=== PATIENT | male | born 1945 | race African-American/Black ===

== ENCOUNTER 2020-01-22 17:54 | Inpatient (IN) | payer MEDICARE, OTHER ==
--- NOTE | 2020-01-22 21:01 | PDOC.HHP ---
Hospitalist HPI - History of Present Illness chest pain, a-fib History of Present Illness: Mr. Lee is a 75 year-old male with a PMHx of T2DM, HTN, HLD< gout, anxiety, schizophrenia, tobacco abuse who was transferred from [facility] for chest pain r/o and new-onset a-fib. Mr. Lee reports that over the past two weeks he has had chest discomforts which he describes as a pressure at the bottom of his kianna rnum. Also endorses sour-stomach, but denies SOB, palpitations, dizziness. Denies peluritic pain. Pain is intermittent and not associated with food. Denies aggravating/alleviating factors. States he has been to the ER a few times a year for chest pain, but that they never find anything. No cardiac history. Pt reports his ENT doctor told him he was in a-fib once when he listened to his heart, but has never seen a devulcanizer loader or had his PCP work this up. CHADsVASc score of 4 (CHF, HTN, Age, DM). Patient denies any history of uncontrolled HTN, GIB, or any other bleeding disorders. In the ED vital signs 125/87, 106, 20, 99.0, 98% on RA. EKG showed a-fib with ventricular rate of 110. CXR with mild cardiomegaly. BNP elevated to 395, Troponin elevated at 0.040, H/H 13.2/41.5, WBC 7.2. CKMB 2.0. Na 139, K 3.0, BUN/Cr 14/1.47. Patient received 325 mg of ASA and 20 mg furosemide IV. Hospitalist ROS - Review of Systems Constitutional: denies: fever, chills, sweats, weakness, malaise, other Eyes: denies: pain, vision change, conjunctivae inflammation, eyelid inflammation, redness, other ENT: denies: ear pain, ear discharge, nose pain, nose discharge, nose congestion, mouth pain, mouth swelling, throat pain, throat swelling, other Respiratory: denies: cough, dry, shortness of breath, hemoptysis, SOB with excertion, pleuritic pain, sputum, wheezing, other Cardiovascular: reports: chest pain. denies: palpitations, orthopnea, paroxysmal noc. dyspnea, edema, light headedness, other Gastrointestinal: denies: nausea, vomiting, abdominal pain, diarrhea, constipation, melena, hematochezia, other Genitourinary: denies: dysuria, frequency, incontinence, hematuria, retention, other Musculoskeletal: denies: neck pain, shoulder pain, arm pain, back pain, hand pain, leg pain, foot pain, other Skin: denies: rash, lesions, mari, bruising, other Neurological: denies: weakness, numbness, incoordination, change in speech, confusion, seizures, other - Medication Medications: Home medications include: HCTZ 25 mg daily Risperdal 0.5 mg qhs Simethicone 80 mg with meals Atorvastatin 10 mg daily Protonix 40 mg daily Metfromin 500 mg BID ASA 81 mg daily Amlodipine 10 mg daily Naproxen 250 mg daily VItamin D Trazodone 100 mg qhs Fluoxetine 20 mg daily allopurinol 300 mg daily loratadine 10 mg prn hydroxyzine 50 mg prn anxiety ativan 2 mg prn anxiety NKDA Hospitalist History - Past Medical History Other Medical History: Type 2 DM HTN HLD Schizophrenia Gout Tobacco use GERD No history of cardiac disease, although pt states he has had episodes of chest pain in the past which have all been negative. Has been years since had a stress test. - Past Surgical History Other Surgical History: appendectomy - Family History Other Family History: cardiac - Social History Smoking Status: Current every day smoker Tobacco Type: snuff Alcohol: reports: None Drugs: reports: none Living Situation: With Family Activity level: independent ambulation - Exam General Appearance: NAD, awake alert Eye: PERRL, anicteric sclera ENT: normocephalic atraumatic, no oropharyngeal lesions, moist mucosa Neck: supple, symmetric, no JVD, no thyromegaly, no lymphadenopathy, no carotid bruit Heart: no murmur, no gallops, no rubs, normal peripheral pulses, irregular Respiratory: CTAB, no wheezes, no rales, no ronchi, normal chest expansion, no tachypnea, normal percussion Gastrointestinal: soft, non-tender, non-distended, normal bowel sounds, no palpable masses, no hepatomegaly, no splenomegaly, no bruit Extremities: no cyanosis, 2+ LE edema Skin: normal turgor, no lesions, no rashes Neurological: cranial nerve grossly intact, normal sensation to touch, no weakness, no focal deficits, no new deficit Musculoskeletal: normal tone, normal strength, no muscle wasting Psychiatric: normal affect, normal behavior, A&O x 3 Hospitalist Results - Labs Result Diagrams: 01/22/20 22:58 Hospitalist H&P A/P - Problem (1) Chest pain Code(s): R07.9 - CHEST PAIN, UNSPECIFIED Status: Acute (2) Atrial fibrillation Code(s): I48.91 - UNSPECIFIED ATRIAL FIBRILLATION Status: Acute (3) Elevated troponin Code(s): R79.89 - OTHER SPECIFIED ABNORMAL FINDINGS OF BLOOD CHEMISTRY Status: Acute (4) Type 2 diabetes mellitus Status: Acute (5) Hypertension Code(s): I10 - ESSENTIAL (PRIMARY) HYPERTENSION Status: Acute (6) Hyperlipidemia Code(s): E78.5 - HYPERLIPIDEMIA, UNSPECIFIED Status: Acute (7) GERD (gastroesophageal reflux disease) Code(s): K21.9 - GASTRO-ESOPHAGEAL REFLUX DISEASE WITHOUT ESOPHAGITIS Status: Acute (8) Schizophrenia Code(s): F20.9 - SCHIZOPHRENIA, UNSPECIFIED Status: Acute (9) Gout Code(s): M10.9 - GOUT, UNSPECIFIED Status: Acute - Plan Plan: Chest pain: 75M hx of HTN, HLD, T2DM presents with 2 weeks of intermittent chest pain described as a substernal pressure found to be in atrial fibrillation. Initial troponin 0.040. EKG showed a-fib with ventricular rate of 110. Pt HD stable. Received ASA 325 at OSH. Pt denies history of cardiac problems. Last stress test was years ago. PLAN: -Telemetry -Trend troponins -Stress test in am if troponins do not rise -Echocardiogram Atrial fibrillation: New onset a-fib in 75M. CHADsVASc score 4. Pt denies history of GIB, but does take naproxen and ASA regularly. No recent surgeries or bleeding disorders. Patient describes chest discomfort likely 2/2 to his a-fib for the past two weeks, likely out of the 48 hr window. Will initiate anticoagulation with heparin drip and initiate rate control with IV metoprolol. Cardiology input appreciated. PLAN: -Echocardiogram -TSH, Mg, Ca, Phos -Cardiology consult -Metoprolol -AC with heparin drip Elevation in Cr level: BUN/Cr 14/1.47. Unsure of baseline, but Cr in 2014 was 1.1, ? MATT. Pt denies history of CKD, although has not seen PCP in years. May be component of cardiorenal 2/2 CHF, so will hold off on IVF and monitor at this time. PLAN: -Trend renal function -Avoid nephrotoxic medications when possible Congestive Heart Failure: Pt p/w chest discomfort. Found to have mild JVD and 2+ LE edema on exam. BNP elevated to 395. CXR with stable cardiomegaly. Received 20 mg lasix IV at OSH. Lungs clear. 2+ edema. Respiratory status stable. No echo on file. Pt denies history of CHF. PLAN: -Echocardiogram -Cardiology consult -Continue to monitor respiratory and fluid status Hypomagnesemia: Mg low normal of 1.7. Will replete to maintain >2 for cardiac optimization. PLAN: -Magnesium 2 g IV -Monitor and replete as needed Type 2 DM: Hx of T2DM on metformin. Will hold in setting of elevated Cr. PLAN: -ISS mild -CC diet -ACHS glucose checks Schizophrenia: Hx of schizophrenia on risperdal, ativan, fluoxetine, and traxodone. Will continue home medications. Mood stable. Hypertension: On home amlodipine, HCTZ. Will hold to allow for room in BP to rate-control a- fib. Hyperlipidemia: On home atorvastatin. Continue. Will check lipid level in am. GERD: On home protonix, simethicone. Will continue home meds. Gout: Continue home allopurinol. Pt denies any current symptoms. DVT prophylaxis: Heparin drip 2/2 a-fib FULL CODE: MDM Pt's sister Wilver Lee. Case discussed with attending physician, Dr. Conklin.
[2020-01-22 21:55] LABS: Troponin I 0.054 ng/mL (< 0.028)
[2020-01-22] MEDS ORDERED: Heparin 10,000 UNITS/ 10 ML VIAL SLOW IVP SCH (22:30)
[2020-01-22] MEDS ORDERED: Heparin 25,000 units/D5W 500 ML IVPB SCH (22:30)
[2020-01-22] MEDS ORDERED: Metoprolol Tartrate 25 MG TAB PO SCH (23:15)
[2020-01-22] MEDS ORDERED: Magnesium 2 GM/50 ML 2 GM in Premix Bag 1 BAG IVPB SCH (23:15)
[2020-01-22] MEDS ORDERED: Metoprolol Tartrate 5 MG/5 ML VIAL IVP SCH (23:15)
[2020-01-22 23:35] VITALS: BMI 37.0
[2020-01-23 00:28] LABS: Hemoglobin 13.1 g/dL (14.0-18.0); Platelet Count 278 thou/uL (130-400)
[2020-01-23 00:53] LABS: Troponin I 0.049 ng/mL (< 0.028)
[2020-01-23] MEDS ORDERED: Dextrose 5% in Water 1,000 ML IV PRN (02:52)
[2020-01-23] MEDS ORDERED: HumaLOG 300 UNITS/3 ML VIAL SC PRN ×2 (02:52)
[2020-01-23] MEDS ORDERED: Dextrose 50% Abboject 50 ML SYRINGE SLOW IVP PRN (02:52)
[2020-01-23 04:53] LABS: Anion Gap 14 mmol/L (10-20); BUN (Urea Nitrogen) 17 mg/dL (8.4-25.7); Calc. Creatinine Clearance 66 mL/min (70-130); Calcium 8.8 mg/dL (7.8-10.44); Carbon Dioxide 21 mmol/L (23-31); Chloride 107 mmol/L (98-107); Estimated GFR-MDRD 64; Glucose 124 mg/dL (83-110); Magnesium 2.1 mg/dL (1.6-2.6); Potassium 4.3 mmol/L (3.5-5.1); Sodium 138 mmol/L (136-145)
[2020-01-23 04:56] LABS: Eosinophils 4 % (0-10); Hemoglobin 13.4 g/dL (14.0-18.0); Lymphocytes 57 % (21-51); MDiff Complete? YES; Mean Corpuscular Hemoglobin 30.1 pg (27.0-31.0); Mean Corpuscular Volume 88.5 fL (78.0-98.0); Mean Platelet Volume 7.6 fL (7.4-10.4); Monocytes 6 % (0-10); Neutrophil 28 % (42-75); Platelet Count 259 thou/uL (130-400); Reactive Lymphocytes 5 % (0-10); Red Blood Cell (RBC) Count 4.46 mill/uL (4.70-6.10)
[2020-01-23 05:14] LABS: CKMB 1.6 ng/mL (0-6.6)
[2020-01-23] MEDS ORDERED: Metoprolol Tartrate 25 MG TAB PO SCH (09:00)
[2020-01-23] MEDS ORDERED: Regadenoson 0.4 MG/5 ML SYRINGE ONE (11:56)
[2020-01-23 11:59] LABS: SARS-CoV-2 MS2 Positive; SARS-CoV-2 N Gene Negative; SARS-CoV-2 S Gene Negative; SARS-CoV-2 by NAA Not Detected (NotDetected); SARS-CoV-2 orf1ab Negative
--- NOTE | 2020-01-23 14:15 | NM ---
NUCLEAR MEDICINE CARDIAC MYOCARDIAL PERFUSION SPECT EJECTION FRACTION STUDY WALL MOTION CINE: DATE: 01/23/2020 HISTORY: 75-year-old male smoker with dyslipidemia, diabetes mellitus, hypertension, and atrial fibrillation, presents with chest pain TECHNIQUE: Number of days: 1 Rest study: Technetium 99m-sestamibi (Cardiolite) dose:9.7 mCi Pharmacologic stress: Lexiscan dose: 0.4 mg Stress study: Technetium 99m-sestamibi (Cardiolite) dose:27.6 mCi FINDINGS: CARDIAC (MYOCARDIAL PERFUSION) SPECT Fixed myocardial perfusion defect at anteroseptal wall. Apparent fixed defect at posterior inferior w all. No reversible perfusion defect identified.. EJECTION FRACTION STUDY Left ventricular EF = 23 % WALL MOTION CINE Global hypokinesis, especially septum IMPRESSION: 1) Global hypokinesis and very low left ventricular ejection fraction of 23%. 2) infarction/scars. 3) no reversible ischemia identified
[2020-01-23] MEDS ORDERED: Aspirin 81 mg Enteric Coated Tablet PO SCH (15:30)
[2020-01-23] MEDS ORDERED: Communication Order-Pharmacy FS SCH (15:45)
--- NOTE | 2020-01-23 16:50 | PDOC.EVN ---
Event Note - Event Note Event Note: notified at 4:30pm that patient requests to leave AMA. Spoke with patient and informed patient regarding stress test results, their meaning, and his possible risk for sudden . Patient said he would stay. About 5 minutes later, patient decided to leave AMA. Called again and asked patient to stay but patient claimed he had social issues that had to be taken care of. Asked patient to see his primary care physician as soon as possible to resume care.
[2020-01-23 16:59] VITALS: BP 136/88; TEMP 99.1
[2020-01-23] MEDS ORDERED: Carvedilol 6.25 MG TAB PO SCH (17:00)
--- NOTE | 2020-01-23 20:33 | PDOC.HOSPP ---
- Subjective Encounter Date: 01/23/20 Encounter Time: 09:00 Subjective: no overnight events. this morning, feeling well and has no complaints. Chest pain resolved. Requested to leave but explained regarding current condition, risk of treatment and nontreatment. Reiterated and expressed understanding, decisional capacity. - Objective Vital Signs & Weight: Vital Signs (12 hours) Temp Pulse Resp BP Pulse Ox 01/23/20 14:02 99.1 F 85 18 136/88 99 Weight Weight 215 lb 11.2 oz I&O: 01/22/20 01/23/20 01/24/20 06:59 06:59 06:59 Intake Total 535 Output Total 150 Balance 385 Result Diagrams: 01/23/20 04:20 01/23/20 04:20 Additional Labs: Accuchecks 01/23/20 01/23/20 14:05 06:01 POC Glucose 120 H 108 H Hospitalist ROS - Review of Systems Constitutional: denies: chills, sweats Respiratory: denies: cough, shortness of breath, SOB with excertion Cardiovascular: reports: edema. denies: chest pain, palpitations, orthopnea, paroxysmal noc. dyspnea Gastrointestinal: denies: nausea, vomiting, abdominal pain Genitourinary: denies: dysuria, frequency, hematuria - Exam General Appearance: NAD, awake alert Neck: JVD Heart: no murmur, no gallops, irregular Heart - other findings: variable aflut on telemetry Respiratory: CTAB, no wheezes, no rales, no ronchi Gastrointestinal: soft, non-tender, non-distended, normal bowel sounds Extremities - other findings: b/l equal pitting edema to knee level Psychiatric: normal affect, A&O x 3 Psychiatric - other findings: hypomanic Hosp A/P - Plan #chest pain -atypical pain, intermediate pretest probability; -pending stress test, cardiology evaluation #atrial fibrillation per patient, was diagnosed 3 years ago but not anticoagulated currently on heparin based on CHADSVASC, rate well controlled continue current management Full code ELOS 1-2 nights
--- NOTE | 2020-01-23 22:21 | CON ---
DATE OF CONSULTATION: HISTORY: Ashish Lee is a 75-year-old black male, who was transferred from [facility] for evaluation of chest discomfort and atrial fibrillation. Over the last 2 weeks, he did have episodes of chest pressure, some of which would last for 1 or 2 days continuously. He also has had some shortness of breath and palpitations. He was told approximately 2 years ago by his .net architect that he had an abnormal heart rhythm and was probably in atrial fibrillation. He has not had that evaluated though. He has been found to have an abnormal Cardiolite and Cardiology consultation is requested. At the present time, the patient denies any symptoms. PAST MEDICAL HISTORY: Remarkable for hypertension, diabetes, hypercholesterolemia, schizophrenia, gout, and GERD. PAST SURGICAL HISTORY: Appendectomy. MEDICATIONS: 1. Hydrochlorothiazide daily. 2. Risperdal 0.5 at bedtime. 3. Atorvastatin 10 mg daily. 4. Protonix 40 daily. 5. Metformin 500 b.i.d. 6. Aspirin 81 daily. 7. Amlodipine 10 mg daily. 8. Naproxen 250 2 tablets q.a.m. 9. Trazodone 100 mg at bedtime. 10. Fluoxetine 20 daily. 11. Allopurinol 300 daily. 12. Loratadine 10 mg p.r.n. 13. Hydroxyzine 50 mg p.r.n. 14. Ativan 2 mg p.r.n. anxiety. ALLERGIES: NONE. SOCIAL HISTORY: He smokes 4 or 5 cigarettes per day and dips snuff. He does not drink alcohol. REVIEW OF SYSTEMS: A 10-point review of systems unremarkable. PHYSICAL EXAMINATION: VITAL SIGNS: Blood pressure 112/57, pulse of 80. HEENT: PERRL. NECK: Supple. CHEST: Clear. CARDIAC: S1 and S2 normal without any S3, S4, or murmurs. ABDOMEN: Normal bowel sounds without tenderness or organomegaly. EXTREMITIES: Revealed no clubbing, cyanosis, or edema. NEUROLOGIC: Grossly intact. SKIN: Warm and dry. LABORATORY DATA: EKG reveals atrial fibrillation with nonspecific ST and T-wave changes. Hemoglobin 13.4, hematocrit 39.5, white count 7000, platelets 259,000. Sodium 138, potassium 4.3, chloride 107 carbon dioxide 21, BUN 17, creatinine 1.31; creatinine was 1.47 at admission. Troponin I is 0.054. TSH is normal. Adenosine Cardiolite test revealed a fixed anteroseptal and posterior inferior wall defects There was no evidence of reversible ischemia. Ejection fraction was 23% with global hypokinesis, especially the septum. IMPRESSION: 1. Severe left ventricular dysfunction with ejection fraction on Cardiolite of 23%. 2. Fixed myocardial defects of the anteroseptal wall and the posterior inferior wall, probable coronary artery disease. 3. Hypertension. 4. Diabetes. 5. Hypercholesterolemia. 6. Smoker. 7. History of schizophrenia. PLAN: With left ventricular dysfunction, metoprolol will be discontinued, and instead, he will be transitioned to carvedilol. Echocardiogram will be performed to better assess left ventricular function. With his abnormal Cardiolite and multiple cardiac risk factors, it is recommended that he undergo cardiac catheterization. Risks of this were discussed including , myocardial infarction, dye reaction, vascular injury, CVA, transfusion, limb loss, renal loss, etc. Also, risk of intervention with PTCA and stent placement were discussed including , myocardial infarction, emergent CABG, restenosis, stent thrombosis, vessel perforation, etc. He has no history of GI bleeding or stroke or upcoming surgeries and a drug-eluting stent will be placed if needed. Also, with his renal insufficiency, I would not renew his home medicines of hydrochlorothiazide and Naprosyn. Job ID: [id number] VINCE
--- NOTE | 2020-01-24 01:44 | DIS ---
DATE OF ADMISSION: 01/23/2020 DATE OF DISCHARGE: 01/23/2020 HOSPITAL COURSE: Mr. Lee is a 75-year-old male with medical history of type 2 diabetes, hypertension, and tobacco abuse, who presented with atypical chest pain and atrial fibrillation with RVR. Cardiology was consulted, and a stress test was carried out. The stress test showed global hypokinesis, and a fixed myocardial perfusion defect of the anterior septal wall as well as an ejection fraction of 23%. This was confirmed with an echocardiogram. The patient was scheduled for left heart catheterization, however, chose to leave against medical advice after exhibiting decisional capacity following multiple conversations regarding current conditions, risks of treatment, and nontreatment. Prior to him leaving, the patient was requested to follow up with his primary care physician as soon as possible in order to address his findings on the stress test. PHYSICAL EXAMINATION: VITAL SIGNS: Blood pressure 136/88, pulse 85, respiratory rate 18, oxygen saturation 99% on room air, temperature 99.1. For the remaining physical exam, please refer to the progress note from the same day of discharge. The patient left against medical advice prior to being able to send. Job ID: [id number]
[2020-01-24] MEDS ORDERED: Sodium Chloride 0.9% 1,000 ML IV SCH (06:00)
[2020-01-24] MEDS ORDERED: Aspirin 81 mg Enteric Coated Tablet PO SCH (09:00)
--- NOTE | 2020-01-24 16:06 | EKG ---
Test Reason : CP Blood Pressure : / mmHG Vent. Rate : 104 BPM Atrial Rate : 267 BPM P-R Int : 000 ms QRS Dur : 110 ms QT Int : 372 ms P-R-T Axes : 000 038 237 degrees QTc Int : 489 ms Atrial fibrillation Non-specific intra-ventricular conduction delay Nonspecific ST and T wave abnormality Abnormal ECG Confirmed by KAYLEN GILL ([id number]) on 01/24/2020 4:06:00 PM Referred By: LISA Confirmed By:KAYLEN GILL
--- NOTE | 2020-01-26 22:42 | PQF ---
CLINICAL DOCUMENTATION CLARIFICATION FORM: Dear : Dion Lockwood MD Date / Time: 01/26/2020 Please exercise your independent, professional judgment in responding to the clarification form. Clinical indicators are provided on the bottom of this form for your review Please check appropriate box(es): HEART FAILURE: A. ACUITY [ ] Acute [ x ] Acute on Chronic [ ] Chronic B. TYPE: [x ] Systolic / HFrEF [ ] Diastolic / HFpEF [ ] Combined Systolic / Diastolic [ ] Hypertensive Heart Disease [ ] Other diagnosis (Please specify if any) [ ] Unable to determine Physician Signature: Date/Time: For continuity of documentation, please document condition throughout progress notes and discharge summary. Thank You. To be completed by CDI/Coding staff for physician review: Present Clinical Indicators - Signs / Symptoms / Labs Results and Location in Medical Record [ x] Ejection Fraction = 23 % Stress test nuclear medicine on 01/22 [ ] Dyspnea, Hypoxia [ x ] Peripheral edema 2+LE edema on exam - H&P on 01/21 [ x ] Elevated BNP BNP:395 - ED provider reports on 01/22 [ x ] JVD Mild JVD H&P on 01/21 [ x ] Orthopnea / SOB / dyspnea Reports SOB - ED provider reports on 01/22 [ ] Pleural effusion / pulmonary edema [ x ] CXR results CXR with stable cardiomegaly H&P on 01/21 [ ] Arrhythmia--tachycardia Present Risk Factors Results and Location in Medical Record [ ] History of CAD/ischemic heart disease [x ] CKD Hypertension HTN - ED provider reports on 01/22 [ ] History of AK Present Treatments Results and Location in Medical Record [ ] Administration of MARISSA / ARB / BB [ x ] Received 20 mg lasix IV at OSH H&P on 01/21 [ x ] Patient received 325 mg of ASA and 20mg furosemide IV H&P on 01/21 [ ] Oxygen [ ] AICD [x] Cardiology Consult Consult on 01/22 CDS/Taxi Dancer Signature: AAS Phone #: Date/Time: 01/26/2020 This is a permanent part of the Medical Record [facility]
== END 2020-01-23 16:51 | disposition left against medical advice (07) | DRG 308 ==
LOC: ERS 17:54 → 2SW 22:15 → OBSVTOIN 01-23 15:25
PROVIDERS: ADMIT Student in an Organized Health Care Education/Training Program; ATTEND Student in an Organized Health Care Education/Training Program
DX: I48.91 Unspecified atrial fibrillation (principal); I50.23 Acute on chronic systolic (congestive) heart failure; R07.89 Other chest pain; K21.9 Gastro-esophageal reflux disease without esophagitis; E11.9 Type 2 diabetes mellitus without complications; F41.9 Anxiety disorder, unspecified; M10.9 Gout, unspecified; E78.5 Hyperlipidemia, unspecified; F20.9 Schizophrenia, unspecified; I25.10 Atherosclerotic heart disease of native coronary artery without angina pectoris; R79.89 Other specified abnormal findings of blood chemistry; E83.42 Hypomagnesemia; Z79.899 Other long term (current) drug therapy; Z90.49 Acquired absence of other specified parts of digestive tract; Z79.82 Long term (current) use of aspirin; Z87.891 Personal history of nicotine dependence; Z79.84 Long term (current) use of oral hypoglycemic drugs; Z53.29 Procedure and treatment not carried out because of patient's decision for other reasons; Z20.828 Contact with and (suspected) exposure to other viral communicable diseases; I51.7 Cardiomegaly; I11.0 Hypertensive heart disease with heart failure
CPT/HCPCS: 36415; 36416; 78452; 80048; 82553; 83735; 84443; 85025; 85730; 87635; 93005; 93010; 93017; 93306; 96365; 96366; 96367; 96375; 99285; A9500; G0378; J1644; J2785; J3475; U0003

== ENCOUNTER 2020-01-27 16:32 | Emergency (ER) | payer MEDICARE | END 2020-01-27 18:58 | disposition left against medical advice (07) | LOC: ERS 16:32 | DX: Z53.21 Procedure and treatment not carried out due to patient leaving prior to being seen by health care provider (principal) | CPT/HCPCS: 36416 ==

== ENCOUNTER 2020-02-09 14:23 | Outpatient (CLI) | payer MEDICARE ==
[2020-02-09 18:23] LABS: #Eosinphils 0.2 thou/uL (0.0-0.7); #Lymphocytes 2.9 thou/uL (1.20-3.40); #Monocytes 0.6 thou/uL (0.11-0.59); #Neutrophils 2.8 thou/uL (1.40-6.50); %Basophils 0.7 % (0.0-1.0); %Lymphocytes 43.9 % (21.0-51.0); %Monocytes 9.7 % (0.0-10.0); %Neutrophils 42.7 % (42.0-75.0); Hemoglobin 12.6 g/dL (14.0-18.0); Mean Corpuscular HGB CONC 32.8 g/dL (32.0-36.0); Mean Corpuscular Hemoglobin 28.6 pg (27.0-31.0); Mean Corpuscular Volume 87.4 fL (78.0-98.0); Mean Platelet Volume 8.3 fL (7.4-10.4); Platelet Count 277 thou/uL (130-400); RBC Distribution Width 13.6 % (11.5-14.5); Red Blood Cell (RBC) Count 4.39 mill/uL (4.70-6.10); White Blood Cell (WBC) Count 6.6 thou/uL (4.8-10.8)
[2020-02-09 21:36] LABS: ALT (SGPT) 14 U/L (8-55); AST (SGOT) 17 U/L (5-34); Albumin 3.7 g/dL (3.4-4.8); Alkaline Phosphatase 76 U/L (40-110); Anion Gap 14 mmol/L (10-20); BUN (Urea Nitrogen) 14 mg/dL (8.4-25.7); Bilirubin, Total 0.6 mg/dL (0.2-1.2); Calc. Creatinine Clearance 0 mL/min (70-130); Calcium 9.1 mg/dL (7.8-10.44); Carbon Dioxide 21 mmol/L (23-31); Chloride 108 mmol/L (98-107); Estimated GFR-MDRD 64; Globulin 3.1 g/dL (2.4-3.5); Glucose 85 mg/dL (83-110); Potassium 4.6 mmol/L (3.5-5.1); Protein, Total 6.8 g/dL (5.8-8.1); Sodium 138 mmol/L (136-145)
[2020-02-10 12:52] LABS: SARS-CoV-2 MS2 Positive; SARS-CoV-2 N Gene Negative; SARS-CoV-2 S Gene Negative; SARS-CoV-2 by NAA Not Detected (NotDetected); SARS-CoV-2 orf1ab Negative
== END 2020-02-09 14:24 | disposition home or self-care (01) ==
LOC: LABBT 14:23
PROVIDERS: ATTEND Internal Medicine Cardiovascular Disease
DX: Z01.818 Encounter for other preprocedural examination (principal); Z20.828 Contact with and (suspected) exposure to other viral communicable diseases
CPT/HCPCS: 80053; 85025; 93005; U0003; 87635; 93010

== ENCOUNTER 2020-02-14 06:00 | Inpatient (IN) | payer MEDICARE, OTHER ==
[2020-02-14] MEDS ORDERED: Lidocaine 1% (PF) 30 ML VIAL ONE (06:32)
[2020-02-14] MEDS ORDERED: Heparin 10,000 UNITS/ 10 ML VIAL ONE (06:32)
[2020-02-14] MEDS ORDERED: Midazolam HCl 2 mg/2 ml Vial ONE (07:08)
[2020-02-14] MEDS ORDERED: Fentanyl 100 MCG/2 ML VIAL ONE (07:09)
[2020-02-14] MEDS ORDERED: Protamine Sulfate 50 MG/5 ML VIAL ONE (07:23)
[2020-02-14] MEDS ORDERED: Sodium Chloride 0.9% 200 ML IV PRN (08:15)
[2020-02-14] MEDS ORDERED: Nitroglycerin 0.4 MG TAB (25 Tab Bottle) SL PRN (08:15)
[2020-02-14] MEDS ORDERED: Sodium Chloride 0.9% 1,000 ML IV SCH ×2 (08:15→14:15)
[2020-02-14] MEDS ORDERED: Acetaminophen/Codeine 30-300mg Tablet PO PRN ×2 (08:15)
[2020-02-14] MEDS ORDERED: Loratadine 10 MG TAB PO PRN (09:55)
[2020-02-14] MEDS ORDERED: hydrOXYzine 25 MG TAB PO PRN ×2 (09:58→15:09)
--- NOTE | 2020-02-14 10:53 | HP ---
INTERIM NOTE Mr. Lee underwent cardiac catheterization today, which revealed mild coronary artery disease, but severe left ventricular dysfunction with ejection fraction of 15% to 20%. He continues to remain in atrial fibrillation with fast ventricular response. On his last admission, he signed out against medical advice and is not on any heart failure medications. He will be admitted, started on carvedilol. He does have some degree of renal insufficiency and it is unknown at this time if he would tolerate an MARISSA or an ARB. He will be placed on low-dose furosemide. He also will be loaded with amiodarone and in 48 hours, started on anticoagulation. We did discuss possible transesophageal echo and electrical cardioversion in 3 days. Risks of this were discussed including , stroke, worse heart rhythm, embolic event, etc. We also discussed the need for a LifeVest and for repeat echo in 3 months and then consideration of defibrillator if his left ventricular function does not improve. Job ID: [id number] MTDD
[2020-02-14] MEDS ORDERED: Furosemide 20 MG TAB PO SCH (11:30)
[2020-02-14] MEDS ORDERED: Amiodarone 200 MG TAB PO SCH (11:30)
[2020-02-14] MEDS ORDERED: Carvedilol 3.125 MG TAB PO SCH ×2 (11:30→17:00)
[2020-02-14] MEDS ORDERED: Allopurinol 300 MG TAB PO SCH (11:30)
[2020-02-14] MEDS: Amiodarone 200 MG TAB PO SCH ×3 (13:34→21:45)
[2020-02-14] MEDS: Furosemide 20 MG TAB PO SCH (13:34)
[2020-02-14] MEDS ORDERED: HOLD HYPOGLYCEMIC MEDS AM OF CATH FS SCH (14:15)
[2020-02-14] MEDS ORDERED: Non-Formulary Item 1 EACH (Hydroxyzine Hcl [Hydroxyzine Hcl] 50 MG Tablet) PO PRN (15:04)
[2020-02-14] MEDS ORDERED: HumaLOG 300 UNITS/3 ML VIAL SC PRN (15:10)
[2020-02-14] MEDS ORDERED: Dextrose 50% Abboject 50 ML SYRINGE SLOW IVP PRN (15:10)
[2020-02-14] MEDS ORDERED: Dextrose 5% in Water 1,000 ML IV PRN (15:10)
--- NOTE | 2020-02-14 15:26 | CON ---
DATE OF CONSULTATION: 02/14/2020 PRIMARY CARE PROVIDER: Dr. Vishal Jiang. CHIEF COMPLAINT: Management of medical comorbidities. HISTORY OF PRESENT ILLNESS: Mr. Lee is a pleasant 75-year-old gentleman, who was seen at [facility] on February 14, 2020. He was hospitalized at this facility on January 23, 2020, for atrial fibrillation with rapid ventricular response. He left against medical advice. Earlier today, he underwent cardiac catheterization. He was found to have mild CAD and severe impairment of left ventricular function. He is being admitted to the hospital for the same. Hospitalist Service was consulted for management of medical comorbidities. Mr. Lee denies any chest pain. He reports occasional palpitations. He reports chronic cough that has been going on at least since April 2019, nonproductive. He reports bilateral lower extremity edema. He denies any fevers or chills. He denies any abdominal pain, nausea, vomiting, or diarrhea. REVIEW OF SYSTEMS: All systems were reviewed and found to be negative except for the pertinent positives mentioned above. PAST MEDICAL HISTORY: Hypertension, dyslipidemia, gout, gastroesophageal reflux disease, diabetes mellitus type 2. SURGICAL HISTORY: Appendectomy. SOCIAL HISTORY: The patient reports smoking cigarettes every 3 or 4 days. He also reports using snuff. He denies alcohol use or recreational drug use. FAMILY HISTORY: Hypertension in mother and stomach cancer in father. ALLERGIES: NO KNOWN DRUG ALLERGIES. HOME MEDICATIONS: 1. Amitriptyline 50 mg at bedtime. 2. Cetirizine 10 mg as needed. 3. Aspirin 81 mg daily. 4. Fluoxetine 20 mg daily. 5. Metformin 500 mg in the evening. 6. Hydroxyzine 50 mg as needed. 7. Lipitor 10 mg at bedtime. 8. Naproxen p.r.n. 9. Amlodipine 10 mg daily. 10. Protonix 40 mg daily. 11. Risperidone 0.5 mg at bedtime. 12. Vitamin D3, 50 mcg daily. 13. Allopurinol 300 mg daily. PHYSICAL EXAMINATION: GENERAL: Mr. Lee is awake and alert, not in acute distress. VITAL SIGNS: Blood pressure is 129/75, pulse 112, respiratory rate 18, and oxygen saturation 99% on room air. He is afebrile. He is obese, with a BMI of 37.3. EYES: No scleral icterus. No conjunctival pallor. ENT: Moist mucosal membranes. No oropharyngeal erythema or exudates. NECK: Supple, nontender. Trachea is midline. RESPIRATORY: Accessory muscles of breathing are not active. Chest wall movements are symmetric bilaterally. Lungs are clear to auscultation without wheeze, rhonchi, or crepitations. CARDIOVASCULAR: S1 and S2 are heard, irregular. Peripheral pulses palpable. ABDOMEN: Soft, nontender. Bowel sounds are heard. NEUROLOGIC: Cranial nerves 2 through 12 are intact. MUSCULOSKELETAL: Power is 5/5 in all 4 extremities. SKIN: He has bilateral lower extremity edema. LYMPHATIC: No cervical lymphadenopathy. PSYCHIATRIC: Normal mood. Normal affect. The patient is alert and oriented x3. LABORATORY DATA AND INVESTIGATIONS: Mr. Lee' labs and investigations were reviewed. pvc monitor shows atrial fibrillation. Activated clotting time is 142. ASSESSMENT AND PLAN: Mr. Lee is a pleasant 75-year-old gentleman, who was seen at [facility] on February 14, 2020 for management of medical comorbidities. His problem list includes: 1. Diabetes mellitus type 2: I will start him on Accu-Cheks and insulin sliding scale. His creatinine was elevated at 1.31 on February 09, 2020. This appears to have been chronic kidney disease stage 3. He received intravenous contrast for angiogram. Therefore, we will hold metformin for now. 2. Dyslipidemia: Continue statin. 3. Schizophrenia: Continue amitriptyline and risperidone. Also, continue fluoxetine. 4. Hypertension: The patient has been started on Coreg, continue. Discontinue amlodipine because of reduced LVEF. 5. Atrial fibrillation: Monitor on telemetry. The patient is hemodynamically stable. Many thanks for allowing me to participate in your patient's care. Please feel free to contact me with any questions or concerns. LEVEL OF RISK: Moderate. LEVEL OF COMPLEXITY: Moderate. Job ID: [id number]
[2020-02-14] MEDS ORDERED: Non-Formulary Item 1 EACH (Amitriptyline Hcl [Amitriptyline Hcl] 50 MG Tablet) PO SCH (21:00)
[2020-02-14] MEDS: Atorvastatin Calcium 10 MG TAB PO SCH (21:45)
[2020-02-14] MEDS: risperiDONE 1 MG TAB PO SCH (21:45)
[2020-02-14] MEDS ORDERED: DC ENOXAPARIN NIGHT BEFORE CATH FS SCH (22:00)
[2020-02-15 04:37] LABS: Anion Gap 13 mmol/L (10-20); BUN (Urea Nitrogen) 16 mg/dL (8.4-25.7); Calc. Creatinine Clearance 72 mL/min (70-130); Calcium 9.2 mg/dL (7.8-10.44); Carbon Dioxide 22 mmol/L (23-31); Chloride 107 mmol/L (98-107); Cholesterol 131 mg/dl (< 200 Desired); Estimated GFR-MDRD 70; Glucose 115 mg/dL (83-110); HDL Cholesterol 43 mg/dL (>60 Neg Risk); LDL Cholesterol, Calculated 69 mg/dL; Potassium 4.6 mmol/L (3.5-5.1); Sodium 137 mmol/L (136-145); Triglycerides 93 mg/dL (Less than 150)
[2020-02-15] MEDS: Allopurinol 300 MG TAB PO SCH (08:54)
[2020-02-15] MEDS: FLUoxetine HCl 20 MG CAP PO SCH (08:54)
[2020-02-15] MEDS: Aspirin 81 mg Enteric Coated Tablet PO SCH (08:54)
[2020-02-15] MEDS: Furosemide 20 MG TAB PO SCH (08:55)
[2020-02-15] MEDS: Carvedilol 6.25 MG TAB PO SCH ×2 (08:55→17:13)
[2020-02-15] MEDS: Amiodarone 200 MG TAB PO SCH ×3 (08:55→20:33)
[2020-02-15] MEDS: Cholecalciferol 1,000 UNITS (25 MCG) TAB PO SCH (08:55)
[2020-02-15] MEDS: Amitriptyline HCl 10 MG TAB PO SCH (08:55)
[2020-02-15] MEDS ORDERED: FLU VACC QS2020-21(6MOS UP)/PF 60 MCG/0.5 ML SYRINGE IM ONE (09:00)
[2020-02-15] MEDS ORDERED: Non-Formulary Item 1 EACH (Fluoxetine Hcl [Fluoxetine Hcl] 20 MG Tablet) PO SCH (09:00)
[2020-02-15] MEDS ORDERED: Allopurinol 300 MG TAB PO SCH (09:00)
--- NOTE | 2020-02-15 16:00 | PDOC.HOSPP ---
- Subjective Encounter Date: 02/15/20 Encounter Time: 08:30 Subjective: Patient seen for follow-up regarding diabetes mellitus type 2. He denies any chest pain or shortness of breath. - Objective Vital Signs & Weight: Vital Signs (12 hours) Temp Pulse Pulse Pulse Resp BP BP 02/15/20 15:08 98.5 F 81 18 02/15/20 12:32 98.6 F 90 20 02/15/20 11:32 98.5 F 86 17 02/15/20 11:26 88 97 116/78 02/15/20 08:55 126/77 02/15/20 08:38 02/15/20 08:15 98.4 F 77 21 H 02/15/20 07:56 97.6 F 91 18 BP BP BP Pulse Ox Pulse Ox Pulse Ox 02/15/20 15:08 108/66 98 02/15/20 12:32 132/75 99 02/15/20 11:32 114/71 99 02/15/20 11:26 146/94 H 98 100 02/15/20 08:55 02/15/20 08:38 95 02/15/20 08:15 125/64 96 02/15/20 07:56 129/80 95 Weight Weight 214 lb I&O: 02/14/20 02/15/20 02/16/20 06:59 06:59 06:59 Intake Total 2217 Output Total 1800 600 Balance 417 -600 Result Diagrams: 02/15/20 04:00 Additional Labs: Accuchecks 02/15/20 02/15/20 02/14/20 10:37 05:30 20:11 POC Glucose 140 H 103 H 120 H 02/14/20 16:59 POC Glucose 106 H Labs and MAR reviewed by me EKG Reviewed by me: Yes (Telemetry: Atrial fibrillation) Hospitalist ROS - Review of Systems Cardiovascular: denies: chest pain, palpitations, orthopnea, paroxysmal noc. dyspnea, edema, light headedness Gastrointestinal: denies: nausea, vomiting, abdominal pain, diarrhea, constipation, melena, hematochezia - Medication Medications: Active Medications Generic Name Dose Route Start Last Admin Trade Name Freq PRN Reason Stop Dose Admin Allopurinol 300 mg 02/15/20 09:00 02/15/20 08:54 Allopurinol 300 Mg Tab PO 300 mg DAILY STEPH Administration Amiodarone HCl 400 mg 02/14/20 09:00 02/15/20 15:16 Amiodarone 200 Mg Tab PO 400 mg TID STEPH Administration Amitriptyline HCl 10 mg 02/15/20 09:00 02/15/20 08:55 Amitriptyline Hcl 10 Mg Tab PO 10 mg DAILY STEPH Administration Aspirin 81 mg 02/15/20 09:00 02/15/20 08:54 Aspirin 81 Mg Enteric Coated Tablet PO 81 mg DAILY STEPH Administration Atorvastatin Calcium 10 mg 02/14/20 21:00 02/14/20 21:45 Atorvastatin Calcium 10 Mg Tab PO 10 mg HS STEPH Administration Carvedilol 6.25 mg 02/15/20 08:00 02/15/20 08:55 Carvedilol 6.25 Mg Tab PO 6.25 mg BID-WM STEPH Administration Cholecalciferol 2,000 units 02/15/20 09:00 02/15/20 08:55 Cholecalciferol 1,000 Units (25 Mcg) Tab PO 2,000 units DAILY STEPH Administration Fluoxetine HCl 20 mg 02/15/20 09:00 02/15/20 08:54 Fluoxetine Hcl 20 Mg Cap PO 20 mg DAILY STEPH Administration Furosemide 20 mg 02/14/20 09:00 02/15/20 08:55 Furosemide 20 Mg Tab PO 20 mg DAILY STEPH Administration Pantoprazole Sodium 40 mg 02/15/20 09:00 02/15/20 08:55 Pantoprazole 40 Mg Tab PO 40 mg DAILY STEPH Administration Risperidone 0.5 mg 02/14/20 21:00 02/14/20 21:45 Risperidone 1 Mg Tab PO 0.5 mg HS STEPH Administration - Exam General - other findings: Obese Eye: anicteric sclera ENT: moist mucosa Neck: supple Heart: irregular Respiratory: CTAB Gastrointestinal: soft, non-tender Extremities: no edema Skin: no rashes Psychiatric: normal affect Hosp A/P (1) Type 2 diabetes mellitus Status: Chronic (2) Atrial fibrillation Code(s): I48.91 - UNSPECIFIED ATRIAL FIBRILLATION Status: Chronic (3) GERD (gastroesophageal reflux disease) Code(s): K21.9 - GASTRO-ESOPHAGEAL REFLUX DISEASE WITHOUT ESOPHAGITIS Status: Chronic (4) Hyperlipidemia Code(s): E78.5 - HYPERLIPIDEMIA, UNSPECIFIED Status: Chronic (5) Hypertension Code(s): I10 - ESSENTIAL (PRIMARY) HYPERTENSION Status: Chronic (6) Schizophrenia Code(s): F20.9 - SCHIZOPHRENIA, UNSPECIFIED Status: Chronic - Plan Blood sugars are well controlled. Coreg dose increased today, monitor vital signs and titrate antihypertensives as needed. Metformin being resumed. Schizophrenia stable. Continue statin. Rate controlled atrial fibrillation.
[2020-02-15] MEDS: metFORMIN 500 MG TAB PO SCH (17:13)
[2020-02-15] MEDS: risperiDONE 1 MG TAB PO SCH (20:33)
[2020-02-15] MEDS: Atorvastatin Calcium 10 MG TAB PO SCH (20:33)
[2020-02-15 23:08] LABS: Amphetamine Not Detected (NotDetected); Barbiturates Screen Not Detected (NotDetected); Benzodiazepine Screen Not Detected (NotDetected); Cocaine Metabolite Screen Not Detected (NotDetected); Medtox Control Line Valid? VALID (VALID); Medtox Reader # READER 1; Methadone Not Detected (NotDetected); Methamphetamine Not Detected (NotDetected); Opiate Screen Not Detected (NotDetected); Oxycodone Screen Not Detected (NotDetected); Phencyclidine (PCP) Not Detected (NotDetected); THC/Cannabinoid Screen Not Detected (NotDetected); Tricyclic Screen Detected (NotDetected)
[2020-02-16 04:38] LABS: Anion Gap 12 mmol/L (10-20); BUN (Urea Nitrogen) 26 mg/dL (8.4-25.7); Calc. Creatinine Clearance 59 mL/min (70-130); Calcium 9.2 mg/dL (7.8-10.44); Carbon Dioxide 21 mmol/L (23-31); Chloride 107 mmol/L (98-107); Estimated GFR-MDRD 56; Glucose 150 mg/dL (83-110); Potassium 4.4 mmol/L (3.5-5.1); Sodium 136 mmol/L (136-145)
[2020-02-16] MEDS: Cholecalciferol 1,000 UNITS (25 MCG) TAB PO SCH (09:09)
[2020-02-16] MEDS: Allopurinol 300 MG TAB PO SCH (09:10)
[2020-02-16] MEDS: FLUoxetine HCl 20 MG CAP PO SCH (09:10)
[2020-02-16] MEDS: Amiodarone 200 MG TAB PO SCH ×2 (09:10→20:26)
[2020-02-16] MEDS: Carvedilol 6.25 MG TAB PO SCH ×2 (09:10→16:16)
[2020-02-16] MEDS: Aspirin 81 mg Enteric Coated Tablet PO SCH (09:10)
[2020-02-16] MEDS: Apixaban 5 MG TAB PO SCH ×2 (09:11→20:26)
[2020-02-16] MEDS: Furosemide 20 MG TAB PO SCH (09:11)
[2020-02-16] MEDS: Amitriptyline HCl 10 MG TAB PO SCH (09:11)
[2020-02-16 12:36] VITALS: BMI 37.5
--- NOTE | 2020-02-16 14:16 | PDOC.HOSPP ---
- Subjective Encounter Date: 02/16/20 Encounter Time: 08:20 Subjective: Patient seen for follow-up regarding diabetes type 2. Denies chest pain or shortness of breath. - Objective Vital Signs & Weight: Vital Signs (12 hours) Temp Pulse Pulse Pulse Resp BP BP 02/16/20 11:47 98.2 F 73 20 02/16/20 09:10 126/77 02/16/20 08:45 86 81 170/93 H 02/16/20 07:35 97.7 F 77 20 02/16/20 03:27 98.5 F 69 16 BP BP Pulse Ox Pulse Ox Pulse Ox 02/16/20 11:47 113/74 94 L 02/16/20 09:10 02/16/20 08:45 133/71 96 94 L 02/16/20 07:35 153/75 H 97 02/16/20 03:27 109/70 100 Weight Weight 218 lb 8 oz I&O: 02/15/20 02/16/20 02/17/20 06:59 06:59 06:59 Intake Total 2217 1260 Output Total 1800 950 Balance 417 310 Result Diagrams: 02/16/20 03:54 Additional Labs: Accuchecks 02/16/20 02/16/20 02/15/20 11:12 06:14 20:44 POC Glucose 110 H 110 H 102 H 02/15/20 16:49 POC Glucose 95 I reviewed patient's labs and MAR EKG Reviewed by me: Yes (Guillermo beatty on telemetry) Hospitalist ROS - Review of Systems Cardiovascular: denies: chest pain, palpitations, orthopnea, paroxysmal noc. dyspnea, edema, light headedness Gastrointestinal: denies: nausea, vomiting, abdominal pain, diarrhea, constipation, melena, hematochezia - Medication Medications: Active Medications Generic Name Dose Route Start Last Admin Trade Name Freq PRN Reason Stop Dose Admin Allopurinol 300 mg 02/15/20 09:00 02/16/20 09:10 Allopurinol 300 Mg Tab PO 300 mg DAILY STEPH Administration Amiodarone HCl 400 mg 02/16/20 09:00 02/16/20 09:10 Amiodarone 200 Mg Tab PO 400 mg BID STEPH Administration Amitriptyline HCl 10 mg 02/15/20 09:00 02/16/20 09:11 Amitriptyline Hcl 10 Mg Tab PO 10 mg DAILY STEPH Administration Apixaban 5 mg 02/16/20 09:00 02/16/20 09:11 Apixaban 5 Mg Tab PO 5 mg BID STEPH Administration Aspirin 81 mg 02/15/20 09:00 02/16/20 09:10 Aspirin 81 Mg Enteric Coated Tablet PO 81 mg DAILY STEPH Administration Atorvastatin Calcium 10 mg 02/14/20 21:00 02/15/20 20:33 Atorvastatin Calcium 10 Mg Tab PO 10 mg HS STEPH Administration Carvedilol 6.25 mg 02/15/20 08:00 02/16/20 09:10 Carvedilol 6.25 Mg Tab PO 6.25 mg BID-WM STEPH Administration Cholecalciferol 2,000 units 02/15/20 09:00 02/16/20 09:09 Cholecalciferol 1,000 Units (25 Mcg) Tab PO 2,000 units DAILY STEPH Administration Fluoxetine HCl 20 mg 02/15/20 09:00 02/16/20 09:10 Fluoxetine Hcl 20 Mg Cap PO 20 mg DAILY STEPH Administration Furosemide 20 mg 02/14/20 09:00 02/16/20 09:11 Furosemide 20 Mg Tab PO 20 mg DAILY STEPH Administration Metformin HCl 500 mg 02/15/20 17:00 02/15/20 17:13 Metformin 500 Mg Tab PO 500 mg QPM-WM STEPH Administration Pantoprazole Sodium 40 mg 02/15/20 09:00 02/16/20 09:10 Pantoprazole 40 Mg Tab PO 40 mg DAILY STEPH Administration Risperidone 0.5 mg 02/14/20 21:00 02/15/20 20:33 Risperidone 1 Mg Tab PO 0.5 mg HS STEPH Administration Sacubitril/Valsartan 0.5 tab 02/16/20 09:00 02/16/20 09:11 Sacubitril 24mg/Valsartan 26mg Tab PO 0.5 tab BID STEPH Administration - Exam General Appearance: awake alert General - other findings: Obese Eye: anicteric sclera ENT: no oropharyngeal lesions Neck: supple Heart: irregular Respiratory: CTAB Gastrointestinal: soft, non-tender Extremities: 1+ LE edema Skin: no rashes Psychiatric: normal affect, normal behavior Hosp A/P (1) Type 2 diabetes mellitus Status: Chronic (2) Atrial fibrillation Code(s): I48.91 - UNSPECIFIED ATRIAL FIBRILLATION Status: Chronic (3) GERD (gastroesophageal reflux disease) Code(s): K21.9 - GASTRO-ESOPHAGEAL REFLUX DISEASE WITHOUT ESOPHAGITIS Status: Chronic (4) Hyperlipidemia Code(s): E78.5 - HYPERLIPIDEMIA, UNSPECIFIED Status: Chronic (5) Hypertension Code(s): I10 - ESSENTIAL (PRIMARY) HYPERTENSION Status: Chronic (6) Schizophrenia Code(s): F20.9 - SCHIZOPHRENIA, UNSPECIFIED Status: Chronic - Plan Diabetes mellitus controlled and stable. Tension controlled. Schizophrenia stable. Continue statin. Rate controlled atrial fibrillation.
[2020-02-16] MEDS: metFORMIN 500 MG TAB PO SCH (16:16)
[2020-02-16] MEDS: Atorvastatin Calcium 10 MG TAB PO SCH (20:26)
[2020-02-16] MEDS: risperiDONE 1 MG TAB PO SCH (20:26)
[2020-02-17 04:52] LABS: Anion Gap 15 mmol/L (10-20); BUN (Urea Nitrogen) 28 mg/dL (8.4-25.7); Calc. Creatinine Clearance 54 mL/min (70-130); Calcium 8.9 mg/dL (7.8-10.44); Carbon Dioxide 21 mmol/L (23-31); Chloride 107 mmol/L (98-107); Estimated GFR-MDRD 50; Glucose 95 mg/dL (83-110); Potassium 4.3 mmol/L (3.5-5.1); Sodium 139 mmol/L (136-145)
[2020-02-17] MEDS: Apixaban 5 MG TAB PO SCH (09:13)
[2020-02-17] MEDS: FLUoxetine HCl 20 MG CAP PO SCH (09:13)
[2020-02-17] MEDS: Allopurinol 300 MG TAB PO SCH (09:13)
[2020-02-17] MEDS: Aspirin 81 mg Enteric Coated Tablet PO SCH (09:13)
[2020-02-17] MEDS: Cholecalciferol 1,000 UNITS (25 MCG) TAB PO SCH (09:13)
[2020-02-17] MEDS: Carvedilol 6.25 MG TAB PO SCH ×2 (09:14→18:01)
[2020-02-17] MEDS: Furosemide 20 MG TAB PO SCH (09:14)
[2020-02-17] MEDS: Amiodarone 200 MG TAB PO SCH (09:14)
[2020-02-17] MEDS: Amitriptyline HCl 10 MG TAB PO SCH (09:14)
[2020-02-17 16:00] VITALS: BP 131/65; TEMP 98.2
[2020-02-17] MEDS: metFORMIN 500 MG TAB PO SCH (18:01)
--- NOTE | 2020-02-19 12:02 | EKG ---
Test Reason : Blood Pressure : / mmHG Vent. Rate : 082 BPM Atrial Rate : 082 BPM P-R Int : 210 ms QRS Dur : 108 ms QT Int : 418 ms P-R-T Axes : 048 021 070 degrees QTc Int : 488 ms Sinus rhythm with 1st degree A-V block with occasional Premature ventricular complexes Possible Left atrial enlargement Prolonged QT Abnormal ECG When compared with ECG of 09-FEB-2020 15:33, (Unconfirmed) Premature ventricular complexes are now Present PA interval has increased Confirmed by BAR VIDAL (2) on 02/19/2020 12:01:44 PM Referred By: YOUNG Confirmed By:BAR VIDAL
--- NOTE | 2020-02-20 07:49 | DIS ---
DATE OF ADMISSION: 02/14/2020 DATE OF DISCHARGE: 02/17/2020 DISCHARGE DIAGNOSES: 1. Severe nonischemic cardiomyopathy with ejection fraction of 15% to 20%. 2. Atrial fibrillation with rapid ventricular response, converted with p.o. amiodarone (precatheterization EKG on February 09, 2020 did show sinus rhythm). 3. Mild coronary artery disease. 4. Hypercholesterolemia. 5. Hypertension. 6. Smoker. 7. Diabetes mellitus. 8. Chronic kidney disease. 9. Schizophrenia. DISCHARGE DISPOSITION: The patient will be seen in 2 weeks with complete metabolic panel and decision about continuing Entresto. In three months, he will need to have repeat echo. HOSPITAL COURSE: Mr. Lee had been previously hospitalized, but signed out against medical advice. He did have an abnormal Cardiolite and it was recommended that he undergo catheterization. He came to the office and agreed to proceed with catheterization. This revealed severe global hypokinesis with ejection fraction of 15% to 20%. There was a 10% proximal LAD, 40% mid LAD, 40% proximal circumflex. Very large ramus was normal and a small right coronary artery was normal. He continued to have atrial fibrillation with rapid ventricular response with heart rates in the 100-120s. He was admitted for further treatment of this. He was started on carvedilol and loaded with p.o. amiodarone. His amlodipine 10 mg daily was discontinued. After two days of loading with amiodarone, he converted spontaneously to sinus rhythm. He also was started on low-dose Entresto one half of b.i.d. and his creatinine will need to be monitored since he does have mild chronic kidney disease. He was also started on Eliquis while in the hospital. Mr. Lee was fitted with a LifeVest prior to discharge. DISCHARGE MEDICATIONS: 1. Allopurinol 300 mg daily. 2. Amiodarone 400 mg b.i.d. x2 weeks, 200 mg b.i.d. x2 weeks, and then 200 mg daily. 3. Amitriptyline 50 mg at bedtime. 4. Eliquis 5 mg b.i.d. 5. Aspirin 81 daily. 6. Atorvastatin 10 mg daily. 7. Carvedilol 6.25 b.i.d. 8. Vitamin D3 of daily. 9. Prozac 20 mg daily. 10. Furosemide 20 mg q.a.m. 11. Metformin 500 mg at bedtime. 12. Toshiao one half tablet b.i.d. Job ID: [id number]
== END 2020-02-17 19:00 | disposition home or self-care (01) | DRG 287 ==
LOC: SDC 06:00 → INTOOBSV 13:36 → 2NO 13:36 → OBSVTOIN 13:36
PROVIDERS: ADMIT Internal Medicine Cardiovascular Disease; ATTEND Internal Medicine Cardiovascular Disease
PROC: B2111ZZ Fluoroscopy of Multiple Coronary Arteries using Low Osmolar Contrast (ICD-10-PCS; principal; 2020-02-14)
PROC: B2151ZZ Fluoroscopy of Left Heart using Low Osmolar Contrast (ICD-10-PCS; 2020-02-14)
PROC: 4A023N7 Measurement of Cardiac Sampling and Pressure, Left Heart, Percutaneous Approach (ICD-10-PCS; 2020-02-14)
DX: I25.10 Atherosclerotic heart disease of native coronary artery without angina pectoris (principal); I48.91 Unspecified atrial fibrillation; F17.210 Nicotine dependence, cigarettes, uncomplicated; K21.9 Gastro-esophageal reflux disease without esophagitis; M10.9 Gout, unspecified; E78.5 Hyperlipidemia, unspecified; F20.9 Schizophrenia, unspecified; N18.30 Chronic kidney disease, stage 3 unspecified; E11.22 Type 2 diabetes mellitus with diabetic chronic kidney disease; I12.9 Hypertensive chronic kidney disease with stage 1 through stage 4 chronic kidney disease, or unspecified chronic kidney disease; I42.8 Other cardiomyopathies; Z20.828 Contact with and (suspected) exposure to other viral communicable diseases; Z90.49 Acquired absence of other specified parts of digestive tract
CPT/HCPCS: 36415; 36416; 80048; 80061; 80306; 83880; 85347; 90471; 90662; 90732; 93005; 93010; 93458; 93798; 94760; 99152; G0008; G0009; G0378; J1644; J2001; J2250; J2720; J3010

== ENCOUNTER 2020-05-19 19:53 | Inpatient (IN) | payer MEDICARE ==
[~2020-05-19 19:53] MED LIST: Rocuronium Bromide 10 MG/ML (10ML VIAL) ONE
[2020-05-19] MEDS ORDERED: Dexamethasone 4 mg/ml Vial ONE (20:23)
[2020-05-19] MEDS ORDERED: Magnesium 2 GM/50 ML BAG (IN WATER) ONE (20:42)
[2020-05-19] MEDS ORDERED: Albuterol 200 PUFF (6.7GM INHALER) ONE (20:42)
[2020-05-19 20:58] LABS: INR-International Normal Ratio 1.4; Prothrombin Time 17.8 sec (12.0-14.7)
--- NOTE | 2020-05-19 21:25 | CT ---
CT arteriogram chest with IV contrast and 3-D imaging HISTORY: Chest pain. Dyspnea. COVID pneumonia. FINDINGS: There is good contrast opacification pulmonary arteries. Thoracic aorta not yet opacified. Dense, widespread ill-defined areas of groundglass infiltrate and interstitial thickening with crazy paving appearance have progressed significantly since the prior exam from 05/05/2020. Small amount of bilateral pleural fluid, right greater than left. No pneumothorax. Left renal cyst partially visualized. Degenerative changes of the thoracic spine and right shoulder. IMPRESSION : No evidence of pulmonary embolus. Severe CT abnormalities of multifocal COVID pneumonia.
[2020-05-19 21:31] LABS: CKMB 1.4 ng/mL (0-6.6)
[2020-05-19 21:43] LABS: SARS-CoV-2 NAA Rapid Test Not Detected (NotDetected)
[2020-05-19] MEDS ORDERED: Guaifenesin DM 100-10/5 ML UDCUP PO PRN (22:50)
[2020-05-19] MEDS ORDERED: Calcium Carbonate 500 MG ChewTAB PO PRN (22:50)
[2020-05-19] MEDS ORDERED: Acetaminophen 650 MG Suppository PR PRN (22:50)
[2020-05-19] MEDS ORDERED: Acetaminophen 325 MG TAB PO PRN (22:50)
--- NOTE | 2020-05-19 23:06 | PDOC.HHP ---
Hospitalist HPI - History of Present Illness confusion History of Present Illness: patient is a very poor historian and is not fully aware of his pmhx. Case of an 75y/o male with a pmhx of atrial fibrillation, dementia, nonischemic cardiomyopathy with an ef of 10-15%, DM, hld and ckd who presents to the [facility] department as a transfer from [place] for altered mental status and worsening multifocal pneumonia. patient with multiple recent admissions, one for heart failure and second for possible covid 19/pneumonia. Patient denies any fever but does endorse chills, and difficulty breathing, states that he just has not been feeling well since discharge. Patient does refer some productive cough. Denies any nausea vomiting or diarrhea. Patient was seen yesterday at the ED for same chief complain of altered mental status and was diagnosed with a urinary tract infection, started antibiotics and sent home. apparently today family found him more confused than yesterday complaining of dyspnea with a rr per ems of 40 Hospitalist ROS - Review of Systems All other systems reviewed; all pertinent +/- noted in HPI/Subj Hospitalist History - Past Medical History Psych: reports: Schizophrenia Rheumatologic: reports: Gout Endocrine: reports: Diabetes - Past Surgical History Past Surgical History: reports: Appendectomy - Family History Family History: reports: no pertinent history - Social History Alcohol: reports: None Drugs: reports: none - Exam General Appearance: NAD, awake alert Eye: PERRL, anicteric sclera ENT: normocephalic atraumatic, no oropharyngeal lesions Neck: supple, symmetric, no JVD Heart: RRR, no murmur, no gallops Respiratory: CTAB, no wheezes, no rales Gastrointestinal: soft, non-tender, non-distended Extremities: no cyanosis, no clubbing, no edema Skin: normal turgor, no lesions, no rashes Neurological: cranial nerve grossly intact, normal sensation to touch, no weakness Musculoskeletal: normal tone, normal strength, no muscle wasting Psychiatric: normal affect, normal behavior, oriented to person, oriented to place Hospitalist Results - Labs Lab results: CK-MB (CK-2) 1.4 ng/mL (0-6.6) 05/19/20 20:40 Troponin I 0.267 ng/mL (< 0.028) H 05/19/20 20:40 Hospitalist H&P A/P - Problem (1) Sepsis Code(s): A41.9 - SEPSIS, UNSPECIFIED ORGANISM Status: Acute (2) Pneumonia Code(s): J18.9 - PNEUMONIA, UNSPECIFIED ORGANISM Status: Acute (3) Dementia Code(s): F03.90 - UNSPECIFIED DEMENTIA WITHOUT BEHAVIORAL DISTURBANCE Status: Acute Qualifiers: (4) Nonischemic cardiomyopathy Code(s): I42.8 - OTHER CARDIOMYOPATHIES Status: Acute (5) Atrial fibrillation Code(s): I48.91 - UNSPECIFIED ATRIAL FIBRILLATION Status: Chronic Qualifiers: (6) Hyperlipidemia Code(s): E78.5 - HYPERLIPIDEMIA, UNSPECIFIED Status: Chronic Qualifiers: (7) Hypertension Code(s): I10 - ESSENTIAL (PRIMARY) HYPERTENSION Status: Chronic Qualifiers: (8) Schizophrenia Code(s): F20.9 - SCHIZOPHRENIA, UNSPECIFIED Status: Chronic (9) Type 2 diabetes mellitus Status: Chronic (10) Altered mental status Code(s): R41.82 - ALTERED MENTAL STATUS, UNSPECIFIED Status: Acute - Plan Plan: 75y/o male with the stated pmhx who present with worsening atypical pneumonia with sepsis atypical pneumonia /sepsis - multiple cts showing worsening atypical pneumonia, concerning for covid 19 - multiple negative covid 19 test - will start cefepime + vanc - will start isolation precautions - id consult - modified sepsis bundles started due to low ef 10-15% - f/u cultures - f/u LA altered mental state - unclear etiology, likely secondary to infection - multiple visit for same chief complained, had a ct on 05/18/19 which was read as possible acute vs subacute infarct. this apparently was not address and patient was discharged w dx of uti. - will get head MRI to address above - already on secondary prevention for cva with asa/xarelto, will increase statin to high intensity - continue neurologic work up if mri positive atrial fibrillation - continue rate/rythme control - continue full AC - cardiac monitoring DM acc+SS cardiomyopathy / htn - continue home meds when able
[2020-05-20] MEDS ORDERED: Sodium Chloride 0.9% 500 ML IV SCH (00:15)
[2020-05-20 00:17] LABS: Troponin I 0.293 ng/mL (< 0.028)
[2020-05-20 02:18] LABS: Lactic Acid 1.7 mmol/L (0.5-2.2)
[2020-05-20] MEDS ORDERED: Vancomycin HCl 1.75 GM in Sodium Chloride 0.9% 500 ML IVPB SCH (03:00)
[2020-05-20 03:16] LABS: Troponin I 0.245 ng/mL (< 0.028)
[2020-05-20] MEDS: Cefepime 2 GM in Sodium Chloride 0.9% 100 ML IVPB SCH ×2 (06:07→17:44)
[2020-05-20 06:23] LABS: ALT (SGPT) 52 U/L (8-55); AST (SGOT) 63 U/L (5-34); Alkaline Phosphatase 137 U/L (40-110); Anion Gap 15 mmol/L (10-20); BUN (Urea Nitrogen) 41 mg/dL (8.4-25.7); Bilirubin, Total 0.9 mg/dL (0.2-1.2); Calc. Creatinine Clearance 52 mL/min (70-130); Calcium 8.6 mg/dL (7.8-10.44); Carbon Dioxide 16 mmol/L (23-31); Chloride 108 mmol/L (98-107); Globulin 3.7 g/dL (2.4-3.5); Glucose 130 mg/dL (83-110); Potassium 4.1 mmol/L (3.5-5.1); Protein, Total 6.7 g/dL (5.8-8.1); Sodium 135 mmol/L (136-145)
[2020-05-20 06:49] LABS: Band 1 % (5-11); Hemoglobin 10.9 g/dL (14.0-18.0); Hypochromia SLIGHT = 6-15 cells (100X) (0-5/hpf); Lymphocytes 11 % (21-51); MDiff Complete? YES; Mean Corpuscular HGB CONC 32.7 g/dL (32.0-36.0); Mean Corpuscular Hemoglobin 27.8 pg (27.0-31.0); Mean Platelet Volume 8.3 fL (7.4-10.4); Monocytes 4 % (0-10); Neutrophil 84 % (42-75); Platelet Count 269 thou/uL (130-400); Platelet Morphology Comment Appears Decreased; RBC Distribution Width 14.1 % (11.5-14.5); White Blood Cell (WBC) Count 10.6 thou/uL (4.8-10.8)
[2020-05-20] MEDS: Aspirin 81 mg Enteric Coated Tablet PO SCH (08:50)
[2020-05-20] MEDS: Carvedilol 6.25 MG TAB PO SCH ×2 (08:50→17:43)
[2020-05-20] MEDS: Amiodarone 200 MG TAB PO SCH ×2 (08:50→20:32)
[2020-05-20] MEDS: Apixaban 5 MG TAB PO SCH ×2 (08:50→20:32)
[2020-05-20] MEDS: Allopurinol 300 MG TAB PO SCH (08:50)
--- NOTE | 2020-05-20 11:09 | MRI ---
MRI of thebrain: 05/20/2020 COMPARISON:None available HISTORY:Generalized weakness, severe pneumonia TECHNIQUE: Multiplanar multisequence MR imaging of thebrain without contrast Findings:The visualized paranasal sinuses and mastoid air cells appear unremarkable. This study is si gnificantly limited by head motion artifact. No evidence for acute infarction or intracranial hemorrhage. No midline shift or mass effect. No ventricular enlargement. IMPRESSION:Motion limited exam demonstrating no evidence for acute infarction or intracranial hemorrh age.
--- NOTE | 2020-05-20 15:10 | PDOC.HOSPP ---
- Subjective Encounter Date: 05/20/20 Encounter Time: 11:00 Subjective: feels better, is not oriented but not in distress no pain or palp - Objective Vital Signs & Weight: Vital Signs (12 hours) Temp Pulse Resp BP Pulse Ox 05/20/20 11:56 96 F L 89 32 H 127/80 95 05/20/20 08:20 97.4 F L 87 16 135/82 94 L 05/20/20 03:35 98.2 F 86 32 H 141/95 H 97 Weight Weight 195 lb 5 oz I&O: 05/19/20 05/20/20 05/21/20 06:59 06:59 06:59 Intake Total 880 240 Output Total 375 Balance 880 -135 Result Diagrams: 05/20/20 05:33 05/20/20 05:33 Hospitalist ROS - Medication Medications: Active Medications Generic Name Dose Route Start Last Admin Trade Name Freq PRN Reason Stop Dose Admin Allopurinol 300 mg 05/20/20 09:00 05/20/20 08:50 Allopurinol 300 Mg Tab PO 300 mg DAILY STEPH Administration Amiodarone HCl 400 mg 05/20/20 09:00 05/20/20 08:50 Amiodarone 200 Mg Tab PO 400 mg BID STEPH Administration Apixaban 5 mg 05/20/20 09:00 05/20/20 08:50 Apixaban 5 Mg Tab PO 5 mg BID STEPH Administration Aspirin 81 mg 05/20/20 09:00 05/20/20 08:50 Aspirin 81 Mg Enteric Coated Tablet PO 81 mg DAILY STEPH Administration Carvedilol 6.25 mg 05/20/20 08:00 05/20/20 08:50 Carvedilol 6.25 Mg Tab PO 6.25 mg BID-WM STEPH Administration Cefepime HCl 2 gm/ Sodium 100 mls @ 200 mls/hr 05/20/20 06:00 05/20/20 06:07 Chloride IVPB 100 mls 0600,1800 STEPH Administration Sacubitril/Valsartan 0.5 tab 05/20/20 09:00 05/20/20 08:50 Sacubitril 24mg/Valsartan 26mg Tab PO 0.5 tab BID STEPH Administration Sodium Chloride 10 ml 05/20/20 09:00 05/20/20 08:51 Flush - Normal Saline 10 Ml Syringe IVF 10 ml Q12HR STEPH Administration - Exam General Appearance: awake alert Eye: PERRL, anicteric sclera ENT: no oropharyngeal lesions, moist mucosa Neck: supple, JVD Heart: RRR, no murmur Respiratory: no wheezes, rales, rhonchi Gastrointestinal: soft, non-tender, non-distended, normal bowel sounds Extremities: no cyanosis, no edema Neurological: cranial nerve grossly intact, no focal deficits Hosp A/P (1) Acute on chronic systolic (congestive) heart failure Code(s): I50.23 - ACUTE ON CHRONIC SYSTOLIC (CONGESTIVE) HEART FAILURE Status: Acute (2) Pneumonia Code(s): J18.9 - PNEUMONIA, UNSPECIFIED ORGANISM Status: Suspected Qualifiers: Pneumonia type: due to unspecified organism (3) Nonischemic cardiomyopathy Code(s): I42.8 - OTHER CARDIOMYOPATHIES Status: Chronic (4) Atrial fibrillation Code(s): I48.91 - UNSPECIFIED ATRIAL FIBRILLATION Status: Chronic Qualifiers: Atrial fibrillation type: paroxysmal (5) GERD (gastroesophageal reflux disease) Code(s): K21.9 - GASTRO-ESOPHAGEAL REFLUX DISEASE WITHOUT ESOPHAGITIS Status: Chronic Qualifiers: Esophagitis presence: without esophagitis Qualified Code(s): K21.9 - Ga stro-esophageal reflux disease without esophagitis (6) Hyperlipidemia Code(s): E78.5 - HYPERLIPIDEMIA, UNSPECIFIED Status: Chronic Qualifiers: (7) Hypertension Code(s): I10 - ESSENTIAL (PRIMARY) HYPERTENSION Status: Chronic Qualifiers: (8) Schizophrenia Code(s): F20.9 - SCHIZOPHRENIA, UNSPECIFIED Status: Chronic Qualifiers: Schizophrenia type: unspecified Qualified Code(s): F20.9 - Schizophrenia, unspecified (9) Type 2 diabetes mellitus Status: Chronic Qualifiers: Diabetes mellitus terminal gauger insulin use: without terminal gauger use - Plan start lasix at 6am and 2pm, has prior ef of 15%, likely is noncomplaint? has nearly 6 covid pcr testing done all of which have been -ve. continue amiodarone, coreg, eliquis, asp, lipitor, entresto and cefepime has chronic lung changes with current volume overload is not oriented with underlying psychiatric disorder, please obtain home med list for it hemostable, mobilize as tolerated, encourage oral intake, likely will need home O2 await diuresis to see if he gets better with exertional spo2 levels.
[2020-05-20] MEDS ORDERED: Furosemide 40 MG/4 ML VIAL SLOW IVP SCH (15:15)
[2020-05-20] MEDS: Atorvastatin Calcium 40 MG TAB PO SCH (20:31)
[2020-05-20] MEDS: Amitriptyline HCl 25 MG TAB PO SCH (20:32)
[2020-05-20] MEDS ORDERED: Atorvastatin Calcium 10 MG TAB PO SCH (21:00)
--- NOTE | 2020-05-20 22:43 | CON ---
DATE OF CONSULTATION: 05/20/2020 REASON: Atypical pneumonia. HISTORY OF PRESENT ILLNESS: A 75-year-old who has a history of type 2 diabetes, hypertension, gout, and schizophrenia and chronic smoking, who was initially admitted in December with acute onset of atrial fibrillation, congestive heart failure. The patient had his stress test, which showed global hypokinesis and a fixed myocardial perfusion defect, anterior septal wall, and EF of 23%, confirmed with an echocardiogram. He was scheduled for heart catheterization but left against medical advice, next admission was in January. He was again diagnosed with severe nonischemic cardiomyopathy with EF 15-20%, atrial fibrillation. He was treated with amiodarone. He did have this time coronary angiogram, which showed [id number] coronary disease. He was supposed to be fitted with a LifeVest, but that somehow never happened. After that, then he had multiple evaluations in the emergency room starting on April 28, basically he was having palpitations, coughing, but not much, and had some chest pain, which had resolved by the time he arrived in the emergency room. So, he was felt to be asymptomatic and he was discharged home. He came in again on May 01 with decreased appetite, one episode of vomiting, and also a change in his sense of smell. This progressively developed worsening coughing and shortness of breath, ended up admitted eventually yesterday, and he had a CT angio, which showed diffuse ground-glass opacities consistent with COVID- 19, although he has had multiple negative RT-PCR tests. In the phase of all the other findings, it is very likely that this represents COVID-19. So, the patient currently is somewhat delusional, confused. He is awake, and he denies any headaches. He is not coughing much, a little bit of tachypnea. No abdominal pain or chest pain. No genitourinary symptoms. No joint symptoms. Seems like there is some element of hallucinations going on, either auditory or visual or both, does not know where he is. PAST MEDICAL HISTORY: Includes schizophrenia, nonischemic cardiomyopathy, atrial fibrillation, CHF with EF in the 15% range, type 2 diabetes, CKD, gout. SURGICAL HISTORY: Appendectomy. FAMILY HISTORY: Not pertinent. SOCIAL HISTORY: No alcoholic beverage use. Former smoker. No drug use. ALLERGIES: NO KNOWN DRUG ALLERGIES. CURRENT MEDICATIONS: 1. Allopurinol. 2. Amiodarone. 3. Eliquis. 4. Cefepime. 5. Entresto. PHYSICAL EXAMINATION: VITAL SIGNS: The patient has been afebrile since admission. BP 116/71, heart rate 73, respiratory rate 32, saturating 98 on 2 L nasal cannula, actually he was not wearing properly the device when I was examining him, had to reposition it. SKIN: Shows peripheral IV access. He is voiding in the urinal. No lymphadenopathy. HEENT: Ocular movements are conjugate. Sclerae white. Oral cavity normal. Some jugular vein distention. LUNGS: With inspiratory crackles mostly on the left base but also on the right. No wheezing. HEART: S1, S2. Regular rate without murmurs. ABDOMEN: Soft, not distended or tender. No ascites. GENITOURINARY: No bladder distention. EXTREMITIES: No edema. Pulses 1+ in dorsalis pedis. Moves extremities equally. He is awake, knows his name, but could not tell me where he was and had some delusional thinking process. LABORATORY DATA: White cell count is 10.6, hemoglobin 10.9, platelets 269 with 84% neutrophils. INR 1.4. Creatinine 1.52. His prior creatinines peaked at 2.28, so this is actually little bit better than before. AST 63, ALT 52, alkaline phosphatase 137, albumin 3.0, BNP was 3100. So thus far, he has had 4 SARS-CoV-2 negative, RT-PCR tests starting on May 02, then May 05, , and , and he has had one SARS-CoV antibody test negative on May 06. He had a brain MRI done today, which showed no evidence of acute infarction or hemorrhage noted. ASSESSMENT: Schizophrenia, nonischemic cardiomyopathy, type 2 diabetes, chronic kidney disease, and change in sense of smell with anorexia, diffuse bilateral ground-glass opacities, and multiple negative SARS-CoV RT-PCR tests. DISCUSSION: Despite negative SARS-CoV-2 RT-PCR tests, the diagnosis of COVID-19 is very likely. The presence of anosmia in the setting of diffuse ground-glass opacities and imaging studies of the lungs are highly specific for COVID-19 in the face of the current pandemic. So, I am going to go ahead and repeat the antibody test. I think he has had it all along from the beginning of the month, so he is not eligible for remdesivir, and he is at very high risk for further deterioration, so I am going to go ahead and get him started on Decadron, and I do not think any other intervention would be applicable at this time. Discontinue antimicrobial therapy. Job ID: [id number] MTDD
[2020-05-21] MEDS ORDERED: Vancomycin HCl 1.25 GM in Sodium Chloride 0.9% 250 ML 250 ML IVPB SCH (03:00)
[2020-05-21] MEDS: Furosemide 40 MG/4 ML VIAL SLOW IVP SCH ×2 (06:07→12:43)
[2020-05-21] MEDS: Dexamethasone 4 mg/ml Vial IVPB SCH (08:18)
[2020-05-21] MEDS: Amiodarone 200 MG TAB PO SCH (08:18)
[2020-05-21] MEDS: Aspirin 81 mg Enteric Coated Tablet PO SCH (08:18)
[2020-05-21] MEDS: Apixaban 5 MG TAB PO SCH ×2 (08:18→19:38)
[2020-05-21] MEDS: Allopurinol 300 MG TAB PO SCH (08:18)
[2020-05-21] MEDS: Carvedilol 6.25 MG TAB PO SCH ×2 (08:18→16:27)
--- NOTE | 2020-05-21 14:16 | PDOC.HOSPP ---
- Subjective Encounter Date: 05/21/20 Encounter Time: 11:30 Subjective: lethargic a bit this am, no complaints, he says he is feeling better not fully oriented and likely his baseline? with h/o schizophrenia - Objective Vital Signs & Weight: Vital Signs (12 hours) Temp Pulse Resp BP Pulse Ox 05/21/20 12:00 97.8 F 68 24 H 128/70 98 05/21/20 08:42 97.0 F L 91 24 H 124/72 97 05/21/20 05:08 99 05/21/20 03:55 97.7 F 75 40 H 119/69 93 L Weight Admit Weight 195 lb 3.408 oz Weight 185 lb 6 oz I&O: 05/20/20 05/21/20 05/22/20 06:59 06:59 06:59 Intake Total 880 740 Output Total 1325 Balance 880 -585 Result Diagrams: 05/20/20 05:33 05/20/20 05:33 Hospitalist ROS - Medication Medications: Active Medications Generic Name Dose Route Start Last Admin Trade Name Sixtoq PRN Reason Stop Dose Admin Allopurinol 300 mg 05/20/20 09:00 05/21/20 08:18 Allopurinol 300 Mg Tab PO 300 mg DAILY STEPH Administration Amiodarone HCl 400 mg 05/20/20 09:00 05/21/20 08:18 Amiodarone 200 Mg Tab PO 400 mg BID STEPH Administration Amitriptyline HCl 50 mg 05/20/20 21:00 05/20/20 20:32 Amitriptyline Hcl 25 Mg Tab PO 50 mg HS STEPH Administration Apixaban 5 mg 05/20/20 09:00 05/21/20 08:18 Apixaban 5 Mg Tab PO 5 mg BID STEPH Administration Aspirin 81 mg 05/20/20 09:00 05/21/20 08:18 Aspirin 81 Mg Enteric Coated Tablet PO 81 mg DAILY STEPH Administration Atorvastatin Calcium 40 mg 05/20/20 21:00 05/20/20 20:31 Atorvastatin Calcium 40 Mg Tab PO 40 mg HS STEPH Administration Carvedilol 6.25 mg 05/20/20 08:00 05/21/20 08:18 Carvedilol 6.25 Mg Tab PO 6.25 mg BID-WM STEPH Administration Dexamethasone 6 mg 05/21/20 09:00 05/21/20 08:18 Dexamethasone 4 Mg/Ml Vial IVPB 6 mg DAILY STEPH Administration Furosemide 40 mg 05/21/20 06:00 05/21/20 12:43 Furosemide 40 Mg/4 Ml Vial SLOW IVP 40 mg 0600,1400 STEPH Administration Sacubitril/Valsartan 0.5 tab 05/20/20 09:00 05/21/20 09:51 Sacubitril 24mg/Valsartan 26mg Tab PO 0.5 tab BID STEPH Administration Sodium Chloride 10 ml 05/20/20 09:00 05/21/20 08:19 Flush - Normal Saline 10 Ml Syringe IVF 10 ml Q12HR STEPH Administration Sodium Chloride 10 ml 05/20/20 02:30 05/20/20 17:44 Flush - Normal Saline 10 Ml Syringe IVF 10 ml PRN PRN Administration Saline Flush - Exam General Appearance: ill appearing Eye: PERRL, anicteric sclera ENT: no oropharyngeal lesions, moist mucosa Neck: supple, no JVD Heart: RRR, no murmur Respiratory: no wheezes, rales, rhonchi Gastrointestinal: soft, non-tender, non-distended, normal bowel sounds Extremities: no cyanosis, no edema Neurological: cranial nerve grossly intact, no focal deficits Hosp A/P (1) Acute on chronic systolic (congestive) heart failure Code(s): I50.23 - ACUTE ON CHRONIC SYSTOLIC (CONGESTIVE) HEART FAILURE Status: Acute (2) Pneumonia Code(s): J18.9 - PNEUMONIA, UNSPECIFIED ORGANISM Status: Suspected Qualifiers: Pneumonia type: due to unspecified organism (3) Nonischemic cardiomyopathy Code(s): I42.8 - OTHER CARDIOMYOPATHIES Status: Chronic (4) Atrial fibrillation Code(s): I48.91 - UNSPECIFIED ATRIAL FIBRILLATION Status: Chronic Qualifiers: Atrial fibrillation type: paroxysmal (5) GERD (gastroesophageal reflux disease) Code(s): K21.9 - GASTRO-ESOPHAGEAL REFLUX DISEASE WITHOUT ESOPHAGITIS Status: Chronic Qualifiers: Esophagitis presence: without esophagitis Qualified Code(s): K21.9 - Gastro-esophageal reflux disease without esophagitis (6) Hyperlipidemia Code(s): E78.5 - HYPERLIPIDEMIA, UNSPECIFIED Status: Chronic Qualifiers: (7) Hypertension Code(s): I10 - ESSENTIAL (PRIMARY) HYPERTENSION Status: Chronic Qualifiers: (8) Schizophrenia Code(s): F20.9 - SCHIZOPHRENIA, UNSPECIFIED Status: Chronic Qualifiers: Schizophrenia type: unspecified Qualified Code(s): F20.9 - Schizophrenia, unspecified (9) Type 2 diabetes mellitus Status: Chronic Qualifiers: Diabetes mellitus detention insulin use: without tank terminal gauger use - Plan on lasix at 6am and 2pm, has prior ef of 15%, likely is noncomplaint? has nearly 6 covid pcr testing done all of which have been -ve, is presumed to have had covid with pulm infiltrates/fibrosis, on dexamethasone. continue amiodarone, coreg, eliquis, asp, lipitor, entresto. has chronic lung changes with current volume overload is not oriented with underlying psychiatric disorder, please obtain home med list for it hemostable, mobilize as tolerated, encourage oral intake, likely will need home O2 await diuresis to see if he gets better with exertional spo2 levels. staff to try and obtain psych med list from [facility] if they can help us out.
--- NOTE | 2020-05-21 15:09 | PRG ---
DATE OF SERVICE: 05/21/2020 SUBJECTIVE: Mr. Lee appears better than when I last saw him. He is quite, said he was relaxing. He ate well breakfast and lunch. No pain at this point. No abdominal pain. Specifically, no genitourinary symptoms. OBJECTIVE: VITAL SIGNS: He is afebrile. BP 120/70, heart rate 68, breathing at 24 times a minute, saturating 100 at 4 L when I saw him. LUNGS: With symmetric air entry. Few crackles scattered sparsely over the lung nuñez. HEART: S1, S2. Regular rate. ABDOMEN: Soft, not distended. LABORATORY DATA: White cell count 10.6. SARS-CoV-2 RT-PCR from May 19 not detected, but the antibody is pending at this time, was submitted this morning. ASSESSMENT AND DISCUSSION: Schizophrenia, nonischemic cardiomyopathy, type 2 diabetes, chronic kidney disease, change in sense of smell, anorexia, diffuse bilateral ground-glass opacities with multiple negative SARS-CoV-2 RT-PCR tests. So, antibodies pending. We could try to submit a saliva test. Repeat test for SARS-CoV-2 I think it is a new modality of testing, introduced here in the hospital. I think we should take advantage of it. In the meantime, continue Rody. Job ID: [id number]
[2020-05-21 15:18] LABS: #Lymphocytes 1.2 thou/uL (1.20-3.40); #Monocytes 0.8 thou/uL (0.11-0.59); #Neutrophils 12.4 thou/uL (1.40-6.50); %Basophils 0.1 % (0.0-1.0); %Eosinophils 0.1 % (0.0-10.0); %Lymphocytes 8.2 % (21.0-51.0); %Monocytes 5.7 % (0.0-10.0); Mean Corpuscular HGB CONC 32.6 g/dL (32.0-36.0); Mean Corpuscular Hemoglobin 28.1 pg (27.0-31.0); Mean Corpuscular Volume 86.2 fL (78.0-98.0); Mean Platelet Volume 7.9 fL (7.4-10.4); Platelet Count 310 thou/uL (130-400); RBC Distribution Width 14.3 % (11.5-14.5); Red Blood Cell (RBC) Count 3.92 mill/uL (4.70-6.10); White Blood Cell (WBC) Count 14.4 thou/uL (4.8-10.8)
[2020-05-21 15:45] LABS: Anion Gap 13 mmol/L (10-20); BUN (Urea Nitrogen) 53 mg/dL (8.4-25.7); Calc. Creatinine Clearance 41 mL/min (70-130); Carbon Dioxide 23 mmol/L (23-31); Chloride 109 mmol/L (98-107); Glucose 143 mg/dL (83-110); Potassium 4.3 mmol/L (3.5-5.1); Sodium 141 mmol/L (136-145)
[2020-05-21] MEDS: Atorvastatin Calcium 40 MG TAB PO SCH (19:38)
[2020-05-21] MEDS: Amitriptyline HCl 25 MG TAB PO SCH (19:38)
[2020-05-21 21:53] LABS: SARS-CoV-2 IgG Ab Non-Reactive (NonReactive); SARS-CoV-2 IgG Index 0.03 S/CO (< 1.40)
--- NOTE | 2020-05-21 22:02 | CON ---
DATE OF CONSULTATION: HISTORY OF PRESENT ILLNESS: Ashish Lee is a 75-year-old black male initially evaluated in December 2019. He presented to [facility] with chest discomfort and atrial fibrillation. For 2 weeks prior to that, he would have episodes of chest pressure, some of which would last for 1 or 2 days continuously. He also had shortness of breath and palpitations. He underwent adenosine Cardiolite testing, which revealed a fixed anteroseptal and posterior inferior wall defects. There was no reversible ischemia. Ejection fraction was 23% with global hypokinesis. It was recommended that he undergo cardiac catheterization. However, he signed out AMA without further evaluation. He ultimately called the office a week or two later and stated that he wanted catheterization. This was then performed on February 14, 2020. He had severe global hypokinesis with ejection fraction of 15% to 20%. There was a 10% proximal LAD, 40% mid LAD, 40% proximal circumflex. The right coronary artery was small and normal. It is of note that his preop EKG showed that he was back in sinus rhythm. However, when he presented for catheterization, he was in atrial fibrillation with fast ventricular response. It was felt that he needed to be admitted to control his rate and address the atrial fibrillation. He was started on carvedilol and loaded with p.o. amiodarone. After 2 days loading with amiodarone, he converted spontaneously to sinus rhythm. He was also started on low-dose Entresto. Eliquis was also started while in the hospital. Mr. Lee was fitted for a LifeVest prior to discharge. It was felt that he could not properly operate the vest and was not sent home with one. He was to return 2 weeks later for monitoring his potassium and kidney function on the Entresto; however he has never returned. Apparently he is still on amiodarone 400 mg b.i.d. He was sent home with a tapering dose. He now is transferred from [place] [facility] for altered mental status and multifocal pulmonary infiltrates. He also has lost his sense of taste and smell. COVID swab as well as antibodies have been negative; however it was felt by Infectious Disease that he has COVID given this clinical spectrum. Mr. Lee does complain of some shortness of breath, but denies any chest discomfort; however, with his confusion, it is hard to get any accurate history from him. PAST MEDICAL HISTORY: Severe nonischemic cardiomyopathy with ejection fraction of 15% to 20%, paroxysmal atrial fibrillation converting with p.o. amiodarone during last admission, diabetes, hypercholesterolemia, schizophrenia, gout, GERD. OPERATIONS: Appendectomy. MEDICATIONS: 1. Allopurinol 300 mg daily. 2. Amiodarone 400 mg b.i.d. 3. Amitriptyline 50 at bedtime. 4. Eliquis 5 mg b.i.d. 5. Aspirin 81 daily. 6. Atorvastatin 40 mg at bedtime. 7. Carvedilol 6.25 b.i.d. 8. Fluoxetine 20 mg daily. 9. Furosemide 20 mg daily. 10. Metformin 500 mg q.p.m. 11. Entresto one half tablet b.i.d. ALLERGIES: NONE. SOCIAL HISTORY: Smokes five cigarettes per day and also dips snuff. He does not drink alcohol. REVIEW OF SYSTEMS: Ten point review of system is difficult to obtain with the patient's current mentation. PHYSICAL EXAMINATION: VITAL SIGNS: Blood pressure 118/87, pulse 71. HEENT: PERRL. NECK: Supple. CHEST: Clear. CARDIAC: S1 and S2 normal without any S3, S4, or murmurs. ABDOMEN: Normal bowel sounds without tenderness. EXTREMITIES: Revealed no clubbing, cyanosis, or edema. NEUROLOGIC: Grossly intact. SKIN: Warm and dry. LABORATORY DATA: EKGs reveals normal sinus rhythm with probable left atrial enlargement, poor R-wave progression. Hemoglobin 11.0, hematocrit 33.8, white count 61026, platelets 310,000. PT 17.8, INR 1.4. Sodium 135, potassium 4.1, chloride 108 carbon dioxide 26, BUN 41, creatinine 1.52. Troponin I is 0.293. He has chronically elevated troponin I's. IMPRESSION: 1. Chest x-ray and symptoms compatible with COVID-19; however his tests thus far have been negative. 2. Minimal coronary artery disease on catheterization in January 2020. 3. Noncompliance with office followups-he was supposed to return two weeks after his hospitalization in January; however, I have not seen him since. 4. Paroxysmal atrial fibrillation, converting with p.o. amiodarone. 5. Severe nonischemic cardiomyopathy with ejection fraction of 15% to 20%. 6. Possible noncompliance with medicines. I am uncertain as if he is truly taking his medications. Also at the present time, he should only be on amiodarone 200 mg daily instead of 400 mg b.i.d. 7. Hypertension. 8. Diabetes. 9. Hypercholesterolemia. 10. Smoker. 11. Schizophrenia. 12. Chronic kidney disease. PLAN: Amiodarone will be reduced to 200 mg daily. Some thought needs to be given to these possible infiltrates being related to amiodarone alone. His significantly elevated BUN and renal function needs to be watched closely-he may be somewhat over diuresed. Also when his current problems have improved, he needs to undergo echocardiography to reassess left ventricular function and he certainly may need a defibrillator. 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 Job ID: [id number] MTDD
[2020-05-22 05:30] LABS: Anion Gap 15 mmol/L (10-20); BUN (Urea Nitrogen) 54 mg/dL (8.4-25.7); Calc. Creatinine Clearance 39 mL/min (70-130); Carbon Dioxide 22 mmol/L (23-31); Chloride 107 mmol/L (98-107); Glucose 115 mg/dL (83-110); Potassium 4.2 mmol/L (3.5-5.1); Sodium 140 mmol/L (136-145)
[2020-05-22] MEDS: Furosemide 40 MG/4 ML VIAL SLOW IVP SCH (05:39)
[2020-05-22] MEDS: Dexamethasone 4 mg/ml Vial IVPB SCH (08:03)
[2020-05-22] MEDS: Amiodarone 200 MG TAB PO SCH (08:03)
[2020-05-22] MEDS: Apixaban 5 MG TAB PO SCH ×2 (08:04→21:31)
[2020-05-22] MEDS: Carvedilol 6.25 MG TAB PO SCH ×2 (08:04→17:36)
[2020-05-22] MEDS: Allopurinol 300 MG TAB PO SCH (08:04)
[2020-05-22] MEDS: Aspirin 81 mg Enteric Coated Tablet PO SCH (08:04)
[2020-05-22] MEDS: Furosemide 40 MG TAB PO SCH (08:05)
--- NOTE | 2020-05-22 14:38 | PDOC.HOSPP ---
- Subjective Encounter Date: 05/22/20 Encounter Time: 10:15 Subjective: has mild resp distress with grunting with each breath, had pulled out his O2 canula inadvertently this am no chest pain or palp - Objective Vital Signs & Weight: Vital Signs (12 hours) Temp Pulse Resp BP Pulse Ox 05/22/20 12:18 96.2 F L 72 32 H 138/83 95 05/22/20 11:22 96.5 F L 76 24 H 139/77 05/22/20 08:21 96.7 F L 70 24 H 137/75 94 L 05/22/20 04:00 97.5 F L 74 24 H 116/64 93 L Weight Admit Weight 195 lb 3.408 oz Weight 185 lb 14.4 oz I&O: 05/21/20 05/22/20 05/23/20 06:59 06:59 06:59 Intake Total 740 840 Output Total 1325 1100 Balance -585 -396 Result Diagrams: 05/21/20 15:10 05/22/20 04:30 Hospitalist ROS - Medication Medications: Active Medications Generic Name Dose Route Start Last Admin Trade Name Sixtoq PRN Reason Stop Dose Admin Allopurinol 300 mg 05/20/20 09:00 05/22/20 08:04 Allopurinol 300 Mg Tab PO 300 mg DAILY STEPH Administration Amiodarone HCl 200 mg 05/22/20 09:00 05/22/20 08:03 Amiodarone 200 Mg Tab PO 200 mg DAILY STEPH Administration Amitriptyline HCl 50 mg 05/20/20 21:00 05/21/20 19:38 Amitriptyline Hcl 25 Mg Tab PO 50 mg HS STEPH Administration Apixaban 5 mg 05/20/20 09:00 05/22/20 08:04 Apixaban 5 Mg Tab PO 5 mg BID STEPH Administration Aspirin 81 mg 05/20/20 09:00 05/22/20 08:04 Aspirin 81 Mg Enteric Coated Tablet PO 81 mg DAILY STEPH Administration Atorvastatin Calcium 40 mg 05/20/20 21:00 05/21/20 19:38 Atorvastatin Calcium 40 Mg Tab PO 40 mg HS STEPH Administration Carvedilol 6.25 mg 05/20/20 08:00 05/22/20 08:04 Carvedilol 6.25 Mg Tab PO 6.25 mg BID-WM STEPH Administration Dexamethasone 6 mg 05/21/20 09:00 05/22/20 08:03 Dexamethasone 4 Mg/Ml Vial IVPB 6 mg DAILY STEPH Administration Furosemide 40 mg 05/22/20 07:30 05/22/20 08:05 Furosemide 40 Mg Tab PO Not Given DAILY-AC STEPH Sacubitril/Valsartan 0.5 tab 05/20/20 09:00 05/22/20 08:04 Sacubitril 24mg/Valsartan 26mg Tab PO 0.5 tab BID STEPH Administration Sodium Chloride 10 ml 05/20/20 09:00 05/22/20 08:08 Flush - Normal Saline 10 Ml Syringe IVF 10 ml Q12HR STEPH Administration Sodium Chloride 10 ml 05/20/20 02:30 05/20/20 17:44 Flush - Normal Saline 10 Ml Syringe IVF 10 ml PRN PRN Administration Saline Flush Hospitalist Exam Vitals: Vital Signs (12 hours) Temp Pulse Resp BP Pulse Ox 05/22/20 12:18 96.2 F L 72 32 H 138/83 95 05/22/20 11:22 96.5 F L 76 24 H 139/77 05/22/20 08:21 96.7 F L 70 24 H 137/75 94 L 05/22/20 04:00 97.5 F L 74 24 H 116/64 93 L Weight Admit Weight 195 lb 3.408 oz Weight 185 lb 14.4 oz General Appearance: ill appearing Eye: PERRL, anicteric sclera ENT: no oropharyngeal lesions, dry oral mucosa Neck: supple, symmetric Heart: RRR, no murmur Respiratory: no wheezes, rales, rhonchi Gastrointestinal: soft, non-tender, non-distended, normal bowel sounds Extremities: no cyanosis, no edema Neurological: cranial nerve grossly intact, no focal deficits Hosp A/P (1) Acute on chronic systolic (congestive) heart failure Code(s): I50.23 - ACUTE ON CHRONIC SYSTOLIC (CONGESTIVE) HEART FAILURE Status: Acute (2) Pneumonia Code(s): J18.9 - PNEUMONIA, UNSPECIFIED ORGANISM Status: Acute Qualifiers: Pneumonia type: due to unspecified organism (3) Nonischemic cardiomyopathy Code(s): I42.8 - OTHER CARDIOMYOPATHIES Status: Chronic (4) Atrial fibrillation Code(s): I48.91 - UNSPECIFIED ATRIAL FIBRILLATION Status: Chronic Qualifiers: Atrial fibrillation type: paroxysmal (5) GERD (gastroesophageal reflux disease) Code(s): K21.9 - GASTRO-ESOPHAGEAL REFLUX DISEASE WITHOUT ESOPHAGITIS Status: Chronic Qualifiers: Esophagitis presence: without esophagitis Qualified Code(s): K21.9 - Gastro-esophageal reflux disease without esophagitis (6) Hyperlipidemia Code(s): E78.5 - HYPERLIPIDEMIA, UNSPECIFIED Status: Chronic Qualifiers: (7) Hypertension Code(s): I10 - ESSENTIAL (PRIMARY) HYPERTENSION Status: Chronic Qualifiers: (8) Schizophrenia Code(s): F20.9 - SCHIZOPHRENIA, UNSPECIFIED Status: Chronic Qualifiers: Schizophrenia type: unspecified Qualified Code(s): F20.9 - Schizophrenia, unspecified (9) Type 2 diabetes mellitus Status: Chronic Qualifiers: Diabetes mellitus half-way insulin use: without electrical automation engineer use - Plan oral lasix, has prior ef of 15%, likely is noncomplaint? has nearly 6 covid pcr testing done all of which have been -ve, is presumed to have had covid with pulm infiltrates/fibrosis, on dexamethasone. continue amiodarone 200mg daily, coreg, eliquis, asp, lipitor, entresto. has chronic lung changes with current volume overload is not oriented with underlying psychiatric disorder, please obtain home med list for it hemostable, mobilize as tolerated, encourage oral intake, will need home O2. staff to try and obtain psych med list from [facility] if they can help us out. prognosis guarded. I have give complete updates to his sister over phone 05/20, 05/21, 05/22, she is aware of poor prognosis, code status was discussed with her, wants him to be full code (05/22).
[2020-05-22] MEDS: Atorvastatin Calcium 40 MG TAB PO SCH (21:31)
[2020-05-22] MEDS: Amitriptyline HCl 25 MG TAB PO SCH (21:31)
[2020-05-23 05:20] LABS: Anion Gap 16 mmol/L (10-20); BUN (Urea Nitrogen) 58 mg/dL (8.4-25.7); Calc. Creatinine Clearance 43 mL/min (70-130); Calcium 9.1 mg/dL (7.8-10.44); Carbon Dioxide 22 mmol/L (23-31); Chloride 107 mmol/L (98-107); Glucose 111 mg/dL (83-110); Potassium 4.2 mmol/L (3.5-5.1); Sodium 141 mmol/L (136-145)
[2020-05-23] MEDS: Aspirin 81 mg Enteric Coated Tablet PO SCH (08:20)
[2020-05-23] MEDS: Furosemide 40 MG TAB PO SCH (08:20)
[2020-05-23] MEDS: Carvedilol 6.25 MG TAB PO SCH ×2 (08:20→17:02)
[2020-05-23] MEDS: Apixaban 5 MG TAB PO SCH ×2 (08:20→20:45)
[2020-05-23] MEDS: Allopurinol 300 MG TAB PO SCH (08:20)
[2020-05-23] MEDS: Amiodarone 200 MG TAB PO SCH (08:20)
[2020-05-23] MEDS: Dexamethasone 4 mg/ml Vial IVPB SCH (08:20)
--- NOTE | 2020-05-23 10:03 | PQF ---
CLINICAL DOCUMENTATION CLARIFICATION FORM: Dear Dr. Aster Wilhelm Date: 05/23/2020 [id number] Please exercise your independent, professional judgment in responding to the clarification form. Clinical indicators are provided on the bottom of this form for your review. Please check appropriate box(es): [ x ] Acute Respiratory Failure: [ x ] with Hypoxia [ ] with Hypercapnia [ ] Acute On Chronic Respiratory Failure: [ ] with Hypoxia [ ] with Hypercapnia [ ] Acute Respiratory Failure due to: (etiology) [ ] Chronic Respiratory Failure only [ ] with Hypoxia [ ] with Hypercapnia [ ] Hypoxia [ ] Other diagnosis [ ] Unable to determine In addition, please specify: Present on Admission (POA): [ x ] Yes [ ] No [ ] Unable to determine For continuity of documentation, please document condition throughout progress notes and discharge summary. Thank You. To be completed by CDI/Coding staff for physician review: CLINICAL INDICATORS - SIGNS / SYMPTOMS / LABS / RESULTS AND LOCATION IN MR Found at home disoriented, respirations 40, 93% RA > 97% 3L/NC, worsening multifocal pneumonia with hypoxia (ED report) 05/19 Patient denies any fever but does endorse chills, and difficulty breathing, apparently today family found him more confused than yesterday complaining of dyspnea with a RR per EMS of 40 ( H&P/ Chris) 05/19 Has chronic lung changes with current volume overload, likely with need home O2, await diuresis to see if he gets better exertional spo2 levels. ( PN/[place]) 05/21 Has mild resp distress with grunting with each breath, had pulled out his O2 canula inadvertently this am, pulmonary infiltrates/fibrosis ( PN/[place]) 05/22 RISK FACTORS / RESULTS AND LOCATION IN MR Pneumonia, Acute on Chronic Systolic CHF ( PN/[place]) 05/22 TREATMENTS / RESULTS AND LOCATION IN MR Supplemental O2 ( 05/20 present) Lasix PO ( 05/22 present) Acute Respiratory Failure: ABG pH < 7.35 or > 7.45; Decreased oxygen saturation (<90% room air or < 95% on oxygen); PCO2 > 50 mm Hg; PO2 < 60 mm Hg; Labored or rapid respirations ARDS: Dx Criteria [[place] ARDS]: Respiratory symptoms within one week of a known clinical insult (e.g. shock, infection, surgery, trauma) Bilateral opacities in CXR/Chest CT not due to CHF or fluid THANK YOU! CDS Signature: Pratima Terrazas RN Phone #: [phone] Date: 05/23/2020 This is a permanent part of the Medical Record [id number]
--- NOTE | 2020-05-23 11:18 | PQF ---
0 CLINICAL DOCUMENTATION CLARIFICATION FORM: Dear Date: 05/23/2020 1730 Please exercise your independent, professional judgment in responding to the clarification form. Clinical indicators are provided on the bottom of this form for your review. COVID 19 Clarification and Manifestations: Please check appropriate box(es): A. COVID 19 virus diagnosis Validation: [ x ] COVID-19 Currently being treated [ ] COVID-19 Not currently being treated [ ] Other explanation of clinical findings [ ] Unable to determine B. COVID 19 virus with associated manifestations: (please check all that apply) [ x ] Pneumonia [ x ] Acute Respiratory Failure [ ] ARDS [ ] Encephalopathy [ ] Sepsis Viral [ ] Other diagnosis [ ] Unable to determine In addition, please specify: Present on Admission (POA): [ x ] Yes [ ] No [ ] Unable to determine For continuity of documentation, please document condition throughout progress notes and discharge summary. Thank You. To be completed by CDI/Coding staff for physician review: Clinical Indicators - Signs / Symptoms / Labs with Results and Location in Medical Record Has nearly 6 COVID pcr testing done all of which have been -ve, is presumed to have COVID with pulmonary infiltrates/fibrosis, on dexamethasone. ( PN/[place]) 05/22 Chest x-ray symptoms compatible with COVID -19, however his test thus far have been negative (Consult/Fabián) 05/21 Despite negative [id number]-PCR tests, the diagnosis of COVID-19 is very likely. The presence of anosmia in the setting of diffuse ground glass opacities and imaging studies of the lungs are highly specific for COVID -19 in the face of the current pandemic ( Consult/Coby) 05/20 Patient with multiple recent admissions, one for heart failure and second for possible COVID 19 pneumonia. Patient denies any fever but does endorse chills, and difficulty breathing. Patient does refer some productive cough (H&P/Herman/Leon) 05/20 Risk Factors with Results and Location in Medical Record Pneumonia, Respiratory distress ( PN/[place]) 05/22 Treatments with Results and Location in Medical Record Supplemental oxygen (05/20 present) Infectious disease consult ( Coby/ 05/20) Cefepime IV ( 05/20) Vancomycin IV ( 05/20) CDS Signature: Pratima Terrazas RN Phone #:[phone] Date:05/23/2020 1059 This is a permanent part of the Medical Record [facility]
--- NOTE | 2020-05-23 13:57 | RAD ---
Chest AP view INDICATION: Follow-up COMPARISON: Prior exam dated May 19, 2020 FINDINGS: Lungs: There is worsening bilateral airspace disease Cardiac silhouette: Cardiomegaly persists Pulmonary vasculature: There is worsening pulmonary vascular congestion Pleural spaces: There are small bilateral pleural effusions, new. Upper abdomen: No abnormality seen. Osseous structures: No acute osseous abnormality. Additional findings: IMPRESSION: Worsening bilateral airspace disease suspicious for pneumonia. There is cardiomegaly pulmonary vascul ar congestion and small bilateral pleural effusions suspicious for component of CHF.
[2020-05-23] MEDS ORDERED: Furosemide 40 MG/4 ML VIAL SLOW IVP SCH (16:00)
--- NOTE | 2020-05-23 16:01 | PDOC.HOSPP ---
- Subjective Encounter Date: 05/23/20 Encounter Time: 13:15 Subjective: he had pulled his O2 out and tried getting out of bed, desaturating with confusion this am was placed on high flow, restraints were applied due to resp failure and the need for O2/fall risk - Objective Vital Signs & Weight: Vital Signs (12 hours) Temp Pulse Pulse Resp Resp BP BP 05/23/20 12:00 98.5 F 70 23 H 05/23/20 11:40 78 26 H 140/92 H 05/23/20 11:16 05/23/20 08:20 122/69 05/23/20 08:00 98.9 F 75 22 H 05/23/20 07:30 05/23/20 04:00 97.7 F 72 24 H BP Pulse Ox Pulse Ox Pulse Ox 05/23/20 12:00 142/78 H 90 L 05/23/20 11:40 70 L 91 L 05/23/20 11:16 93 L 05/23/20 08:20 05/23/20 08:00 137/73 91 L 05/23/20 07:30 91 L 05/23/20 04:00 140/73 91 L Weight Admit Weight 195 lb 3.408 oz Weight 187 lb 11.2 oz I&O: 05/22/20 05/23/20 05/24/20 06:59 06:59 06:59 Intake Total 840 1040 Output Total 1100 1250 Balance -260 -210 Result Diagrams: 05/21/20 15:10 05/23/20 04:49 Hospitalist ROS - Medication Medications: Active Medications Generic Name Dose Route Start Last Admin Trade Name Sixtoq PRN Reason Stop Dose Admin Allopurinol 300 mg 05/20/20 09:00 05/23/20 08:20 Allopurinol 300 Mg Tab PO 300 mg DAILY STEPH Administration Amiodarone HCl 200 mg 05/22/20 09:00 05/23/20 08:20 Amiodarone 200 Mg Tab PO 200 mg DAILY STEPH Administration Amitriptyline HCl 50 mg 05/20/20 21:00 05/22/20 21:31 Amitriptyline Hcl 25 Mg Tab PO 50 mg HS STEPH Administration Apixaban 5 mg 05/20/20 09:00 05/23/20 08:20 Apixaban 5 Mg Tab PO 5 mg BID STEPH Administration Aspirin 81 mg 05/20/20 09:00 05/23/20 08:20 Aspirin 81 Mg Enteric Coated Tablet PO 81 mg DAILY STEPH Administration Atorvastatin Calcium 40 mg 05/20/20 21:00 05/22/20 21:31 Atorvastatin Calcium 40 Mg Tab PO 40 mg HS STEPH Administration Carvedilol 6.25 mg 05/20/20 08:00 05/23/20 08:20 Carvedilol 6.25 Mg Tab PO 6.25 mg BID-WM STEPH Administration Dexamethasone 6 mg 05/21/20 09:00 05/23/20 08:20 Dexamethasone 4 Mg/Ml Vial IVPB 6 mg DAILY STEPH Administration Furosemide 40 mg 05/22/20 07:30 05/23/20 08:20 Furosemide 40 Mg Tab PO 40 mg DAILY-AC STEPH Administration Sacubitril/Valsartan 0.5 tab 05/20/20 09:00 05/23/20 08:27 Sacubitril 24mg/Valsartan 26mg Tab PO 0.5 tab BID STEPH Administration Sodium Chloride 10 ml 05/20/20 09:00 05/23/20 08:27 Flush - Normal Saline 10 Ml Syringe IVF 10 ml Q12HR STEPH Administration Sodium Chloride 10 ml 05/20/20 02:30 05/20/20 17:44 Flush - Normal Saline 10 Ml Syringe IVF 10 ml PRN PRN Administration Saline Flush Hospitalist Exam Vitals: Vital Signs (12 hours) Temp Pulse Pulse Resp Resp BP BP 05/23/20 12:00 98.5 F 70 23 H 05/23/20 11:40 78 26 H 140/92 H 05/23/20 11:16 05/23/20 08:20 122/69 05/23/20 08:00 98.9 F 75 22 H 05/23/20 07:30 05/23/20 04:00 97.7 F 72 24 H BP Pulse Ox Pulse Ox Pulse Ox 05/23/20 12:00 142/78 H 90 L 05/23/20 11:40 70 L 91 L 05/23/20 11:16 93 L 05/23/20 08:20 05/23/20 08:00 137/73 91 L 05/23/20 07:30 91 L 05/23/20 04:00 140/73 91 L Weight Admit Weight 195 lb 3.408 oz Weight 187 lb 11.2 oz General Appearance: ill appearing Eye: PERRL, anicteric sclera ENT: no oropharyngeal lesions, dry oral mucosa Neck: supple, no JVD Heart: RRR, no murmur Respiratory: no wheezes, rales, rhonchi Gastrointestinal: soft, non-tender, non-distended, normal bowel sounds Extremities: no cyanosis, no edema Neurological: cranial nerve grossly intact, no focal deficits Hosp A/P (1) Acute on chronic systolic (congestive) heart failure Code(s): I50.23 - ACUTE ON CHRONIC SYSTOLIC (CONGESTIVE) HEART FAILURE Status: Acute (2) Pneumonia Code(s): J18.9 - PNEUMONIA, UNSPECIFIED ORGANISM Status: Acute Qualifiers: Pneumonia type: due to unspecified organism (3) Nonischemic cardiomyopathy Code(s): I42.8 - OTHER CARDIOMYOPATHIES Status: Chronic (4) Atrial fibrillation Code(s): I48.91 - UNSPECIFIED ATRIAL FIBRILLATION Status: Chronic Qualifiers: Atrial fibrillation type: paroxysmal (5) GERD (gastroesophageal reflux disease) Code(s): K21.9 - GASTRO-ESOPHAGEAL REFLUX DISEASE WITHOUT ESOPHAGITIS Status: Chronic Qualifiers: Esophagitis presence: without esophagitis Qualified Code(s): K21.9 - Gastro-esophageal reflux disease without esophagitis (6) Hyperlipidemia Code(s): E78.5 - HYPERLIPIDEMIA, UNSPECIFIED Status: Chronic Qualifiers: (7) Hypertension Code(s): I10 - ESSENTIAL (PRIMARY) HYPERTENSION Status: Chronic Qualifiers: (8) Schizophrenia Code(s): F20.9 - SCHIZOPHRENIA, UNSPECIFIED Status: Chronic Qualifiers: Schizophrenia type: unspecified Qualified Code(s): F20.9 - Schizophrenia, unspecified (9) Type 2 diabetes mellitus Status: Chronic Qualifiers: Diabetes mellitus correction insulin use: 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 has nearly 6 covid pcr testing done all of which have been -ve, is presumed to have had covid with pulm infiltrates/fibrosis, on dexamethasone. continue amiodarone 200mg daily, coreg, eliquis, asp, lipitor, entresto. has chronic lung changes with current volume overload is not fully oriented with underlying psychiatric disorder, please obtain home med list for it hemostable, mobilize as tolerated, encourage oral intake, will need home O2. staff to try and obtain psych med list from [facility] if they can help us out. prognosis guarded. I have give complete updates to his sister over phone 05/20, 05/21, 05/22, 05/23, she is aware of poor prognosis, code status was discussed with her, wants him to be full code (05/22).
[2020-05-23 16:35] LABS: #Monocytes 0.8 thou/uL (0.11-0.59); #Neutrophils 10.9 thou/uL (1.40-6.50); %Eosinophils 0.1 % (0.0-10.0); %Lymphocytes 7.9 % (21.0-51.0); Mean Corpuscular HGB CONC 32.7 g/dL (32.0-36.0); Mean Corpuscular Hemoglobin 27.8 pg (27.0-31.0); Mean Corpuscular Volume 84.9 fL (78.0-98.0); Mean Platelet Volume 7.6 fL (7.4-10.4); Platelet Count 348 thou/uL (130-400); RBC Distribution Width 14.5 % (11.5-14.5); Red Blood Cell (RBC) Count 3.97 mill/uL (4.70-6.10); White Blood Cell (WBC) Count 12.7 thou/uL (4.8-10.8)
[2020-05-23 16:36] LABS: INR-International Normal Ratio 1.8; PTT 31.9 sec (22.9-36.1); Prothrombin Time 21.1 sec (12.0-14.7)
[2020-05-23 16:56] LABS: ALT (SGPT) 58 U/L (8-55); AST (SGOT) 42 U/L (5-34); Albumin 2.9 g/dL (3.4-4.8); Alkaline Phosphatase 132 U/L (40-110); Bilirubin, Direct 0.5 mg/dL (0.1-0.3); Bilirubin, Total 0.8 mg/dL (0.2-1.2); Protein, Total 6.7 g/dL (5.8-8.1)
[2020-05-23] MEDS: Cefepime 1 GM in Sodium Chloride 0.9% 100 ML IVPB SCH (17:01)
[2020-05-23] MEDS: Atorvastatin Calcium 40 MG TAB PO SCH (20:45)
[2020-05-24] MEDS: Albuterol 200 PUFF (6.7GM INHALER) INH SCH ×4 (00:50→18:40)
[2020-05-24 05:51] LABS: BUN (Urea Nitrogen) 41 mg/dL (8.4-25.7); Calc. Creatinine Clearance 58 mL/min (70-130); Calcium 5.8 mg/dL (7.8-10.44); Carbon Dioxide 15 mmol/L (23-31); Chloride 130 mmol/L (98-107); Glucose 77 mg/dL (83-110); Sodium 140 mmol/L (136-145)
[2020-05-24] MEDS: Cefepime 1 GM in Sodium Chloride 0.9% 100 ML IVPB SCH ×2 (06:24→17:12)
[2020-05-24] MEDS ORDERED: Calcium Gluconate 9.2 MEQ in Sodium Chloride 0.9% 100 ML IVPB SCH (06:30)
[2020-05-24 06:49] LABS: Actual Bicarbonate (HCO3v) 20 mEq/L (22-28); Base Excess -3.7 mEq/L (-2.0 to +3.0); Calcium, Ionized (venous) 1.04 mmol/L (1.16-1.32); Chloride (VBG) 108 mmol/L (98-106); Hemoglobin (Hb) 11.7 g/dL (12.6-17.4); Potassium (VBG) 6.57 mmol/L (3.70-5.30); Sodium 138.4 mmol/L (133-146); pH (venous) 7.42 (7.32-7.43)
[2020-05-24] MEDS ORDERED: Potassium Chloride 20 MEQ TAB PO SCH (07:30)
[2020-05-24] MEDS ORDERED: Potassium Chloride 20 MEQ in Premix Bag 1 BAG IVPB SCH (07:30)
[2020-05-24 08:06] LABS: CRP (Inflammatory) 12.35 mg/dL (= or < 0.5)
[2020-05-24] MEDS: Carvedilol 6.25 MG TAB PO SCH ×2 (08:10→17:04)
[2020-05-24] MEDS: Amiodarone 200 MG TAB PO SCH (08:11)
[2020-05-24] MEDS: Allopurinol 100 MG TAB PO SCH (08:11)
[2020-05-24] MEDS: Dexamethasone 4 mg/ml Vial IVPB SCH (08:11)
[2020-05-24] MEDS: Aspirin 81 mg Enteric Coated Tablet PO SCH (08:11)
[2020-05-24] MEDS: Apixaban 5 MG TAB PO SCH ×2 (08:11→21:19)
[2020-05-24 08:19] LABS: Albumin 1.8 g/dL (3.4-4.8); Phosphorus 2.5 mg/dL (2.3-4.7)
[2020-05-24 08:24] LABS: PTT 32.6 sec (22.9-36.1)
[2020-05-24] MEDS ORDERED: EPINEPHrine 1 MG/10 ML Abboject SYRINGE ONE ×2 (10:13→13:26)
[2020-05-24] MEDS ORDERED: Amiodarone 200 MG TAB PO SCH ×2 (12:30→21:00)
[2020-05-24 13:12] LABS: Anion Gap 20 mmol/L (10-20); BUN (Urea Nitrogen) 57 mg/dL (8.4-25.7); Calc. Creatinine Clearance 45 mL/min (70-130); Calcium 8.9 mg/dL (7.8-10.44); Carbon Dioxide 10 mmol/L (23-31); Chloride 110 mmol/L (98-107); Glucose 134 mg/dL (83-110); Potassium 5.7 mmol/L (3.5-5.1); Sodium 134 mmol/L (136-145)
[2020-05-24 13:20] LABS: Actual Bicarbonate (HCO3a) 12.1 mEq/L (22-28); CO2 Tension 36.6 mmHg (35.0-45.0); Calcium, Ionized (arterial) 1.21 mmol/L (1.12-1.30); Carboxyhemoglobin (COHb) 0.3 gm% (0.0-3.0); Hemoglobin (Hb) 11.5 g/dL (14.0-18.0); O2 Tension (PaO2), arterial 358.6 mmHg (> 70.0); Potassium - ABG Lab 6.11 mmol/L (3.70-5.30)
[2020-05-24] MEDS ORDERED: Electrolyte Replacement Protocol 1 EACH FS ONE (13:23)
[2020-05-24] MEDS ORDERED: Ventilator Sedation Protocol 1 EACH FS ONE (13:23)
[2020-05-24 13:28] LABS: Puncture Site RRA; pH, Arterial 7.14 (7.35-7.45)
[2020-05-24] MEDS ORDERED: Propofol BOLUS 1,000 MG/100 ML VIAL IV PRN (13:30)
[2020-05-24] MEDS ORDERED: EPINEPHrine 4 MG in Dextrose 5% in Water 250 ML IV SCH (13:30)
[2020-05-24] MEDS ORDERED: Fentanyl BOLUS 250 ML IVPB PRN (13:30)
[2020-05-24] MEDS ORDERED: Morphine 2 MG/ML VIAL SLOW IVP PRN (13:30)
[2020-05-24] MEDS ORDERED: Electrolyte Replacement Protocol FS PRN (13:45)
--- NOTE | 2020-05-24 13:46 | RAD ---
Chest AP view INDICATION: History of intubation COMPARISON: May 23, 2020 at 1:43 PM FINDINGS: Lungs: Bilateral airspace disease persists Cardiac silhouette: Cardiomegaly is stable Pulmonary vasculature: Prominent pulmonary vascular congestion persists Pleural spaces: Small bilateral pleural effusions are similar. Upper abdomen: No abnormality seen. Osseous structures: No acute osseous abnormality. Additional findings: Patient is not intubated with the ET tube tip seen 2.2 cm from the vidal. Pace r pad overlies left chest wall. IMPRESSION: 1. Interval intubation. ET tube tip projects in expected position. 2. Persistent bilateral airspace disease suspicious for pneumonia and edema. 2. Persistent cardiomegaly pulmonary vascular congestion small pleural effusions suggesting CHF
[2020-05-24] MEDS: Furosemide 40 MG/4 ML VIAL SLOW IVP SCH (14:53)
[2020-05-24] MEDS ORDERED: Norepinephrine 8 MG/0.9% NS 250 ML IVPB SCH (15:30)
[2020-05-24] MEDS: Sodium Chloride 0.9% 1,000 ML IV SCH ×2 (15:44→21:35)
[2020-05-24] MEDS ORDERED: Sodium Bicarbonate 150 MEQ in Dextrose 5% in Water 1,000 ML IV ONE ×2 (16:45→18:43)
--- NOTE | 2020-05-24 16:47 | PDOC.HOSPP ---
- Subjective Encounter Date: 05/24/20 Encounter Time: 15:00 Subjective: I initially saw him around 10 am when he was comfortable on high flow O2, he wanted his restraints removed and was hungry and thirsty. Later around noon a code was called as he became unresponsive but was agitated before that per staff, he got intubated and transfered to ICU. Had multiple electrolyte issues in am labs, repeat stat labs were ordered, he got 20meq iv kcl and further oral doses were ordered, one dose of calcium gluconate was given stat as well. Post code blue he developed junctional rhythm with heart rates dipping into 50's and was given epinephrine and later drip was started His abg showed a ph of around 7.1 with overcorrection of Potassium? and very low hco3, which were promptly replaced. is at bedside monitoring him closely. - Objective Vital Signs & Weight: Vital Signs (12 hours) Temp Pulse Resp BP BP Pulse Ox 05/24/20 14:30 96 05/24/20 14:09 74 141/82 H 05/24/20 14:00 30 H 05/24/20 13:29 97 05/24/20 12:22 70 L 05/24/20 11:08 98.2 F 104 H 30 H 133/98 H 94 L 05/24/20 08:23 95 05/24/20 08:11 95 05/24/20 08:00 98.5 F 74 28 H 155/83 H 95 Weight Admit Weight 195 lb 3.408 oz Weight 182 lb 11.2 oz Most Recent Monitor Data Heart Rate from ECG 87 NIBP 183/103 NIBP BP-Mean 129 Respiration from ECG 30 SpO2 96 I&O: 05/23/20 05/24/20 05/25/20 06:59 06:59 06:59 Intake Total 1040 1060 700 Output Total 1250 5 Balance -210 1060 695 Result Diagrams: 05/26/20 03:05 05/26/20 03:05 Additional Labs: Accuchecks 05/24/20 12:27 POC Glucose 133 H Hospitalist ROS - Medication Medications: Active Medications Generic Name Dose Route Start Last Admin Trade Name Freq PRN Reason Stop Dose Admin Albuterol Sulfate 2 puff 05/24/20 01:00 05/24/20 13:31 Albuterol 200 Puff (6.7gm Inhaler) INH 2 puff [id number] STEPH Administration Allopurinol 100 mg 05/24/20 09:00 05/24/20 08:11 Allopurinol 100 Mg Tab PO 100 mg DAILY STEPH Administration Apixaban 5 mg 05/20/20 09:00 05/24/20 08:11 Apixaban 5 Mg Tab PO 5 mg BID STEPH Administration Atorvastatin Calcium 40 mg 05/20/20 21:00 05/23/20 20:45 Atorvastatin Calcium 40 Mg Tab PO 40 mg HS STEPH Administration Carvedilol 6.25 mg 05/20/20 08:00 05/24/20 08:10 Carvedilol 6.25 Mg Tab PO 6.25 mg BID-WM STEPH Administration Dexamethasone 6 mg 05/21/20 09:00 05/24/20 08:11 Dexamethasone 4 Mg/Ml Vial IVPB 6 mg DAILY STEPH Administration Furosemide 40 mg 05/24/20 14:00 05/24/20 14:53 Furosemide 40 Mg/4 Ml Vial SLOW IVP 40 mg 0600,1400 STEPH Administration Cefepime HCl 1 gm/ Sodium 100 mls @ 200 mls/hr 05/23/20 17:00 05/24/20 06:24 Chloride IVPB 100 mls 0500,1700 STEPH Administration Doxycycline Hyclate 100 mg/ 100 mls @ 100 mls/hr 05/24/20 08:00 05/24/20 10:15 Sodium Chloride IVPB 100 mls 0800,2000 STEPH Administration Sodium Chloride 1,000 mls @ 70 mls/hr 05/24/20 15:30 05/24/20 15:44 Normal Saline 0.9% IV Not Given .[id number] STEPH Sodium Chloride 10 ml 05/20/20 09:00 05/24/20 10:15 Flush - Normal Saline 10 Ml Syringe IVF 10 ml Q12HR STEPH Administration Sodium Chloride 10 ml 05/20/20 02:30 05/20/20 17:44 Flush - Normal Saline 10 Ml Syringe IVF 10 ml PRN PRN Administration Saline Flush Hospitalist Exam Vitals: Vital Signs (12 hours) Temp Pulse Resp BP BP Pulse Ox 05/24/20 14:30 96 05/24/20 14:09 74 141/82 H 05/24/20 14:00 30 H 05/24/20 13:29 97 05/24/20 12:22 70 L 05/24/20 11:08 98.2 F 104 H 30 H 133/98 H 94 L 05/24/20 08:23 95 05/24/20 08:11 95 05/24/20 08:00 98.5 F 74 28 H 155/83 H 95 Weight Admit Weight 195 lb 3.408 oz Weight 182 lb 11.2 oz Most Recent Monitor Data Heart Rate from ECG 87 NIBP 183/103 NIBP BP-Mean 129 Respiration from ECG 30 SpO2 96 General Appearance: ill appearing Eye: PERRL, anicteric sclera ENT: no oropharyngeal lesions, dry oral mucosa Neck: supple, no JVD Heart: RRR, no murmur Respiratory: no wheezes, rales, rhonchi Gastrointestinal: soft, non-tender, non-distended, normal bowel sounds Extremities: no cyanosis, 1+ LE edema Neurological: cranial nerve grossly intact, no focal deficits Hosp A/P (1) Acute respiratory failure with hypoxia and hypercarbia Code(s): J96.01 - ACUTE RESPIRATORY FAILURE WITH HYPOXIA; J96.02 - ACUTE RESPIRATORY FAILURE WITH HYPERCAPNIA Status: Acute (2) Acute on chronic systolic (congestive) heart failure Code(s): I50.23 - ACUTE ON CHRONIC SYSTOLIC (CONGESTIVE) HEART FAILURE Status: Acute (3) Pneumonia Code(s): J18.9 - PNEUMONIA, UNSPECIFIED ORGANISM Status: Acute Qualifiers: Pneumonia type: due to unspecified organism (4) Nonischemic cardiomyopathy Code(s): I42.8 - OTHER CARDIOMYOPATHIES Status: Chronic (5) Atrial fibrillation Code(s): I48.91 - UNSPECIFIED ATRIAL FIBRILLATION Status: Chronic Qualifiers: Atrial fibrillation type: paroxysmal Qualified Code(s): I48.0 - Paroxysmal atrial fibrillation (6) GERD (gastroesophageal reflux disease) Code(s): K21.9 - GASTRO-ESOPHAGEAL REFLUX DISEASE WITHOUT ESOPHAGITIS Status: Chronic Qualifiers: Esophagitis presence: without esophagitis Qualified Code(s): K21.9 - Gastro-esophageal reflux disease without esophagitis (7) Hyperlipidemia Code(s): E78.5 - HYPERLIPIDEMIA, UNSPECIFIED Status: Chronic Qualifiers: (8) Hypertension Code(s): I10 - ESSENTIAL (PRIMARY) HYPERTENSION Status: Chronic Qualifiers: (9) Schizophrenia Code(s): F20.9 - SCHIZOPHRENIA, UNSPECIFIED Status: Suspected Qualifiers: Schizophrenia type: unspecified Qualified Code(s): F20.9 - Schizophrenia, unspecified (10) Type 2 diabetes mellitus Status: Chronic Qualifiers: 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 Unclear if he has sustained anoxic brain injury on top of above with today's code blue, although witnessed and prompt resucitative measures were done. If a second resucitation is done his chances of survival are very bleak and suggest comfort care at that point, D/w and he agrees with it, further resucitation will be futile and will not change his outcome. contnue diuresis as tolerated with close monitoring of electrolytes, cxr this am shows worsening congestion, prior ef of 15%, likely is noncomplaint? has nearly 6 covid pcr testing done all of which have been -ve, is presumed to have had covid with pulm infiltrates/fibrosis, on dexamethasone per ID advice. continue amiodarone 400mg bid per 's adv, coreg low dose, eliquis, asp, lipitor. May hold eliquis and entresto if ok with cardiology given his labile situation and possible worsening of renal function/bleeding. has chronic lung changes with current volume overload. I have give complete updates to his sister over phone 05/20, 05/21, 05/22, 05/23, she is aware of poor prognosis, code status was discussed with her, wants him to be full code (05/22). I d/w sister this am and again after the code blue, she is aware of imminent if he were to code again. Social work consultation was requested to find if he has any children who are in touch with him for next of kin, per sister he has many but none are in touch with him, they both live together and help each other.
--- NOTE | 2020-05-24 17:15 | EKG ---
Test Reason : AFTER CODE BLUE Blood Pressure : / mmHG Vent. Rate : 059 BPM Atrial Rate : 051 BPM P-R Int : 000 ms QRS Dur : 112 ms QT Int : 452 ms P-R-T Axes : 000 047 119 degrees QTc Int : 447 ms Junctional rhythm Low voltage QRS Possible Inferior infarct , age undetermined Abnormal ECG When compared with ECG of 19-MAY-2020 20:29, (Unconfirmed) Significant changes have occurred Confirmed by DR. Lucian BIRCH ([id number]) on 05/24/2020 5:14:48 PM Referred By: LYNN Confirmed By:DR. Lucian BIRCH
[2020-05-24] MEDS: Propofol 1,000 MG/100 ML VIAL IV PRN ×2 (17:17→21:19)
[2020-05-24] MEDS: Lorazepam 2 MG/ML VIAL SLOW IVP PRN (17:36)
[2020-05-24] MEDS: Atorvastatin Calcium 40 MG TAB PO SCH (21:19)
[2020-05-25] MEDS: Albuterol 200 PUFF (6.7GM INHALER) INH SCH ×4 (00:13→18:20)
--- NOTE | 2020-05-25 00:19 | CON ---
DATE OF CONSULTATION: 05/24/2020 HISTORY OF PRESENT ILLNESS: Mr. Lee is a 75-year-old male, who apparently coded today, was transferred, intubated to the critical care unit. He received intermittently three more milligrams of epinephrine after he arrived in the ICU. Blood gas showed significant acidemia with pH 7.14, CO2 36, and PO2 358. He was then hyperventilated, given two amps of bicarb, and hemodynamically stabilized. Chest radiograph shows diffuse infiltrates and bilateral effusions. He has a history of severe cardiomyopathy. We were consulted to assist in his management. PAST MEDICAL HISTORY: Remarkable for, 1. Coronary disease. 2. History of an ejection fraction of 15-20% last fall. 3. Atrial fibrillation, treated with amiodarone, starting last fall. 4. History of noncompliance with followup. 5. History of mental illness, reportedly schizophrenia. 6. History of multiple COVID workups recently that have been negative. 7. History of smoking and dipping. 8. History of lipid disorder. 9. History of diabetes. FAMILY HISTORY: Negative for lung disease in early age. REVIEW OF SYSTEMS: Not obtainable with Lev[facility]. OBJECTIVE: VITAL SIGNS: His blood pressure is over 100, heart rate is in the 60s, respiratory rate 30, FiO2 is at 50%. HEAD AND NECK: Reactive pupils. Sclerae are anicteric. Neck is without lymphadenopathy. LUNGS: Remarkable for coarse equal breath sounds. HEART: Regular rhythm. ABDOMEN: Soft. EXTREMITIES: Without clubbing, cyanosis, or edema. LABORATORY DATA: White count 12.7, hemoglobin 11.0, platelets 348. Sodium 134, potassium 5.7, chloride 110, bicarb 10, BUN 57, creatinine 1.63. BNP was 3710. IMPRESSION: Status post cardiorespiratory arrest with severe metabolic acidosis and history of severe cardiomyopathy. I suspect this is consistent with worsening of his left ventricular systolic function on top of acute renal failure. It is unclear to me at this time whether or not he was taking amiodarone at home. If he was, his diffuse infiltrates could in theory also be attributed to amiodarone toxicity. I think it is less likely this is COVID-19. I think it is very likely that this is a high morbidity-mortality event. As we have progressed into the evening, he is developing some myoclonic jerking. I suspect he will not regain his pre-existing neurological function. CRITICAL CARE TIME: 45 minutes excluding procedures Job ID: [id number] MTDD
[2020-05-25] MEDS: Propofol 1,000 MG/100 ML VIAL IV PRN (04:32)
[2020-05-25 05:07] LABS: Anion Gap 16 mmol/L (10-20); BUN (Urea Nitrogen) 67 mg/dL (8.4-25.7); Calc. Creatinine Clearance 31 mL/min (70-130); Calcium 8.2 mg/dL (7.8-10.44); Carbon Dioxide 24 mmol/L (23-31); Chloride 107 mmol/L (98-107); Glucose 126 mg/dL (83-110); Potassium 4.3 mmol/L (3.5-5.1); Sodium 143 mmol/L (136-145)
[2020-05-25 05:33] LABS: #Lymphocytes 1.5 thou/uL (1.20-3.40); #Monocytes 0.9 thou/uL (0.11-0.59); #Neutrophils 10.6 thou/uL (1.40-6.50); %Basophils 0.2 % (0.0-1.0); %Eosinophils 0.1 % (0.0-10.0); %Lymphocytes 11.3 % (21.0-51.0); %Monocytes 6.7 % (0.0-10.0); %Neutrophils 81.7 % (42.0-75.0); Hemoglobin 9.5 g/dL (14.0-18.0); Mean Corpuscular HGB CONC 31.6 g/dL (32.0-36.0); Mean Corpuscular Hemoglobin 26.5 pg (27.0-31.0); Mean Corpuscular Volume 83.6 fL (78.0-98.0); Mean Platelet Volume 7.7 fL (7.4-10.4); Platelet Count 334 thou/uL (130-400); RBC Distribution Width 14.8 % (11.5-14.5)
[2020-05-25] MEDS: Furosemide 40 MG/4 ML VIAL SLOW IVP SCH (05:36)
[2020-05-25] MEDS: Cefepime 1 GM in Sodium Chloride 0.9% 100 ML IVPB SCH ×2 (05:36→17:00)
--- NOTE | 2020-05-25 07:09 | OP ---
DATE OF PROCEDURE: 05/24/2020 Mr. Lee had 2 procedures; arterial line placement and central line placement. His right femoral artery was palpated. He was blindly stuck with a 5-Amharic needle. A wire was passed. I could not consistently pass a wire, even though there was excellent blood flow, it was pulsatile out of the needle. He appears to have significant plaque in his femoral artery. I did get the catheter in, but I got no blood return out of the catheter, so that procedure was aborted. His right femoral vein was easily cannulated with an introducer needle. A vein dilator was inserted over a wire. Vein dilator was withdrawn. A triple-lumen catheter was inserted and sewn in place x3 and the wires were withdrawn and discarded. Good blood return was obtained from all 3 ports. Tolerated procedure well. Sterile dressing was applied. Job ID: [id number]
--- NOTE | 2020-05-25 07:22 | CON ---
DATE OF CONSULTATION: 05/24/2020 SERVICE: Nephrology. REASON FOR CONSULTATION: Hyperchloremia and renal insufficiency. REQUESTING PROVIDER: Arpan Dale MD. HISTORY OF PRESENT ILLNESS: A 75-year-old male with known history of dementia, atrial fibrillation, nonischemic cardiomyopathy with baseline EF ranging from 10 to 15, diabetes, amongst others, who was admitted on May 19, 2020, on transfer from [place] due to altered mental status and worsening pneumonia. The patient on presentation had elevated creatinine of 1.52, which worsened to a peak of 1.90 with diuretic therapy. The patient earlier today was found to have abnormal electrolytes with potassium of 3.0 and chloride of 130, as well as a calcium of 5.8, necessitating Nephrology consult. Of note, the patient was noted to have worsening respiratory status, associated with worsening acidosis, hence was intubated and transferred to the ICU. Even prior to presentation, the patient was a poor historian, one who was unable to provide any significant history. Of note, chest x-ray on presentation showed multifocal pneumonia, suggestive of atypical pneumonia with COVID infection as a possibility. However, COVID test has been negative. PAST MEDICAL HISTORY: 1. Severe nonischemic cardiomyopathy with ejection fraction of 10 to 15. 2. Paroxysmal atrial fibrillation. 3. Gastroesophageal reflux disease. 4. Gout. 5. Schizophrenia. 6. Hyperlipidemia. 7. Diabetes mellitus. PAST SURGICAL HISTORY: Appendectomy. FAMILY HISTORY: Could not be obtained due to the patient's condition. SOCIAL HISTORY: Reportedly, he smokes cigarettes and also dips snuff. There is no history of alcohol use. ALLERGIES: NO KNOWN DRUG ALLERGIES REPORTED. MEDICATIONS: Prior to hospital, medications are as follows; 1. Allopurinol 300 mg p.o. daily. 2. Amiodarone 400 mg p.o. b.i.d. 3. Amitriptyline 50 mg p.o. daily at bedtime. 4. Eliquis 5 mg p.o. b.i.d. 5. Aspirin 81 mg p.o. daily. 6. Lipitor 40 mg daily at bedtime. 7. Carvedilol 6.25 b.i.d. 8. Fluoxetine 20 mg p.o. daily. 9. Furosemide 20 mg p.o. daily. 10. Metformin 500 mg daily at bedtime. 11. Entresto 24 half tablet p.o. b.i.d. Current hospital medications; 1. . 2. Cefepime 1 g b.i.d. 3. Doxycycline 100 mg IV b.i.d. 4. Allopurinol 100 mg p.o. daily. 5. Amiodarone 400 mg p.o. b.i.d. 6. Eliquis 5 mg p.o. b.i.d. 7. Aspirin 81 mg p.o. daily. 8. Lipitor 40 mg daily at bedtime. 9. Carvedilol 6.25 mg p.o. b.i.d. 10. Dexamethasone 6 mg IV daily. 11. Furosemide 40 mg IV b.i.d. 12. Potassium chloride 40 mEq every 6 hours x3 doses. REVIEW OF SYSTEMS: Could not be performed due to the patient's condition. PHYSICAL EXAMINATION: VITAL SIGNS: Temperature 99.9, pulse 63, respiratory rate 30, SpO2 of 100%, blood pressure 108/64. GENERAL: Heavy built male. Afebrile. HEENT: Normocephalic and atraumatic. CARDIOVASCULAR: Irregular rhythm. RESPIRATORY: Ventilator transmitted breath sounds noted. GI: Full, soft, nondistended. EXTREMITIES: Mild bilateral elbow fullness/edema noted. 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 DIAGNOSTIC DATA: BMP earlier today showed a sodium of 140, potassium 3.0, chloride 130, CO2 of 15, BUN 41, creatinine 1.26, glucose 77, calcium 5.9, phosphorus 2.5, albumin 1.8. This is grossly different from previous lab results. A day prior to this on May 23, sodium was 141, potassium 4.2, chloride 107, CO2 of 22, BUN 58, creatinine 1.74, glucose 111, calcium 9.1, total bilirubin 0.8, AST 42, ALT 58, alkaline phosphatase 132, total protein 6.7, albumin 2.9. Repeat BMP later this afternoon showed sodium 134, potassium 5.7, chloride 110, CO2 of 10, BUN 57, creatinine 1.63, glucose 134, calcium 8.9. Vitamin D level is 25.9. Arterial blood gas done earlier today in the afternoon showed pH of 7.14, pCO2 of 36.6, pO2 of 358, ionized calcium of 1.21. Chest x-ray performed this afternoon post intubation, showed interval intubation. Persistent bilateral airspace disease suspicious for pneumonia and edema, as well as persistent cardiomegaly, pulmonary vascular congestion and pleural effusion suggestive of CHF. ASSESSMENT: 1. Hyperchloremia: This is most likely due to lab error. It is completely at variance with previous labs and repeat. 2. Hypokalemia noted initially: Most likely due to lab error. 3. Hyperkalemia: Noted on most recent lab, most likely due to supplementation and severe metabolic acidosis with potassium shift. 4. Severe metabolic acidosis: Due to circulatory shock related to congestive heart failure and possible pneumonia. 5. Chronic kidney disease, stage 3: Seems to be stable with possible mild reversible component. 6. Vitamin D deficiency. PLAN: We will start alkali therapy with sodium bicarbonate. We will however run this at a very slow rate, given pulmonary congestion. We will monitor electrolytes and address as indicated. Optimization of hemodynamics with possible inotropic will be deferred to the Cardiology Team and poker prop player. Many thanks for involving us in the care of this patient. We will follow along with you. Job ID: [id number]
--- NOTE | 2020-05-25 07:44 | PRG ---
DATE OF SERVICE: 05/25/2020 35 minutes critical care time. SUBJECTIVE: Events of yesterday were noted. The patient is currently intubated on mechanical ventilation. OBJECTIVE: VITAL SIGNS: Temperature 97.5, pulse 58, blood pressure 114/61. He has been weaned off the Levophed drip. He had a total of 2866 in yesterday and 815 out. NEUROLOGICAL: He will not wake up and follow commands, but will withdraw to pain in all extremities. HEENT: Otherwise unremarkable. NECK: No JVD. LUNGS: Tachypneic. Crackles bilaterally. CARDIOVASCULAR: S1, S2. Slightly bradycardic. ABDOMEN: Soft, obese. EXTREMITIES: He has a right groin femoral line. LABORATORY DATA: His sodium is 143, potassium 4.3, chloride 107, CO2 24, BUN 67, creatinine 2.4, glucose 126. ABG is pending. White blood cell count 13, hematocrit 30, platelet count 334. ASSESSMENT: 1. Post cardiopulmonary arrest. 2. Severe metabolic acidosis which seems to be corrected with bicarbonate drip. 3. Severe cardiomyopathy. 4. X-ray showing bilateral infiltrates, which likely indicates pulmonary edema or pneumonia as he has antibodies to COVID indicating he had COVID in the remote past. PLAN: 1. Check ABG as I think we can probably slow down his ventilator rate. 2. Continue bicarbonate infusion. 3. Prognosis very guarded at this point. Job ID: [id number]
[2020-05-25 07:45] LABS: Base Excess (BEa) 3.1 mEq/L (-2.0 to +3.0); Calcium, Ionized (arterial) 1.11 mmol/L (1.12-1.30); Carboxyhemoglobin (COHb) 0.3 gm% (0.0-3.0); Hemoglobin (Hb) 10.5 g/dL (14.0-18.0); O2 Tension (PaO2), arterial 61.4 mmHg (> 70.0); Potassium - ABG Lab 3.85 mmol/L (3.70-5.30)
[2020-05-25 07:57] LABS: ALV-art Gradient 192.425 mmHg (0-20); CO2 Tension 25.1 mmHg (35.0-45.0); Puncture Site RRA
[2020-05-25] MEDS ORDERED: Sodium Chloride 0.9% (PF) 10 ML VIAL FS PRN (08:15)
[2020-05-25] MEDS ORDERED: Sodium Bicarbonate 150 MEQ in Dextrose 5% in Water 1,000 ML IV SCH (08:30)
[2020-05-25] MEDS: Carvedilol 6.25 MG TAB PO SCH (08:41)
--- NOTE | 2020-05-25 09:04 | RAD ---
CHEST 1 VIEW: HISTORY: Ventilated patient. COMPARISON: Radiograph of prior day. FINDINGS: Extensive airspace consolidation. Endotracheal tube tip above the vidal 3 cm. Enteric tube tip bel ow the diaphragm out of the field of view. Heart size is enlarged. No acute osseous abnormality. IMPRESSION: No significant interval change of the chest. No improved lung aeration. Relative to a chest radiogr aph 1 week prior, findings are also not significantly improved. POS: HOME
[2020-05-25] MEDS: Apixaban 5 MG TAB PO SCH ×2 (10:04→20:20)
[2020-05-25] MEDS: Allopurinol 100 MG TAB PO SCH (10:04)
[2020-05-25] MEDS: Aspirin Chewable 81 MG TAB PO SCH (10:05)
[2020-05-25] MEDS: Dexamethasone 4 mg/ml Vial IVPB SCH (10:05)
[2020-05-25] MEDS: Pantoprazole 40 MG VIAL IVP SCH (10:05)
[2020-05-25 10:43] LABS: Creatinine, Urine 27.77 mg/dL (63-166); Protein, Urine Random Quant Less than 10 mg/dL (1-14); Sodium, Urine 75 mmol/L (Not Available); Urea Nitrogen, Random Urine 386 mg/dl
[2020-05-25 10:58] LABS: Bilirubin Negative (Negative); Blood, Urine 1+ (Negative); Clarity Clear (Clear); Glucose, Urine (Dipstick) Normal (Negative); Ketone, Urine Negative (Negative); Leukocyte 25 Leu/uL (Negative); Nitrite Negative (Negative); Protein, Urine (Dipstick) Negative (Neg-Trace); Specific Gravity, Urine 1.009 (1.002-1.036); Squamous Epithelial None Seen HPF (0-3); Urobilinogen Normal mg/dL (Less than 2)
[2020-05-25 11:02] LABS: Bacteria/HPF 1+ HPF (None Seen)
[2020-05-25 11:03] LABS: Urine Culture Reflex Yes Yes
[2020-05-25] MEDS: Sodium Chloride 0.9% 1,000 ML IV SCH (12:07)
--- NOTE | 2020-05-25 12:24 | PDOC.NEPPN ---
- Subjective Encounter Date: 05/25/20 Subjective: Seen and examined. Developed hypotension after intubation requiring pressors. BP has improved and pressor is off. - Objective Vital Signs & Weight: Vital Signs (12 hours) Temp Pulse Resp BP Pulse Ox 05/25/20 12:00 98.0 F 23 H 05/25/20 10:30 59 L 05/25/20 10:00 22 H 05/25/20 08:41 108/56 L 05/25/20 08:37 97.9 F 05/25/20 08:00 98 05/25/20 06:38 56 L 05/25/20 02:40 60 Weight Admit Weight 195 lb 3.408 oz Weight 90 lb 3.2 oz Most Recent Monitor Data Heart Rate from ECG 62 NIBP 104/51 NIBP BP-Mean 68 Respiration from ECG 26 SpO2 98 I&O: 05/24/20 05/25/20 05/26/20 06:59 06:59 06:59 Intake Total 1060 2866.9 316 Output Total 815 625 Balance 1060 2051.9 -309 Result Diagrams: 05/25/20 03:38 05/25/20 03:38 Additional Labs: Accuchecks 05/24/20 12:27 POC Glucose 133 H Nephrology ROS - Medication Medications: Active Medications Generic Name Dose Route Start Last Admin Trade Name Freq PRN Reason Stop Dose Admin Albuterol Sulfate 2 puff 05/24/20 01:00 05/25/20 06:38 Albuterol 200 Puff (6.7gm Inhaler) INH 2 puff [id number] STEPH Administration Allopurinol 100 mg 05/24/20 09:00 05/25/20 10:04 Allopurinol 100 Mg Tab PO 100 mg DAILY STEPH Administration Apixaban 5 mg 05/20/20 09:00 05/25/20 10:04 Apixaban 5 Mg Tab PO 5 mg BID STEPH Administration Aspirin 81 mg 05/25/20 09:00 05/25/20 10:05 Aspirin Chewable 81 Mg Tab PO 81 mg DAILY STEPH Administration Atorvastatin Calcium 40 mg 05/20/20 21:00 05/24/20 21:19 Atorvastatin Calcium 40 Mg Tab PO 40 mg HS STEPH Administration Carvedilol 6.25 mg 05/20/20 08:00 05/25/20 08:41 Carvedilol 6.25 Mg Tab PO Not Given BID- STEPH Dexamethasone 6 mg 05/21/20 09:00 05/25/20 10:05 Dexamethasone 4 Mg/Ml Vial IVPB 6 mg DAILY STEPH Administration Furosemide 40 mg 05/24/20 14:00 05/25/20 05:36 Furosemide 40 Mg/4 Ml Vial SLOW IVP 40 mg 0600,1400 STEPH Administration Cefepime HCl 1 gm/ Sodium 100 mls @ 200 mls/hr 05/23/20 17:00 05/25/20 05:36 Chloride IVPB 100 mls 0500,1700 STEPH Administration Doxycycline Hyclate 100 mg/ 100 mls @ 100 mls/hr 05/24/20 08:00 05/25/20 10:02 Sodium Chloride IVPB 100 mls 0800,2000 STEPH Administration Sodium Chloride 1,000 mls @ 10 mls/hr 05/25/20 11:45 05/25/20 12:07 Normal Saline 0.9% IV Not Given .Q24H STEPH Lorazepam 2 mg 05/24/20 13:30 05/24/20 17:36 Lorazepam 2 Mg/Ml Vial SLOW IVP 06/23/20 13:30 2 mg Q1H PRN Administration Breakthrough agitation Pantoprazole Sodium 40 mg 05/25/20 09:00 05/25/20 10:05 Pantoprazole 40 Mg Vial IVP 40 mg DAILY STEPH Administration Propofol 1,000 mg 05/24/20 13:30 05/25/20 04:32 Propofol 1,000 Mg/100 Ml Vial IV 06/23/20 13:30 1,000 mg INF PRN Administration TO ACHIEVE GOAL RASS Protocol Sodium Chloride 10 ml 05/20/20 09:00 05/25/20 10:05 Flush - Normal Saline 10 Ml Syringe IVF 10 ml Q12HR STEPH Administration Sodium Chloride 10 ml 05/20/20 02:30 05/20/20 17:44 Flush - Normal Saline 10 Ml Syringe IVF 10 ml PRN PRN Administration Saline Flush - Exam General - other findings: sedated and unresponsive ENT: normocephalic atraumatic ENT - other findings: ET and OG tubes are in place Respiratory - other findings: coarse ventilator transmitted sound noted Cardiovascular: RRR Extremities - other findings: bilateral feet fullness without overt edema Neurological - other findings: sedated and unresponsive Nephrology Results - Labs Result Diagrams: 05/25/20 03:38 05/25/20 03:38 Lab results: WBC 13.0 thou/uL (4.8-10.8) H 05/25/20 03:38 Hgb 9.5 g/dL (14.0-18.0) L 05/25/20 03:38 Hct 30.1 % (42.0-52.0) L 05/25/20 03:38 MCV 83.6 fL (78.0-98.0) 05/25/20 03:38 Plt Count 334 thou/uL (130-400) 05/25/20 03:38 Neutrophils % 81.7 % (42.0-75.0) H 05/25/20 03:38 Band Neuts % (Manual) 1 % (5-11) L 05/20/20 05:33 ABG pH 7.60 (7.35-7.45) H* 05/25/20 07:39 ABG pCO2 25.1 mmHg (35.0-45.0) L* 05/25/20 07:39 ABG pO2 61.4 mmHg (> 70.0) 05/25/20 07:39 VBG pH 7.42 (7.32-7.43) 05/24/20 06:30 VBG pCO2 30.9 mmHg (42.0-51.0) L 05/24/20 06:30 VBG pO2 65.3 mmHg (35.0-45.0) H 05/24/20 06:30 Sodium 143 mmol/L (136-145) 05/25/20 03:38 Potassium 4.3 mmol/L (3.5-5.1) 05/25/20 03:38 Chloride 107 mmol/L (98-107) 05/25/20 03:38 Carbon Dioxide 24 mmol/L (23-31) 05/25/20 03:38 BUN 67 mg/dL (8.4-25.7) H 05/25/20 03:38 Creatinine 2.35 mg/dL (0.7-1.3) H 05/25/20 03:38 Glucose 126 mg/dL (83-110) H 05/25/20 03:38 Lactic Acid 1.7 mmol/L (0.5-2.2) 05/20/20 01:52 Calcium 8.2 mg/dL (7.8-10.44) 05/25/20 03:38 Total Bilirubin 0.8 mg/dL (0.2-1.2) 05/23/20 16:22 AST 42 U/L (5-34) H 05/23/20 16:22 ALT 58 U/L (8-55) H 05/23/20 16:22 Alkaline Phosphatase 132 U/L (40-110) H 05/23/20 16:22 CK-MB (CK-2) 1.4 ng/mL (0-6.6) 05/19/20 20:40 Troponin I 0.245 ng/mL (< 0.028) H 05/20/20 02:37 C-Reactive Protein 12.35 mg/dL (= or < 0.5) H 05/24/20 04:48 B-Natriuretic Peptide 3710.8 pg/mL (0-100) H 05/23/20 16:22 Serum Total Protein 6.7 g/dL (5.8-8.1) 05/23/20 16:22 Albumin 2.2 g/dL (3.4-4.8) L 05/25/20 03:30 Lipase 4 U/L (8-78) L 05/24/20 04:48 Urine Ketones Negative mg/dL (Negative) 05/25/20 10:00 Urine Blood 1+ (Negative) A 05/25/20 10:00 Urine Nitrite Negative (Negative) 05/25/20 10:00 Ur Leukocyte Esterase 25 Arlene/uL (Negative) A 05/25/20 10:00 Urine RBC 11-20 HPF (0-3) A 05/25/20 10:00 Urine WBC 7-10 HPF (0-3) A 05/25/20 10:00 Ur Squamous Epith Cells None Seen HPF (0-3) 05/25/20 10:00 Urine Bacteria 1+ HPF (None Seen) A 05/25/20 10:00 Sodium 143 mmol/L (136-145) 05/25/20 03:38 Potassium 4.3 mmol/L (3.5-5.1) 05/25/20 03:38 Chloride 107 mmol/L (98-107) 05/25/20 03:38 Carbon Dioxide 24 mmol/L (23-31) 05/25/20 03:38 Anion Gap 16 mmol/L (10-20) 05/25/20 03:38 BUN 67 mg/dL (8.4-25.7) H 05/25/20 03:38 Creatinine 2.35 mg/dL (0.7-1.3) H 05/25/20 03:38 Glucose 126 mg/dL (83-110) H 05/25/20 03:38 Calcium 8.2 mg/dL (7.8-10.44) 05/25/20 03:38 Phosphorus 2.5 mg/dL (2.3-4.7) 05/24/20 04:48 Phosphorus Cancelled 05/24/20 04:48 Albumin 2.2 g/dL (3.4-4.8) L 05/25/20 03:30 Nephrology AP PN - Plan MATT: Due to hemodynamic factors related to hypotension, cardiac decompensation and diuretics/RAAS [place] CKD 3. Hyperkalemia: Resolved. Metabolic acidosis: Resolved with alkali therapy Metabolic alkalosis: ? Volume contration. Hypoalbuminemia Acute respiratory failure requiring intubation Cardiomyopathy PLAN DC alkali therapy Give albumin. Hold diuretic therapy. Entresto held. Get urine electrolytes and Urinalysis. Follow electrolytes and renal function
[2020-05-25] MEDS: Albumin 25% 25 GM/100 ML BOT IVPB SCH ×2 (13:28→20:30)
--- NOTE | 2020-05-25 15:35 | PDOC.HOSPP ---
- Subjective Encounter Date: 05/25/20 Encounter Time: 10:45 Subjective: is sedated, on vent - Objective Vital Signs & Weight: Vital Signs (12 hours) Temp Pulse Resp BP Pulse Ox 05/25/20 14:38 57 L 05/25/20 13:54 25 H 05/25/20 12:00 98.0 F 23 H 05/25/20 10:30 59 L 05/25/20 10:00 22 H 05/25/20 08:41 108/56 L 05/25/20 08:37 97.9 F 05/25/20 08:00 98 05/25/20 06:38 56 L Weight Admit Weight 195 lb 3.408 oz Weight 90 lb 3.2 oz Most Recent Monitor Data Heart Rate from ECG 64 NIBP 86/53 NIBP BP-Mean 64 Respiration from ECG 29 SpO2 100 I&O: 05/24/20 05/25/20 05/26/20 06:59 06:59 06:59 Intake Total 1060 2866.9 416 Output Total 815 895 Balance 1060 2051.9 -479 Result Diagrams: 05/25/20 03:38 05/25/20 03:38 Hospitalist ROS - Medication Medications: Active Medications Generic Name Dose Route Start Last Admin Trade Name Freq PRN Reason Stop Dose Admin Albumin Human 25 gm 05/25/20 12:00 05/25/20 13:28 Albumin 25% 25 Gm/100 Ml Bot IVPB 05/25/20 20:01 25 gm 0400,1200,2000 STEPH Administration Albuterol Sulfate 2 puff 05/24/20 01:00 05/25/20 13:15 Albuterol 200 Puff (6.7gm Inhaler) INH 2 puff [id number] STEPH Administration Allopurinol 100 mg 05/24/20 09:00 05/25/20 10:04 Allopurinol 100 Mg Tab PO 100 mg DAILY STEPH Administration Apixaban 5 mg 05/20/20 09:00 05/25/20 10:04 Apixaban 5 Mg Tab PO 5 mg BID STEPH Administration Aspirin 81 mg 05/25/20 09:00 05/25/20 10:05 Aspirin Chewable 81 Mg Tab PO 81 mg DAILY STEPH Administration Atorvastatin Calcium 40 mg 05/20/20 21:00 05/24/20 21:19 Atorvastatin Calcium 40 Mg Tab PO 40 mg HS STEPH Administration Carvedilol 6.25 mg 05/20/20 08:00 05/25/20 08:41 Carvedilol 6.25 Mg Tab PO Not Given BID-WM STEPH Dexamethasone 6 mg 05/21/20 09:00 05/25/20 10:05 Dexamethasone 4 Mg/Ml Vial IVPB 6 mg DAILY STEPH Administration Furosemide 40 mg 05/24/20 14:00 05/25/20 05:36 Furosemide 40 Mg/4 Ml Vial SLOW IVP 40 mg 0600,1400 STEPH Administration Cefepime HCl 1 gm/ Sodium 100 mls @ 200 mls/hr 05/23/20 17:00 05/25/20 05:36 Chloride IVPB 100 mls 0500,1700 STEPH Administration Doxycycline Hyclate 100 mg/ 100 mls @ 100 mls/hr 05/24/20 08:00 05/25/20 10:02 Sodium Chloride IVPB 100 mls 0800,2000 STEPH Administration Sodium Chloride 1,000 mls @ 10 mls/hr 05/25/20 11:45 05/25/20 12:07 Normal Saline 0.9% IV Not Given .Q24H STEPH Lorazepam 2 mg 05/24/20 13:30 05/24/20 17:36 Lorazepam 2 Mg/Ml Vial SLOW IVP 06/23/20 13:30 2 mg Q1H PRN Administration Breakthrough agitation Pantoprazole Sodium 40 mg 05/25/20 09:00 05/25/20 10:05 Pantoprazole 40 Mg Vial IVP 40 mg DAILY STEPH Administration Propofol 1,000 mg 05/24/20 13:30 05/25/20 04:32 Propofol 1,000 Mg/100 Ml Vial IV 06/23/20 13:30 1,000 mg INF PRN Administration TO ACHIEVE GOAL RASS Protocol Sodium Chloride 10 ml 05/20/20 09:00 05/25/20 10:05 Flush - Normal Saline 10 Ml Syringe IVF 10 ml Q12HR STEPH Administration Sodium Chloride 10 ml 05/20/20 02:30 05/20/20 17:44 Flush - Normal Saline 10 Ml Syringe IVF 10 ml PRN PRN Administration Saline Flush Hospitalist Exam Vitals: Vital Signs (12 hours) Temp Pulse Resp BP Pulse Ox 05/25/20 14:38 57 L 05/25/20 13:54 25 H 05/25/20 12:00 98.0 F 23 H 05/25/20 10:30 59 L 05/25/20 10:00 22 H 05/25/20 08:41 108/56 L 05/25/20 08:37 97.9 F 05/25/20 08:00 98 05/25/20 06:38 56 L Weight Admit Weight 195 lb 3.408 oz Weight 90 lb 3.2 oz Most Recent Monitor Data Heart Rate from ECG 64 NIBP 86/53 NIBP BP-Mean 64 Respiration from ECG 29 SpO2 100 General Appearance: ill appearing Eye: PERRL, anicteric sclera ENT: no oropharyngeal lesions, moist mucosa Neck: supple, no JVD Heart: RRR, no murmur Respiratory: no wheezes, rales Gastrointestinal: soft, non-tender, non-distended, normal bowel sounds Extremities: no cyanosis, 1+ LE edema Neurological: cranial nerve grossly intact, no focal deficits Hosp A/P (1) Acute respiratory failure with hypoxia and hypercarbia Code(s): J96.01 - ACUTE RESPIRATORY FAILURE WITH HYPOXIA; J96.02 - ACUTE RESPIRATORY FAILURE WITH HYPERCAPNIA Status: Acute (2) Acute on chronic systolic (congestive) heart failure Code(s): I50.23 - ACUTE ON CHRONIC SYSTOLIC (CONGESTIVE) HEART FAILURE Status: Acute (3) Pneumonia Code(s): J18.9 - PNEUMONIA, UNSPECIFIED ORGANISM Status: Acute Qualifiers: Pneumonia type: due to unspecified organism (4) Nonischemic cardiomyopathy Code(s): I42.8 - OTHER CARDIOMYOPATHIES Status: Chronic (5) Atrial fibrillation Code(s): I48.91 - UNSPECIFIED ATRIAL FIBRILLATION Status: Chronic Qualifiers: Atrial fibrillation type: paroxysmal (6) GERD (gastroesophageal reflux disease) Code(s): K21.9 - GASTRO-ESOPHAGEAL REFLUX DISEASE WITHOUT ESOPHAGITIS Status: Chronic Qualifiers: Esophagitis presence: without esophagitis Qualified Code(s): K21.9 - Gastro-esophageal reflux disease without esophagitis (7) Hyperlipidemia Code(s): E78.5 - HYPERLIPIDEMIA, UNSPECIFIED Status: Chronic Qualifiers: (8) Hypertension Code(s): I10 - ESSENTIAL (PRIMARY) HYPERTENSION Status: Chronic Qualifiers: (9) Schizophrenia Code(s): F20.9 - SCHIZOPHRENIA, UNSPECIFIED Status: Chronic Qualifiers: Schizophrenia type: unspecified Qualified Code(s): F20.9 - Schizophrenia, unspecified (10) Type 2 diabetes mellitus Status: Chronic Qualifiers: Diabetes mellitus continuous churn buttermaker insulin use: without long-term use (11) Hypocalcemia Code(s): E83.51 - HYPOCALCEMIA Status: Resolved (12) Hypokalemia Code(s): E87.6 - HYPOKALEMIA Status: Resolved - Plan is off levophed drip, heart rate in the 50's, off bicarb drip, rate is 16 on vent this am. he got intubated on 05/24 poor prognosis, has multiple med issues including non compliance and underlying schizoaffective disorder. Unclear if he has sustained anoxic brain injury. contnue diuresis as tolerated with close monitoring of electrolytes prior ef of 15%, likely is noncomplaint? has nearly 6 covid pcr testing done all of which have been -ve, is presumed to have had covid with pulm infiltrates/fibrosis, on dexamethasone per ID advice. continue eliquis, asp, lipitor, cefepime and doxy. has chronic lung changes with current volume overload. I have give complete updates to his sister over phone 05/20, 05/21, 05/22, 05/23, 05/24, she is aware of poor prognosis, code status was discussed with her, wants him to be full code (05/22). political worker is trying to find if he has any children who are in touch with him for next of kin, per sister he has many but none are in touch with him, they both live together and help each other.
[2020-05-25] MEDS: Carvedilol 3.125 MG TAB PO SCH (17:01)
[2020-05-25] MEDS: Atorvastatin Calcium 40 MG TAB PO SCH (20:20)
[2020-05-25] MEDS ORDERED: Fentanyl CADD 100 ML ONE (21:12)
[2020-05-25] MEDS: Fentanyl CADD 100 ML IV SCH (21:22)
[2020-05-26] MEDS: Albuterol 200 PUFF (6.7GM INHALER) INH SCH ×5 (01:00→18:42)
[2020-05-26] MEDS: Propofol 1,000 MG/100 ML VIAL IV PRN (01:18)
[2020-05-26 03:27] LABS: #Lymphocytes 0.9 thou/uL (1.20-3.40); #Monocytes 0.9 thou/uL (0.11-0.59); #Neutrophils 9.6 thou/uL (1.40-6.50); %Basophils 0.1 % (0.0-1.0); %Eosinophils 0.1 % (0.0-10.0); %Lymphocytes 7.8 % (21.0-51.0); %Monocytes 8.2 % (0.0-10.0); %Neutrophils 83.9 % (42.0-75.0); Hemoglobin 8.8 g/dL (14.0-18.0); Mean Corpuscular HGB CONC 33.1 g/dL (32.0-36.0); Mean Corpuscular Volume 84.8 fL (78.0-98.0); Mean Platelet Volume 7.6 fL (7.4-10.4); Platelet Count 278 thou/uL (130-400); RBC Distribution Width 14.8 % (11.5-14.5); Red Blood Cell (RBC) Count 3.15 mill/uL (4.70-6.10); White Blood Cell (WBC) Count 11.4 thou/uL (4.8-10.8)
[2020-05-26 03:39] LABS: Anion Gap 14 mmol/L (10-20); BUN (Urea Nitrogen) 73 mg/dL (8.4-25.7); Calc. Creatinine Clearance 13 mL/min (70-130); Calcium 8.6 mg/dL (7.8-10.44); Carbon Dioxide 25 mmol/L (23-31); Chloride 108 mmol/L (98-107); Glucose 120 mg/dL (83-110); Potassium 4.2 mmol/L (3.5-5.1); Sodium 143 mmol/L (136-145)
[2020-05-26] MEDS: Cefepime 1 GM in Sodium Chloride 0.9% 100 ML IVPB SCH ×2 (05:22→16:25)
[2020-05-26 06:55] LABS: Actual Bicarbonate (HCO3a) 26.4 mEq/L (22-28); Base Excess (BEa) 2.5 mEq/L (-2.0 to +3.0); CO2 Tension 38.2 mmHg (35.0-45.0); Calcium, Ionized (arterial) 1.13 mmol/L (1.12-1.30); Carboxyhemoglobin (COHb) 0.5 gm% (0.0-3.0); Hemoglobin (Hb) 9.6 g/dL (14.0-18.0); O2 Tension (PaO2), arterial 65.5 mmHg (> 70.0); Potassium - ABG Lab 4.13 mmol/L (3.70-5.30); pH, Arterial 7.46 (7.35-7.45)
[2020-05-26] MEDS ORDERED: Albumin 25% 25 GM/100 ML BOT IVPB SCH (06:59)
[2020-05-26 07:00] LABS: Puncture Site RRA
[2020-05-26] MEDS: Furosemide 40 MG/4 ML VIAL SLOW IVP SCH (07:35)
[2020-05-26] MEDS ORDERED: guaiFENesin 100 MG/5 ML UDCUP PER TUBE SCH (09:00)
[2020-05-26] MEDS: Metoclopramide HCl 10 MG/2 ML VIAL IVP SCH ×3 (09:34→20:20)
[2020-05-26] MEDS: Pantoprazole 40 MG VIAL IVP SCH (09:34)
[2020-05-26] MEDS: Allopurinol 100 MG TAB PO SCH (09:35)
[2020-05-26] MEDS: Aspirin Chewable 81 MG TAB PO SCH (09:35)
[2020-05-26] MEDS: Apixaban 5 MG TAB PO SCH (09:35)
[2020-05-26] MEDS: Carvedilol 3.125 MG TAB PO SCH ×2 (09:35→16:25)
[2020-05-26] MEDS: GUAIFENESIN SF SOLN 200 MG/10 ML UDCUP PER TUBE SCH ×2 (10:02→20:20)
--- NOTE | 2020-05-26 10:40 | PDOC.NEPPN ---
- Subjective Encounter Date: 05/26/20 Subjective: Seen and examined. Still intubated. Urine output improved greatly with albumin infusion - Objective Vital Signs & Weight: Vital Signs (12 hours) Temp Pulse Resp Pulse Ox 05/26/20 08:00 25 H 98 05/26/20 07:01 61 05/26/20 07:00 98.4 F 05/26/20 05:51 18 05/26/20 04:00 98.7 F 21 H 05/26/20 03:08 57 L 05/26/20 02:00 15 05/26/20 00:00 97.6 F 05/25/20 23:59 16 05/25/20 23:00 97.7 F Weight Admit Weight 195 lb 3.408 oz Weight 89 lb Most Recent Monitor Data Heart Rate from ECG 60 NIBP 112/57 NIBP BP-Mean 75 Respiration from ECG 13 SpO2 94 I&O: 05/25/20 05/26/20 05/27/20 06:59 06:59 06:59 Intake Total 2866.9 1923 Output Total 815 2020 250 Balance 2051.9 -97 -250 Result Diagrams: 05/26/20 03:05 05/26/20 03:05 Nephrology ROS - Medication Medications: Active Medications Generic Name Dose Route Start Last Admin Trade Name Freq PRN Reason Stop Dose Admin Albuterol Sulfate 2 puff 05/24/20 01:00 05/26/20 07:01 Albuterol 200 Puff (6.7gm Inhaler) INH 2 puff [id number] STEPH Administration Allopurinol 100 mg 05/24/20 09:00 05/26/20 09:35 Allopurinol 100 Mg Tab PO 100 mg DAILY STE[facility] Administration Apixaban 5 mg 05/20/20 09:00 05/26/20 09:35 Apixaban 5 Mg Tab PO 5 mg BID STEPH Administration Aspirin 81 mg 05/25/20 09:00 05/26/20 09:35 Aspirin Chewable 81 Mg Tab PO 81 mg DAILY STE[facility] Administration Atorvastatin Calcium 40 mg 05/20/20 21:00 05/25/20 20:20 Atorvastatin Calcium 40 Mg Tab PO 40 mg HS STEPH Administration Carvedilol 3.125 mg 05/25/20 17:00 05/26/20 09:35 Carvedilol 3.125 Mg Tab PO Not Given BID-WM STEPH Furosemide 40 mg 05/24/20 14:00 05/26/20 07:35 Furosemide 40 Mg/4 Ml Vial SLOW IVP Not Given 0600,1400 STE[facility] Guaifenesin 600 mg 05/26/20 21:00 05/26/20 10:02 Guaifenesin Sf Soln 200 Mg/10 Ml Udcup PER TUBE 600 mg BID STEPH Administration Cefepime HCl 1 gm/ Sodium 100 mls @ 200 mls/hr 05/23/20 17:00 05/26/20 05:22 Chloride IVPB 100 mls 0500,1700 STE[facility] Administration Doxycycline Hyclate 100 mg/ 100 mls @ 100 mls/hr 05/24/20 08:00 05/26/20 09:34 Sodium Chloride IVPB 100 mls 0800,2000 STE[facility] Administration Fentanyl 100 mls @ 0 mls/hr 05/24/20 13:30 05/25/20 21:22 Fentanyl Cadd IV 06/23/20 13:30 100 mls INF STEPH Administration Protocol Per Protocol Sodium Chloride 1,000 mls @ 10 mls/hr 05/25/20 11:45 05/25/20 12:07 Normal Saline 0.9% IV Not Given .Q24H STE[facility] Lorazepam 2 mg 05/24/20 13:30 05/24/20 17:36 Lorazepam 2 Mg/Ml Vial SLOW IVP 06/23/20 13:30 2 mg Q1H PRN Administration Breakthrough agitation Metoclopramide HCl 10 mg 05/26/20 07:30 05/26/20 09:34 Metoclopramide Hcl 10 Mg/2 Ml Vial IVP 10 mg Q6H STE[facility] Administration Pantoprazole Sodium 40 mg 05/25/20 09:00 05/26/20 09:34 Pantoprazole 40 Mg Vial IVP 40 mg DAILY STE[facility] Administration Propofol 1,000 mg 05/24/20 13:30 05/26/20 01:18 Propofol 1,000 Mg/100 Ml Vial IV 06/23/20 13:30 1,000 mg INF PRN Administration TO ACHIEVE GOAL RASS Protocol Sodium Chloride 10 ml 05/20/20 09:00 05/26/20 09:35 Flush - Normal Saline 10 Ml Syringe IVF 10 ml Q12HR STEPH Administration Sodium Chloride 10 ml 05/20/20 02:30 05/20/20 17:44 Flush - Normal Saline 10 Ml Syringe IVF 10 ml PRN PRN Administration Saline Flush - Exam General - other findings: sedated Eye: anicteric sclera ENT: normocephalic atraumatic ENT - other findings: ET tube in place Respiratory - other findings: ventilator transmitted sound noted Cardiovascular: RRR Gastrointestinal: soft, non-distended, normal bowel sounds Gastrointestinal - other findings: Keita catheter in place Extremities - other findings: bilateral feet fullness but no overt edema Neurological - other findings: sedated Nephrology Results - Labs Result Diagrams: 05/26/20 03:05 05/26/20 03:05 Lab results: WBC 11.4 thou/uL (4.8-10.8) H 05/26/20 03:05 Hgb 8.8 g/dL (14.0-18.0) L 05/26/20 03:05 Hct 26.7 % (42.0-52.0) L 05/26/20 03:05 MCV 84.8 fL (78.0-98.0) 05/26/20 03:05 Plt Count 278 thou/uL (130-400) 05/26/20 03:05 Neutrophils % 83.9 % (42.0-75.0) H 05/26/20 03:05 Band Neuts % (Manual) 1 % (5-11) L 05/20/20 05:33 ABG pH 7.46 (7.35-7.45) H 05/26/20 06:49 ABG pCO2 38.2 mmHg (35.0-45.0) 05/26/20 06:49 ABG pO2 65.5 mmHg (> 70.0) 05/26/20 06:49 VBG pH 7.42 (7.32-7.43) 05/24/20 06:30 VBG pCO2 30.9 mmHg (42.0-51.0) L 05/24/20 06:30 VBG pO2 65.3 mmHg (35.0-45.0) H 05/24/20 06:30 Sodium 143 mmol/L (136-145) 05/26/20 03:05 Potassium 4.2 mmol/L (3.5-5.1) 05/26/20 03:05 Chloride 108 mmol/L (98-107) H 05/26/20 03:05 Carbon Dioxide 25 mmol/L (23-31) 05/26/20 03:05 BUN 73 mg/dL (8.4-25.7) H 05/26/20 03:05 Creatinine 2.74 mg/dL (0.7-1.3) H 05/26/20 03:05 Glucose 120 mg/dL (83-110) H 05/26/20 03:05 Lactic Acid 1.7 mmol/L (0.5-2.2) 05/20/20 01:52 Calcium 8.6 mg/dL (7.8-10.44) 05/26/20 03:05 Total Bilirubin 0.8 mg/dL (0.2-1.2) 05/23/20 16:22 AST 42 U/L (5-34) H 05/23/20 16:22 ALT 58 U/L (8-55) H 05/23/20 16:22 Alkaline Phosphatase 132 U/L (40-110) H 05/23/20 16:22 CK-MB (CK-2) 1.4 ng/mL (0-6.6) 05/19/20 20:40 Troponin I 0.245 ng/mL (< 0.028) H 05/20/20 02:37 C-Reactive Protein 12.35 mg/dL (= or < 0.5) H 05/24/20 04:48 B-Natriuretic Peptide 3710.8 pg/mL (0-100) H 05/23/20 16:22 Serum Total Protein 6.7 g/dL (5.8-8.1) 05/23/20 16:22 Albumin 2.8 g/dL (3.4-4.8) L 05/26/20 03:05 Lipase 4 U/L (8-78) L 05/24/20 04:48 Urine Ketones Negative mg/dL (Negative) 05/25/20 10:00 Urine Blood 1+ (Negative) A 05/25/20 10:00 Urine Nitrite Negative (Negative) 05/25/20 10:00 Ur Leukocyte Esterase 25 Arlene/uL (Negative) A 05/25/20 10:00 Urine RBC 11-20 HPF (0-3) A 05/25/20 10:00 Urine WBC 7-10 HPF (0-3) A 05/25/20 10:00 Ur Squamous Epith Cells None Seen HPF (0-3) 05/25/20 10:00 Urine Bacteria 1+ HPF (None Seen) A 05/25/20 10:00 Sodium 143 mmol/L (136-145) 05/26/20 03:05 Potassium 4.2 mmol/L (3.5-5.1) 05/26/20 03:05 Chloride 108 mmol/L (98-107) H 05/26/20 03:05 Carbon Dioxide 25 mmol/L (23-31) 05/26/20 03:05 Anion Gap 14 mmol/L (10-20) 05/26/20 03:05 BUN 73 mg/dL (8.4-25.7) H 05/26/20 03:05 Creatinine 2.74 mg/dL (0.7-1.3) H 05/26/20 03:05 Glucose 120 mg/dL (83-110) H 05/26/20 03:05 Calcium 8.6 mg/dL (7.8-10.44) 05/26/20 03:05 Phosphorus 2.5 mg/dL (2.3-4.7) 05/24/20 04:48 Phosphorus Cancelled 05/24/20 04:48 Albumin 2.8 g/dL (3.4-4.8) L 05/26/20 03:05 Nephrology AP PN - Plan MATT: Due to hemodynamic factors related to hypotension, cardiac decompensation and diuretics/RAAS [place]. Creat continues to trend up. Recieved lasix yesterday morning. Cardiorenal syndrome remained a concern. CKD 3. Hyperkalemia: Resolved. Metabolic acidosis: Resolved with alkali therapy Metabolic alkalosis: Due to Volume contraction. Resolved with albumin. Hypoalbuminemia Acute respiratory failure requiring intubation Cardiomyopathy with EF of 15% Pulmonary infiltrates. ? Pulmonaray edema from CHF vs infective process. Has remained afebrile and Covid remained negative. Normal procalcitonin makes pulmonary congestion from CHF exacerbation more likely PLAN Give another dose of albumin. Continue to hold diuretic therapy as urine output has improved greatly. Avoid all overt and potentially nephrotic agents including Entresto. Will make a case for ionotropic agent if creat continue to trend up by tomorrow and pulmonary infiltrates persist Get urine electrolytes and Urinalysis Follow electrolytes and renal function
[2020-05-26] MEDS: Sodium Chloride 0.9% 1,000 ML IV SCH (13:31)
--- NOTE | 2020-05-26 15:46 | PDOC.CPN ---
- Subjective Date: 05/26/20 Time: 15:44 Interval history: Remains sedated and intubated. - Review of Systems ROS unobtainable: due to endotracheal tube - Objective Allergies/Adverse Reactions: Allergies Allergy/AdvReac Type Severity Reaction Status Date / Time No Known Allergies Allergy Verified 02/13/20 12:31 Visit Medications: Current Medications Acetaminophen (Acetaminophen 325 Mg Tab) 650 mg PO Q4H PRN PRN Reason: Headache/Fever/Mild Pain (1-3) Acetaminophen (Acetaminophen 650 Mg Suppository) 650 mg DC Q4H PRN PRN Reason: Headache/Fever/Mild Pain (1-3) Albuterol Sulfate (Albuterol 200 Puff (6.7gm Inhaler)) 2 puff INH [id number] [facility] Last Admin: 05/26/20 13:00 Dose: 2 puff Documented by: Allopurinol (Allopurinol 100 Mg Tab) 100 mg PO DAILY [facility] Last Admin: 05/26/20 09:35 Dose: 100 mg Documented by: Apixaban (Apixaban 5 Mg Tab) 5 mg PO BID [facility] Last Admin: 05/26/20 09:35 Dose: 5 mg Documented by: Aspirin (Aspirin Chewable 81 Mg Tab) 81 mg PO DAILY [facility] Last Admin: 05/26/20 09:35 Dose: 81 mg Documented by: Atorvastatin Calcium (Atorvastatin Calcium 40 Mg Tab) 40 mg PO HS [facility] Last Admin: 05/25/20 20:20 Dose: 40 mg Documented by: Calcium Carbonate (Calcium Carbonate 500 Mg Chewtab) 1,000 mg PO Q4H PRN PRN Reason: Heartburn or Indigestion Carvedilol (Carvedilol 3.125 Mg Tab) 3.125 mg PO BID-WM [facility] Last Admin: 05/26/20 09:35 Dose: Not Given Documented by: Furosemide (Furosemide 40 Mg/4 Ml Vial) 40 mg SLOW IVP 0600,1400 [facility] Last Admin: 05/26/20 07:35 Dose: Not Given Documented by: Guaifenesin (Guaifenesin Sf Soln 200 Mg/10 Ml Udcup) 600 mg PER TUBE BID [facility] Last Admin: 05/26/20 10:02 Dose: 600 mg Documented by: Cefepime HCl 1 gm/ Sodium (Chloride) 100 mls @ 200 mls/hr IVPB 0500,1700 [facility] Last Admin: 05/26/20 05:22 Dose: 100 mls Documented by: Doxycycline Hyclate 100 mg/ (Sodium Chloride) 100 mls @ 100 mls/hr IVPB 0800,2000 [facility] Last Admin: 05/26/20 09:34 Dose: 100 mls Documented by: Fentanyl (Fentanyl Cadd) 100 mls @ 0 mls/hr IV INF [facility]; Protocol Stop: 06/23/20 13:30 Last Admin: 05/25/20 21:22 Dose: 100 mls Documented by: Fentanyl Citrate (Fentanyl Bolus) 250 mls @ 0 mls/hr IVPB PRN PRN PRN Reason: Breakthrough pain/agitation Stop: 06/23/20 13:30 Sodium Chloride (Normal Saline 0.9%) 1,000 mls @ 10 mls/hr IV .Q24H [facility] Last Admin: 05/26/20 13:31 Dose: Not Given Documented by: Lorazepam (Lorazepam 2 Mg/Ml Vial) 2 mg SLOW IVP Q1H PRN PRN Reason: Breakthrough agitation Stop: 06/23/20 13:30 Last Admin: 05/24/20 17:36 Dose: 2 mg Documented by: Metoclopramide HCl (Metoclopramide Hcl 10 Mg/2 Ml Vial) 10 mg IVP Q6H [facility] Last Admin: 05/26/20 13:31 Dose: 10 mg Documented by: Miscellaneous Medication (Electrolyte Replacement Protocol) 0 each FS ASDIR PRN; Protocol PRN Reason: ELECTROLYTE REPLACEMENT Morphine Sulfate (Morphine 2 Mg/Ml Vial) 2 mg SLOW IVP Q1H PRN PRN Reason: Breakthrough Pain/Agitation Stop: 06/23/20 13:30 Pantoprazole Sodium (Pantoprazole 40 Mg Vial) 40 mg IVP DAILY [facility] Last Admin: 05/26/20 09:34 Dose: 40 mg Documented by: Propofol (Propofol 1,000 Mg/100 Ml Vial) 1,000 mg IV INF PRN; Protocol PRN Reason: TO ACHIEVE GOAL RASS Stop: 06/23/20 13:30 Last Admin: 05/26/20 01:18 Dose: 1,000 mg Documented by: Propofol (Propofol Bolus 1,000 Mg/100 Ml Vial) 20 mg IV Q5MIN PRN PRN Reason: BREAKTHROUGH AGITATION Stop: 06/23/20 13:30 Sodium Chloride (Flush - Normal Saline 10 Ml Syringe) 10 ml IVF Q12HR [facility] Last Admin: 05/26/20 09:35 Dose: 10 ml Documented by: Sodium Chloride (Flush - Normal Saline 10 Ml Syringe) 10 ml IVF PRN PRN PRN Reason: Saline Flush Last Admin: 05/20/20 17:44 Dose: 10 ml Documented by: Sodium Chloride (Sodium Chloride 0.9% (Pf) 10 Ml Vial) 10 ml FS PRN PRN PRN Reason: RECONSTITUTION Vital Signs & Weight: Vital Signs Temp Pulse Pulse Resp BP Pulse Ox 05/26/20 14:54 60 05/26/20 12:00 98.8 F 19 05/26/20 10:44 66 05/26/20 10:00 22 H 05/26/20 09:35 61 112/60 05/26/20 08:00 25 H 98 05/26/20 07:01 61 05/26/20 07:00 98.4 F 05/26/20 05:51 18 05/26/20 04:00 98.7 F 21 H Admit Weight 195 lb 3.408 oz Weight 89 lb - Physical Exam General: other (S/I) HEENT: normocephaly Neck: supple neck Cardiac: regular rate and rhythm Lungs: clear to auscultation Neuro: no lateralizing findings Abdomen: active bowel sounds Extremities: no edema Skin: clear Musculoskeletal: normal range of motion - Labs Result Diagrams: 05/26/20 03:05 05/26/20 03:05 Troponin/CKMB CK-MB (CK-2) 1.4 ng/mL (0-6.6) 05/19/20 20:40 Troponin I 0.245 ng/mL (< 0.028) H 05/20/20 02:37 - Telemetry Sinus rhythms and dysrhythmias: sinus rhythm - Assessment/Plan Assessment/Plan: 1. Post Cardiopulomnary arrest 2. Non ischemic CM EF at 15-20% 3. Likely late COVID -19 infection presentation 4. Paroxysmal afib PLAN - Continue supportive care. - Poor terminal carman prognosis.
--- NOTE | 2020-05-26 15:56 | RAD ---
RADIOGRAPH CHEST 1 VIEW: DATE: 05/26/2020 TIME: 5:09 AM HISTORY: 75-year-old male in respiratory distress COMPARISON: 05/25/2020 FINDINGS: Endotracheal tube and esophagogastric tube. Diffuse bilateral mixed interstitial alveolar infiltrates. No interval change. IMPRESSION: No interval change in extensive infiltrates
--- NOTE | 2020-05-26 16:45 | PDOC.HOSPP ---
- Subjective Encounter Date: 05/26/20 Encounter Time: 08:00 Subjective: sedated, on vent - Objective Vital Signs & Weight: Vital Signs (12 hours) Temp Pulse Pulse Resp BP Pulse Ox 05/26/20 14:54 60 05/26/20 12:00 98.8 F 19 05/26/20 10:44 66 05/26/20 10:00 22 H 05/26/20 09:35 61 112/60 05/26/20 08:00 25 H 98 05/26/20 07:01 61 05/26/20 07:00 98.4 F 05/26/20 05:51 18 Weight Admit Weight 195 lb 3.408 oz Weight 89 lb Most Recent Monitor Data Heart Rate from ECG 62 NIBP 104/59 NIBP BP-Mean 74 Respiration from ECG 18 SpO2 100 I&O: 05/25/20 05/26/20 05/27/20 06:59 06:59 06:59 Intake Total 2866.9 1923 Output Total 815 2020 525 Balance 2051.9 -97 -525 Result Diagrams: 05/26/20 03:05 05/26/20 03:05 Hospitalist ROS - Medication Medications: Active Medications Generic Name Dose Route Start Last Admin Trade Name Freq PRN Reason Stop Dose Admin Albuterol Sulfate 2 puff 05/24/20 01:00 05/26/20 13:00 Albuterol 200 Puff (6.7gm Inhaler) INH 2 puff [id number] STEPH Administration Allopurinol 100 mg 05/24/20 09:00 05/26/20 09:35 Allopurinol 100 Mg Tab PO 100 mg DAILY [facility] Administration Aspirin 81 mg 05/25/20 09:00 05/26/20 09:35 Aspirin Chewable 81 Mg Tab PO 81 mg DAILY [facility] Administration Atorvastatin Calcium 40 mg 05/20/20 21:00 05/25/20 20:20 Atorvastatin Calcium 40 Mg Tab PO 40 mg HS STE[facility] Administration Carvedilol 3.125 mg 05/25/20 17:00 05/26/20 16:25 Carvedilol 3.125 Mg Tab PO Not Given BID-WM STEPH Furosemide 40 mg 05/24/20 14:00 05/26/20 07:35 Furosemide 40 Mg/4 Ml Vial SLOW IVP Not Given 0600,1400 [facility] Guaifenesin 600 mg 05/26/20 21:00 05/26/20 10:02 Guaifenesin Sf Soln 200 Mg/10 Ml Udcup PER TUBE 600 mg BID [facility]PH Administration Cefepime HCl 1 gm/ Sodium 100 mls @ 200 mls/hr 05/23/20 17:00 05/26/20 16:25 Chloride IVPB 100 mls 0500,1700 [facility] Administration Doxycycline Hyclate 100 mg/ 100 mls @ 100 mls/hr 05/24/20 08:00 05/26/20 09:34 Sodium Chloride IVPB 100 mls 0800,2000 [facility] Administration Fentanyl 100 mls @ 0 mls/hr 05/24/20 13:30 05/25/20 21:22 Fentanyl Cadd IV 06/23/20 13:30 100 mls INF [facility] Administration Protocol Per Protocol Sodium Chloride 1,000 mls @ 10 mls/hr 05/25/20 11:45 05/26/20 13:31 Normal Saline 0.9% IV Not Given .Q24H [facility] Lorazepam 2 mg 05/24/20 13:30 05/24/20 17:36 Lorazepam 2 Mg/Ml Vial SLOW IVP 06/23/20 13:30 2 mg Q1H PRN Administration Breakthrough agitation Metoclopramide HCl 10 mg 05/26/20 07:30 05/26/20 13:31 Metoclopramide Hcl 10 Mg/2 Ml Vial IVP 10 mg Q6H [facility] Administration Pantoprazole Sodium 40 mg 05/25/20 09:00 05/26/20 09:34 Pantoprazole 40 Mg Vial IVP 40 mg DAILY [facility] Administration Propofol 1,000 mg 05/24/20 13:30 05/26/20 01:18 Propofol 1,000 Mg/100 Ml Vial IV 06/23/20 13:30 1,000 mg INF PRN Administration TO ACHIEVE GOAL RASS Protocol Sodium Chloride 10 ml 05/20/20 09:00 05/26/20 09:35 Flush - Normal Saline 10 Ml Syringe IVF 10 ml Q12HR [facility] Administration Sodium Chloride 10 ml 05/20/20 02:30 05/20/20 17:44 Flush - Normal Saline 10 Ml Syringe IVF 10 ml PRN PRN Administration Saline Flush Hospitalist Exam Vitals: Vital Signs (12 hours) Temp Pulse Pulse Resp BP Pulse Ox 05/26/20 14:54 60 05/26/20 12:00 98.8 F 19 05/26/20 10:44 66 05/26/20 10:00 22 H 05/26/20 09:35 61 112/60 05/26/20 08:00 25 H 98 05/26/20 07:01 61 05/26/20 07:00 98.4 F 05/26/20 05:51 18 Weight Admit Weight 195 lb 3.408 oz Weight 89 lb Most Recent Monitor Data Heart Rate from ECG 62 NIBP 104/59 NIBP BP-Mean 74 Respiration from ECG 18 SpO2 100 General Appearance: ill appearing Eye: PERRL, anicteric sclera ENT: no oropharyngeal lesions, moist mucosa Neck: supple, no JVD Heart: no murmur, irregular Respiratory: no wheezes, rales, rhonchi Gastrointestinal: soft, non-tender, non-distended, normal bowel sounds Extremities: no cyanosis, 1+ LE edema Neurological: cranial nerve grossly intact, no focal deficits Hosp A/P (1) Acute respiratory failure with hypoxia and hypercarbia Code(s): J96.01 - ACUTE RESPIRATORY FAILURE WITH HYPOXIA; J96.02 - ACUTE RESPIRATORY FAILURE WITH HYPERCAPNIA Status: Acute (2) Acute on chronic systolic (congestive) heart failure Code(s): I50.23 - ACUTE ON CHRONIC SYSTOLIC (CONGESTIVE) HEART FAILURE Status: Acute (3) Pneumonia Code(s): J18.9 - PNEUMONIA, UNSPECIFIED ORGANISM Status: Acute Qualifiers: Pneumonia type: due to unspecified organism (4) Nonischemic cardiomyopathy Code(s): I42.8 - OTHER CARDIOMYOPATHIES Status: Chronic (5) Atrial fibrillation Code(s): I48.91 - UNSPECIFIED ATRIAL FIBRILLATION Status: Chronic Qualifiers: Atrial fibrillation type: paroxysmal Qualified Code(s): I48.0 - Paroxysmal atrial fibrillation (6) GERD (gastroesophageal reflux disease) Code(s): K21.9 - GASTRO-ESOPHAGEAL REFLUX DISEASE WITHOUT ESOPHAGITIS Status: Chronic Qualifiers: Esophagitis presence: without esophagitis Qualified Code(s): K21.9 - Gastro-esophageal reflux disease without esophagitis (7) Hyperlipidemia Code(s): E78.5 - HYPERLIPIDEMIA, UNSPECIFIED Status: Chronic Qualifiers: (8) Hypertension Code(s): I10 - ESSENTIAL (PRIMARY) HYPERTENSION Status: Chronic Qualifiers: (9) Schizophrenia Code(s): F20.9 - SCHIZOPHRENIA, UNSPECIFIED Status: Suspected Qualifiers: Schizophrenia type: unspecified Qualified Code(s): F20.9 - Schizophrenia, unspecified (10) Type 2 diabetes mellitus Status: Chronic Qualifiers: Diabetes mellitus superintendent container terminal insulin use: without residential use (11) Hypocalcemia Code(s): E83.51 - HYPOCALCEMIA Status: Resolved (12) Hypokalemia Code(s): E87.6 - HYPOKALEMIA Status: Resolved - Plan electrolytes have been stable, junctional rhythm has been resolved off levophed. No myoclonic jerks or seizures noted today, but patient is sedated poor prognosis, has multiple med issues including non compliance and suspected underlying schizoaffective disorder. Unclear if he has sustained anoxic brain injury on top of above with today's code blue, although witnessed and prompt resucitative measures were done. contnue diuresis as tolerated with close monitoring of electrolytes. prior ef of 15%, likely is noncomplaint? has nearly 6 covid pcr testing done all of which have been -ve, is presumed to have had covid with pulm infiltrates/fibrosis, on dexamethasone per ID advice. continue eliquis, asp, lipitor. has chronic lung changes with current volume overload. I have given complete updates to niece including poor prognosis.
[2020-05-26] MEDS: Atorvastatin Calcium 40 MG TAB PO SCH (20:20)
[2020-05-26] MEDS: Apixaban 2.5 MG TAB PO SCH (20:20)
[2020-05-27] MEDS: Propofol 1,000 MG/100 ML VIAL IV PRN ×3 (04:06→20:26)
[2020-05-27] MEDS: Cefepime 1 GM in Sodium Chloride 0.9% 100 ML IVPB SCH ×2 (04:09→08:42)
[2020-05-27] MEDS: Metoclopramide HCl 10 MG/2 ML VIAL IVP SCH ×4 (04:10→20:26)
[2020-05-27 04:47] LABS: Anion Gap 15 mmol/L (10-20); BUN (Urea Nitrogen) 82 mg/dL (8.4-25.7); Calc. Creatinine Clearance 11 mL/min (70-130); Calcium 8.9 mg/dL (7.8-10.44); Carbon Dioxide 28 mmol/L (23-31); Chloride 109 mmol/L (98-107); Glucose 93 mg/dL (83-110); Potassium 4.6 mmol/L (3.5-5.1); Sodium 147 mmol/L (136-145)
--- NOTE | 2020-05-27 05:42 | PRG ---
DATE OF SERVICE: 05/26/2020 SUBJECTIVE: The patient remains intubated on mechanical ventilation. He is on some sedation. We turned it off and he does not follow commands, although he does move around. OBJECTIVE: VITAL SIGNS: His temperature 98.7 with T-max , pulse rate 58, blood pressure 109/60. He has been weaned off the Levophed. His O2 saturations generally running in the mid 90s. His 24-hour intake was 1922 and output 2019. HEENT: Unremarkable. NECK: No JVD. LUNGS: Coarse rhonchi bilaterally. CARDIOVASCULAR: S1 and S2, regular. ABDOMEN: Soft and nontender. EXTREMITIES: No edema. NEUROLOGIC: He will not follow commands for us. LABORATORY DATA: Sodium 143, potassium 4.2, chloride 108, CO2 of 25, BUN 73, creatinine 2.7, glucose 120, albumin 2.8. White blood cell count 11.4, hematocrit 26.7, and platelet count 278. PH of 7.46, pCO2 of 38, pO2 of 65. SIMV rate 10, tidal volume 500, PEEP 5, pressure 10, FiO2 40%. His x-ray shows diffuse bilateral infiltrates that have not changed. ET tube is in good position. ASSESSMENT: 1. Acute hypoxic respiratory failure requiring mechanical ventilation. 2. Status post cardiopulmonary arrest. 3. Metabolic acidosis, which is corrected and the bicarbonate drip has been stopped. 4. Cardiomyopathy. 5. Thick secretions. PLAN: 1. We will add guaifenesin for his secretions. 2. We will try to minimize his sedation. Weaning will be predicated on improvement in his neurologic status. I will review his MAR and discontinue unnecessary medications. Job ID: [id number]
[2020-05-27 05:55] LABS: #Eosinphils 0.7 thou/uL (0.0-0.7); #Lymphocytes 1.2 thou/uL (1.20-3.40); #Monocytes 1.2 thou/uL (0.11-0.59); #Neutrophils 10.6 thou/uL (1.40-6.50); %Basophils 0.1 % (0.0-1.0); %Eosinophils 5.1 % (0.0-10.0); %Lymphocytes 8.8 % (21.0-51.0); %Monocytes 8.6 % (0.0-10.0); %Neutrophils 77.4 % (42.0-75.0); Hemoglobin 9.4 g/dL (14.0-18.0); MDiff Complete? YES; Mean Corpuscular HGB CONC 32.2 g/dL (32.0-36.0); Mean Corpuscular Hemoglobin 27.6 pg (27.0-31.0); Mean Corpuscular Volume 85.8 fL (78.0-98.0); Mean Platelet Volume 7.9 fL (7.4-10.4); Platelet Count 291 thou/uL (130-400); Red Blood Cell (RBC) Count 3.42 mill/uL (4.70-6.10); Target Cells SLIGHT = 2-5 cells (100X) (0-1/hpf); White Blood Cell (WBC) Count 13.7 thou/uL (4.8-10.8)
[2020-05-27] MEDS: Furosemide 40 MG/4 ML VIAL SLOW IVP SCH (06:15)
[2020-05-27 06:47] LABS: Actual Bicarbonate (HCO3a) 27.9 mEq/L (22-28); Base Excess (BEa) 2.5 mEq/L (-2.0 to +3.0); CO2 Tension 46.7 mmHg (35.0-45.0); Calcium, Ionized (arterial) 1.16 mmol/L (1.12-1.30); Carboxyhemoglobin (COHb) 0.9 gm% (0.0-3.0); Hemoglobin (Hb) 9.9 g/dL (14.0-18.0); Potassium - ABG Lab 4.58 mmol/L (3.70-5.30); pH, Arterial 7.39 (7.35-7.45)
[2020-05-27 06:49] LABS: O2 Tension (PaO2), arterial 53.8 mmHg (> 70.0)
[2020-05-27 06:50] LABS: ALV-art Gradient 173.025 mmHg (0-20); Puncture Site RRA
[2020-05-27 07:25] LABS: ALT (SGPT) 96 U/L (8-55); AST (SGOT) 49 U/L (5-34); Albumin 3.1 g/dL (3.4-4.8); Alkaline Phosphatase 130 U/L (40-110); Bilirubin, Direct 0.6 mg/dL (0.1-0.3); Bilirubin, Total 0.7 mg/dL (0.2-1.2); Protein, Total 6.1 g/dL (5.8-8.1)
[2020-05-27] MEDS: Albuterol 200 PUFF (6.7GM INHALER) INH SCH ×3 (07:53→19:16)
[2020-05-27] MEDS: Aspirin Chewable 81 MG TAB PO SCH (08:41)
[2020-05-27] MEDS: Carvedilol 3.125 MG TAB PO SCH ×2 (08:41→17:55)
[2020-05-27] MEDS: Apixaban 2.5 MG TAB PO SCH ×2 (08:41→20:26)
[2020-05-27] MEDS: Allopurinol 100 MG TAB PO SCH (08:42)
[2020-05-27] MEDS: Albumin 25% 25 GM/100 ML BOT IVPB SCH (08:42)
[2020-05-27] MEDS: Pantoprazole 40 MG VIAL IVP SCH (08:42)
--- NOTE | 2020-05-27 09:55 | RAD ---
EXAM: Chest one view: HISTORY: Follow-up pneumonia COMPARISON: 05/26/2020 FINDINGS: Stable life-support tubes. Heart size: Stable hepatomegaly. Lungs: Fairly extensive bilateral interstitial, alveolar, and groundglass opacity changes throughout both lungs. No pneumothorax. IMPRESSION: Extensive bilateral pneumonia with little change from prior exam. Continued short-term follow-up.
[2020-05-27] MEDS: GUAIFENESIN SF SOLN 200 MG/10 ML UDCUP PER TUBE SCH ×2 (09:59→20:26)
[2020-05-27] MEDS: Sodium Chloride 0.9% 1,000 ML IV SCH (10:25)
--- NOTE | 2020-05-27 11:15 | PRG ---
DATE OF SERVICE: 05/27/2020 35 minutes critical care time. SUBJECTIVE: The patient remains intubated on mechanical ventilation. I cannot get him to open his eyes to voice. OBJECTIVE: VITAL SIGNS: Temperature 98.2, pulse 65, blood pressure 100/58. 24-hour intake 1454, output 1007. HEENT: Unremarkable. NECK: No JVD. LUNGS: Coarse rhonchi. CARDIAC: S1 and S2. Regular. ABDOMEN: Soft. EXTREMITIES: No edema. LABORATORY DATA: Sodium 147, potassium 4.6, chloride 109, CO2 of 28, BUN 82, creatinine 3.3, glucose 93, albumin 3.1. PH of 7.39, pCO2 of 46, PO2 of 53 on SIMV rate of 10, tidal volume 500, PEEP 5, pressure support 15, FiO2 of 40%. His O2 sats on the monitor running about 90%. White blood count 13.7, hematocrit 29.3, and platelet count 291. IMAGING STUDIES: His x-ray continues to show diffuse bilateral infiltrates. ASSESSMENT: 1. Status post cardiopulmonary arrest. 2. Acute hypoxic respiratory failure requiring mechanical ventilation. 3. Improved metabolic acidosis. 4. Continued severe hypoxemia. 5. Cardiomyopathy. PLAN: He is not weanable at this time. He is to continue on antibiotic coverage for possible pneumonia/aspiration pneumonia. His diuretics are being held today because of the developing hypernatremia. He is currently on tube feeds with at 10 mL/h - the rate is intentionally low because the patient is on propofol. I would anticipate the patient being on ventilator for several more days. Job ID: [id number]
[2020-05-27] MEDS: DOBUTamine 500 mg/250 ml 500 MG in Premix Bag 1 BAG IVPB SCH (13:47)
--- NOTE | 2020-05-27 14:34 | PDOC.HOSPP ---
- Subjective Encounter Date: 05/27/20 Encounter Time: 08:00 Subjective: is on vent, sedated - Objective Vital Signs & Weight: Vital Signs (12 hours) Temp Pulse Resp BP Pulse Ox 05/27/20 14:28 74 120/62 05/27/20 14:00 17 05/27/20 13:08 64 94/51 L 05/27/20 11:55 19 05/27/20 10:34 65 05/27/20 10:00 17 05/27/20 08:00 89 L 05/27/20 07:53 65 103/62 05/27/20 07:44 19 05/27/20 06:00 16 05/27/20 05:00 98.2 F 05/27/20 04:00 24 H 05/27/20 03:26 64 05/27/20 03:00 98.0 F Weight Admit Weight 195 lb 3.408 oz Weight 195 lb Most Recent Monitor Data Heart Rate from ECG 70 NIBP 120/62 NIBP BP-Mean 81 Respiration from ECG 16 SpO2 93 I&O: 05/26/20 05/27/20 05/28/20 06:59 06:59 06:59 Intake Total 1923 1454.5 185.60 Output Total 2020 1007 370 Balance -97 447.5 -184.40 Result Diagrams: 05/27/20 03:40 05/27/20 03:40 Hospitalist ROS - Medication Medications: Active Medications Generic Name Dose Route Start Last Admin Trade Name Freq PRN Reason Stop Dose Admin Albumin Human 50 gm 05/27/20 06:54 05/27/20 08:42 Albumin 25% 25 Gm/100 Ml Bot IVPB 05/28/20 06:55 50 gm NOW STEPH Administration Albuterol Sulfate 2 puff 05/24/20 01:00 05/27/20 13:07 Albuterol 200 Puff (6.7gm Inhaler) INH 2 puff [id number] STEPH Administration Allopurinol 100 mg 05/24/20 09:00 05/27/20 08:42 Allopurinol 100 Mg Tab PO 100 mg DAILY STEPH Administration Apixaban 2.5 mg 05/26/20 21:00 05/27/20 08:41 Apixaban 2.5 Mg Tab PO 2.5 mg BID STEPH Administration Aspirin 81 mg 05/25/20 09:00 05/27/20 08:41 Aspirin Chewable 81 Mg Tab PO 81 mg DAILY STEPH Administration Atorvastatin Calcium 40 mg 05/20/20 21:00 05/26/20 20:20 Atorvastatin Calcium 40 Mg Tab PO 40 mg HS STEPH Administration Carvedilol 3.125 mg 05/25/20 17:00 05/27/20 08:41 Carvedilol 3.125 Mg Tab PO 3.125 mg BID-WM STEPH Administration Guaifenesin 600 mg 05/26/20 21:00 05/27/20 09:59 Guaifenesin Sf Soln 200 Mg/10 Ml Udcup PER TUBE 600 mg BID STEPH Administration Doxycycline Hyclate 100 mg/ 100 mls @ 100 mls/hr 05/24/20 08:00 05/27/20 08:42 Sodium Chloride IVPB 100 mls 0800,2000 STE[facility] Administration Fentanyl 100 mls @ 0 mls/hr 05/24/20 13:30 05/25/20 21:22 Fentanyl Cadd IV 06/23/20 13:30 100 mls INF STE[facility] Administration Protocol Per Protocol Sodium Chloride 1,000 mls @ 10 mls/hr 05/25/20 11:45 05/27/20 10:25 Normal Saline 0.9% IV Not Given .Q24H STE[facility] Cefepime HCl 1 gm/ Sodium 100 mls @ 200 mls/hr 05/27/20 09:00 05/27/20 08:42 Chloride IVPB 100 mls DAILY STEPH Administration Dobutamine HCl/Dextrose 500 mg 250 mls @ 0 mls/hr 05/27/20 13:45 05/27/20 13:47 / Device IVPB 250 mls INF STEPH Administration Protocol As Directed Lorazepam 2 mg 05/24/20 13:30 05/24/20 17:36 Lorazepam 2 Mg/Ml Vial SLOW IVP 06/23/20 13:30 2 mg Q1H PRN Administration Breakthrough agitation Metoclopramide HCl 10 mg 05/26/20 07:30 05/27/20 12:37 Metoclopramide Hcl 10 Mg/2 Ml Vial IVP 10 mg Q6H STEPH Administration Pantoprazole Sodium 40 mg 05/25/20 09:00 05/27/20 08:42 Pantoprazole 40 Mg Vial IVP 40 mg DAILY STEPH Administration Propofol 1,000 mg 05/24/20 13:30 05/27/20 12:39 Propofol 1,000 Mg/100 Ml Vial IV 06/23/20 13:30 1,000 mg INF PRN Administration TO ACHIEVE GOAL RASS Protocol Sodium Chloride 10 ml 05/20/20 09:00 05/27/20 08:44 Flush - Normal Saline 10 Ml Syringe IVF 10 ml Q12HR STEPH Administration Sodium Chloride 10 ml 05/20/20 02:30 05/20/20 17:44 Flush - Normal Saline 10 Ml Syringe IVF 10 ml PRN PRN Administration Saline Flush Hospitalist Exam Vitals: Vital Signs (12 hours) Temp Pulse Resp BP Pulse Ox 05/27/20 14:28 74 120/62 05/27/20 14:00 17 05/27/20 13:08 64 94/51 L 05/27/20 11:55 19 05/27/20 10:34 65 05/27/20 10:00 17 05/27/20 08:00 89 L 05/27/20 07:53 65 103/62 05/27/20 07:44 19 05/27/20 06:00 16 05/27/20 05:00 98.2 F 05/27/20 04:00 24 H 05/27/20 03:26 64 05/27/20 03:00 98.0 F Weight Admit Weight 195 lb 3.408 oz Weight 195 lb Most Recent Monitor Data Heart Rate from ECG 70 NIBP 120/62 NIBP BP-Mean 81 Respiration from ECG 16 SpO2 93 General Appearance: ill appearing Eye: PERRL, anicteric sclera ENT: no oropharyngeal lesions, moist mucosa Neck: supple, no JVD Heart: RRR, no murmur Respiratory: no wheezes, rales, rhonchi Gastrointestinal: soft, non-tender, non-distended, normal bowel sounds Extremities: no cyanosis, no edema Neurological: cranial nerve grossly intact, no focal deficits Hosp A/P (1) Acute respiratory failure with hypoxia and hypercarbia Code(s): J96.01 - ACUTE RESPIRATORY FAILURE WITH HYPOXIA; J96.02 - ACUTE RESPIRATORY FAILURE WITH HYPERCAPNIA Status: Acute (2) Acute on chronic systolic (congestive) heart failure Code(s): I50.23 - ACUTE ON CHRONIC SYSTOLIC (CONGESTIVE) HEART FAILURE Status: Acute (3) Pneumonia Code(s): J18.9 - PNEUMONIA, UNSPECIFIED ORGANISM Status: Acute Qualifiers: Pneumonia type: due to unspecified organism (4) Nonischemic cardiomyopathy Code(s): I42.8 - OTHER CARDIOMYOPATHIES Status: Chronic (5) Atrial fibrillation Code(s): I48.91 - UNSPECIFIED ATRIAL FIBRILLATION Status: Chronic Qualifiers: Atrial fibrillation type: paroxysmal Qualified Code(s): I48.0 - Paroxysmal atrial fibrillation (6) GERD (gastroesophageal reflux disease) Code(s): K21.9 - GASTRO-ESOPHAGEAL REFLUX DISEASE WITHOUT ESOPHAGITIS Status: Chronic Qualifiers: Esophagitis presence: without esophagitis Qualified Code(s): K21.9 - Gastro-esophageal reflux disease without esophagitis (7) Hyperlipidemia Code(s): E78.5 - HYPERLIPIDEMIA, UNSPECIFIED Status: Chronic Qualifiers: (8) Hypertension Code(s): I10 - ESSENTIAL (PRIMARY) HYPERTENSION Status: Chronic Qualifiers: (9) Schizophrenia Code(s): F20.9 - SCHIZOPHRENIA, UNSPECIFIED Status: Suspected Qualifiers: Schizophrenia type: unspecified Qualified Code(s): F20.9 - Schizophrenia, unspecified (10) Type 2 diabetes mellitus Status: Chronic Qualifiers: Diabetes mellitus half-way insulin use: without half-way use (11) Hypocalcemia Code(s): E83.51 - HYPOCALCEMIA Status: Resolved (12) Hypokalemia Code(s): E87.6 - HYPOKALEMIA Status: Resolved - Plan diuretics were held due to volume contraction and low sbp electrolytes have been stable, junctional rhythm resolved. No myoclonic jerks or seizures after episodes of it on the day he got intubated. poor prognosis, has multiple med issues including non compliance and suspected underlying schizoaffective disorder. Unclear if he has sustained anoxic brain injury on top of above with today's code blue, although witnessed and prompt resuscitative measures were done. contnue diuresis as tolerated with close monitoring of electrolytes. prior ef of 15%, likely is noncomplaint? has nearly 6 covid pcr testing done all of which have been -ve, is presumed to have had covid with pulm infiltrates/fibrosis, on dexamethasone per ID advice. continue eliquis, asp, lipitor. has chronic lung changes with current volume overload. I have given complete updates to niece including poor prognosis on 05/26, unable to reach her today on phone.
--- NOTE | 2020-05-27 15:06 | PDOC.CPN ---
- Subjective Date: 05/27/20 Time: 15:04 Interval history: Remains sedated and intubated. - Review of Systems ROS unobtainable: due to endotracheal tube - Objective Allergies/Adverse Reactions: Allergies Allergy/AdvReac Type Severity Reaction Status Date / Time No Known Allergies Allergy Verified 02/13/20 12:31 Visit Medications: Current Medications Acetaminophen (Acetaminophen 325 Mg Tab) 650 mg PO Q4H PRN PRN Reason: Headache/Fever/Mild Pain (1-3) Acetaminophen (Acetaminophen 650 Mg Suppository) 650 mg AL Q4H PRN PRN Reason: Headache/Fever/Mild Pain (1-3) Albumin Human (Albumin 25% 25 Gm/100 Ml Bot) 50 gm IVPB NOW [facility] Stop: 05/28/20 06:55 Last Admin: 05/27/20 08:42 Dose: 50 gm Documented by: Albuterol Sulfate (Albuterol 200 Puff (6.7gm Inhaler)) 2 puff INH [id number] [facility] Last Admin: 05/27/20 13:07 Dose: 2 puff Documented by: Allopurinol (Allopurinol 100 Mg Tab) 100 mg PO DAILY [facility] Last Admin: 05/27/20 08:42 Dose: 100 mg Documented by: Apixaban (Apixaban 2.5 Mg Tab) 2.5 mg PO BID [facility] Last Admin: 05/27/20 08:41 Dose: 2.5 mg Documented by: Aspirin (Aspirin Chewable 81 Mg Tab) 81 mg PO DAILY [facility] Last Admin: 05/27/20 08:41 Dose: 81 mg Documented by: Atorvastatin Calcium (Atorvastatin Calcium 40 Mg Tab) 40 mg PO [facility] Last Admin: 05/26/20 20:20 Dose: 40 mg Documented by: Calcium Carbonate (Calcium Carbonate 500 Mg Chewtab) 1,000 mg PO Q4H PRN PRN Reason: Heartburn or Indigestion Carvedilol (Carvedilol 3.125 Mg Tab) 3.125 mg PO BID-[facility] Last Admin: 05/27/20 08:41 Dose: 3.125 mg Documented by: Guaifenesin (Guaifenesin Sf Soln 200 Mg/10 Ml Udcup) 600 mg PER TUBE BID [facility] Last Admin: 05/27/20 09:59 Dose: 600 mg Documented by: Doxycycline Hyclate 100 mg/ (Sodium Chloride) 100 mls @ 100 mls/hr IVPB 0800,2000 [facility] Last Admin: 05/27/20 08:42 Dose: 100 mls Documented by: Fentanyl (Fentanyl Cadd) 100 mls @ 0 mls/hr IV INF [facility]; Protocol Stop: 06/23/20 13:30 Last Admin: 05/25/20 21:22 Dose: 100 mls Documented by: Fentanyl Citrate (Fentanyl Bolus) 250 mls @ 0 mls/hr IVPB PRN PRN PRN Reason: Breakthrough pain/agitation Stop: 06/23/20 13:30 Sodium Chloride (Normal Saline 0.9%) 1,000 mls @ 10 mls/hr IV .Q24H [facility] Last Admin: 05/27/20 10:25 Dose: Not Given Documented by: Cefepime HCl 1 gm/ Sodium (Chloride) 100 mls @ 200 mls/hr IVPB DAILY [facility] Last Admin: 05/27/20 08:42 Dose: 100 mls Documented by: Norepinephrine Bitartrate (Levophed) 250 mls @ 0 mls/hr IVPB INF [facility]; Protocol Dobutamine HCl/Dextrose 500 mg (/ Device) 250 mls @ 0 mls/hr IVPB INF [facility]; Protocol Last Admin: 05/27/20 13:47 Dose: 250 mls Documented by: Lorazepam (Lorazepam 2 Mg/Ml Vial) 2 mg SLOW IVP Q1H PRN PRN Reason: Breakthrough agitation Stop: 06/23/20 13:30 Last Admin: 05/24/20 17:36 Dose: 2 mg Documented by: Metoclopramide HCl (Metoclopramide Hcl 10 Mg/2 Ml Vial) 10 mg IVP Q6H [facility] Last Admin: 05/27/20 12:37 Dose: 10 mg Documented by: Miscellaneous Medication (Electrolyte Replacement Protocol) 0 each FS ASDIR PRN; Protocol PRN Reason: ELECTROLYTE REPLACEMENT Morphine Sulfate (Morphine 2 Mg/Ml Vial) 2 mg SLOW IVP Q1H PRN PRN Reason: Breakthrough Pain/Agitation Stop: 06/23/20 13:30 Pantoprazole Sodium (Pantoprazole 40 Mg Vial) 40 mg IVP DAILY [facility] Last Admin: 05/27/20 08:42 Dose: 40 mg Documented by: Propofol (Propofol 1,000 Mg/100 Ml Vial) 1,000 mg IV INF PRN; Protocol PRN Reason: TO ACHIEVE GOAL RASS Stop: 06/23/20 13:30 Last Admin: 05/27/20 12:39 Dose: 1,000 mg Documented by: Propofol (Propofol Bolus 1,000 Mg/100 Ml Vial) 20 mg IV Q5MIN PRN PRN Reason: BREAKTHROUGH AGITATION Stop: 06/23/20 13:30 Sodium Chloride (Flush - Normal Saline 10 Ml Syringe) 10 ml IVF Q12HR [facility] Last Admin: 05/27/20 08:44 Dose: 10 ml Documented by: Sodium Chloride (Flush - Normal Saline 10 Ml Syringe) 10 ml IVF PRN PRN PRN Reason: Saline Flush Last Admin: 05/20/20 17:44 Dose: 10 ml Documented by: Sodium Chloride (Sodium Chloride 0.9% (Pf) 10 Ml Vial) 10 ml FS PRN PRN PRN Reason: RECONSTITUTION Vital Signs & Weight: Vital Signs Temp Pulse Resp BP Pulse Ox 05/27/20 14:28 74 120/62 05/27/20 14:00 17 05/27/20 13:08 64 94/51 L 05/27/20 11:55 19 05/27/20 10:34 65 05/27/20 10:00 17 05/27/20 08:00 89 L 05/27/20 07:53 65 103/62 05/27/20 07:44 19 05/27/20 06:00 16 05/27/20 05:00 98.2 F 05/27/20 04:00 24 H 05/27/20 03:26 64 Admit Weight 195 lb 3.408 oz Weight 195 lb - Physical Exam General: other (S/I) HEENT: normocephaly Neck: midline trachea Cardiac: regular rate and rhythm Lungs: normal breath sounds Neuro: no lateralizing findings Abdomen: active bowel sounds Extremities: no edema Skin: clear Musculoskeletal: normal range of motion - Labs Result Diagrams: 05/27/20 03:40 05/27/20 03:40 Troponin/CKMB CK-MB (CK-2) 1.4 ng/mL (0-6.6) 05/19/20 20:40 Troponin I 0.245 ng/mL (< 0.028) H 05/20/20 02:37 - Telemetry Sinus rhythms and dysrhythmias: sinus rhythm - Assessment/Plan Assessment/Plan: 1. Post Cardiopulomnary arrest 2. Non ischemic CM EF at 15-20% 3. Likely late COVID -19 infection presentation 4. Paroxysmal afib 5. MATT on CKD PLAN - Continue supportive care. - Renal function worsening. Likely Cardiorenal with such low EF. Will start dobutamine gtt to help CO. - Will restart IV lasix. - Poor fdc prognosis.
--- NOTE | 2020-05-27 15:38 | PDOC.NEPPN ---
- Subjective Encounter Date: 05/27/20 Subjective: Became hypotensive most of yesterday into today. Still intubated. - Objective Vital Signs & Weight: Vital Signs (12 hours) Temp Pulse Resp BP Pulse Ox 05/27/20 14:28 74 120/62 05/27/20 14:00 17 05/27/20 13:08 64 94/51 L 05/27/20 11:55 19 05/27/20 10:34 65 05/27/20 10:00 17 05/27/20 08:00 89 L 05/27/20 07:53 65 103/62 05/27/20 07:44 19 05/27/20 06:00 16 05/27/20 05:00 98.2 F 05/27/20 04:00 24 H Weight Admit Weight 195 lb 3.408 oz Weight 195 lb Most Recent Monitor Data Heart Rate from ECG 76 NIBP 132/68 NIBP BP-Mean 89 Respiration from ECG 16 SpO2 93 I&O: 05/26/20 05/27/20 05/28/20 06:59 06:59 06:59 Intake Total 1923 1454.5 238.90 Output Total 2019 1007 420 Balance -97 447.5 -181.10 Result Diagrams: 05/27/20 03:40 05/27/20 03:40 Nephrology ROS - Medication Medications: Active Medications Generic Name Dose Route Start Last Admin Trade Name Freq PRN Reason Stop Dose Admin Albumin Human 50 gm 05/27/20 06:54 05/27/20 08:42 Albumin 25% 25 Gm/100 Ml Bot IVPB 05/28/20 06:55 50 gm NOW STEPH Administration Albuterol Sulfate 2 puff 05/24/20 01:00 05/27/20 13:07 Albuterol 200 Puff (6.7gm Inhaler) INH 2 puff [id number] STEPH Administration Allopurinol 100 mg 05/24/20 09:00 05/27/20 08:42 Allopurinol 100 Mg Tab PO 100 mg DAILY STE[facility] Administration Apixaban 2.5 mg 05/26/20 21:00 05/27/20 08:41 Apixaban 2.5 Mg Tab PO 2.5 mg BID STEPH Administration Aspirin 81 mg 05/25/20 09:00 05/27/20 08:41 Aspirin Chewable 81 Mg Tab PO 81 mg DAILY [facility] Administration Atorvastatin Calcium 40 mg 05/20/20 21:00 05/26/20 20:20 Atorvastatin Calcium 40 Mg Tab PO 40 mg HS STE[facility] Administration Carvedilol 3.125 mg 05/25/20 17:00 05/27/20 08:41 Carvedilol 3.125 Mg Tab PO 3.125 mg BID-WM [facility] Administration Guaifenesin 600 mg 05/26/20 21:00 05/27/20 09:59 Guaifenesin Sf Soln 200 Mg/10 Ml Udcup PER TUBE 600 mg BID [facility] Administration Doxycycline Hyclate 100 mg/ 100 mls @ 100 mls/hr 05/24/20 08:00 05/27/20 08:42 Sodium Chloride IVPB 100 mls 0800,2000 [facility] Administration Fentanyl 100 mls @ 0 mls/hr 05/24/20 13:30 05/25/20 21:22 Fentanyl Cadd IV 06/23/20 13:30 100 mls INF [facility] Administration Protocol Per Protocol Sodium Chloride 1,000 mls @ 10 mls/hr 05/25/20 11:45 05/27/20 10:25 Normal Saline 0.9% IV Not Given .Q24H [facility] Cefepime HCl 1 gm/ Sodium 100 mls @ 200 mls/hr 05/27/20 09:00 05/27/20 08:42 Chloride IVPB 100 mls DAILY [facility] Administration Dobutamine HCl/Dextrose 500 mg 250 mls @ 0 mls/hr 05/27/20 13:45 05/27/20 13:47 / Device IVPB 250 mls INF [facility] Administration Protocol As Directed Lorazepam 2 mg 05/24/20 13:30 05/24/20 17:36 Lorazepam 2 Mg/Ml Vial SLOW IVP 06/23/20 13:30 2 mg Q1H PRN Administration Breakthrough agitation Metoclopramide HCl 10 mg 05/26/20 07:30 05/27/20 12:37 Metoclopramide Hcl 10 Mg/2 Ml Vial IVP 10 mg Q6H [facility] Administration Pantoprazole Sodium 40 mg 05/25/20 09:00 05/27/20 08:42 Pantoprazole 40 Mg Vial IVP 40 mg DAILY [facility] Administration Propofol 1,000 mg 05/24/20 13:30 05/27/20 12:39 Propofol 1,000 Mg/100 Ml Vial IV 06/23/20 13:30 1,000 mg INF PRN Administration TO ACHIEVE GOAL RASS Protocol Sodium Chloride 10 ml 05/20/20 09:00 05/27/20 08:44 Flush - Normal Saline 10 Ml Syringe IVF 10 ml Q12HR [facility] Administration Sodium Chloride 10 ml 05/20/20 02:30 05/20/20 17:44 Flush - Normal Saline 10 Ml Syringe IVF 10 ml PRN PRN Administration Saline Flush - Exam General - other findings: sedated Eye: anicteric sclera ENT: normocephalic atraumatic ENT - other findings: ET tube in place Neck: symmetric Respiratory - other findings: ventilator transmitted breath sound noted Cardiovascular: RRR Gastrointestinal: soft, non-tender, non-distended, normal bowel sounds Extremities - other findings: trace sushil of the upper limbs Neurological - other findings: sedated Nephrology Results - Labs Result Diagrams: 05/27/20 03:40 05/27/20 03:40 Lab results: WBC 13.7 thou/uL (4.8-10.8) H 05/27/20 03:40 Hgb 9.4 g/dL (14.0-18.0) L 05/27/20 03:40 Hct 29.3 % (42.0-52.0) L 05/27/20 03:40 MCV 85.8 fL (78.0-98.0) 05/27/20 03:40 Plt Count 291 thou/uL (130-400) 05/27/20 03:40 Neutrophils % 77.4 % (42.0-75.0) H 05/27/20 03:40 Band Neuts % (Manual) 1 % (5-11) L 05/20/20 05:33 ABG pH 7.39 (7.35-7.45) 05/27/20 06:40 ABG pCO2 46.7 mmHg (35.0-45.0) H 05/27/20 06:40 ABG pO2 53.8 mmHg (> 70.0) L* 05/27/20 06:40 VBG pH 7.42 (7.32-7.43) 05/24/20 06:30 VBG pCO2 30.9 mmHg (42.0-51.0) L 05/24/20 06:30 VBG pO2 65.3 mmHg (35.0-45.0) H 05/24/20 06:30 Sodium 147 mmol/L (136-145) H 05/27/20 03:40 Potassium 4.6 mmol/L (3.5-5.1) 05/27/20 03:40 Chloride 109 mmol/L (98-107) H 05/27/20 03:40 Carbon Dioxide 28 mmol/L (23-31) 05/27/20 03:40 BUN 82 mg/dL (8.4-25.7) H 05/27/20 03:40 Creatinine 3.33 mg/dL (0.7-1.3) H 05/27/20 03:40 Glucose 93 mg/dL (83-110) 05/27/20 03:40 Lactic Acid 1.7 mmol/L (0.5-2.2) 05/20/20 01:52 Calcium 8.9 mg/dL (7.8-10.44) 05/27/20 03:40 Total Bilirubin 0.7 mg/dL (0.2-1.2) 05/27/20 03:40 AST 49 U/L (5-34) H 05/27/20 03:40 ALT 96 U/L (8-55) H 05/27/20 03:40 Alkaline Phosphatase 130 U/L (40-110) H 05/27/20 03:40 CK-MB (CK-2) 1.4 ng/mL (0-6.6) 05/19/20 20:40 Troponin I 0.245 ng/mL (< 0.028) H 05/20/20 02:37 C-Reactive Protein 12.35 mg/dL (= or < 0.5) H 05/24/20 04:48 B-Natriuretic Peptide 3710.8 pg/mL (0-100) H 05/23/20 16:22 Serum Total Protein 6.1 g/dL (5.8-8.1) 05/27/20 03:40 Albumin 3.1 g/dL (3.4-4.8) L 05/27/20 03:40 Lipase 4 U/L (8-78) L 05/24/20 04:48 Urine Ketones Negative mg/dL (Negative) 05/25/20 10:00 Urine Blood 1+ (Negative) A 05/25/20 10:00 Urine Nitrite Negative (Negative) 05/25/20 10:00 Ur Leukocyte Esterase 25 Arlene/uL (Negative) A 05/25/20 10:00 Urine RBC 11-20 HPF (0-3) A 05/25/20 10:00 Urine WBC 7-10 HPF (0-3) A 05/25/20 10:00 Ur Squamous Epith Cells None Seen HPF (0-3) 05/25/20 10:00 Urine Bacteria 1+ HPF (None Seen) A 05/25/20 10:00 Sodium 147 mmol/L (136-145) H 05/27/20 03:40 Potassium 4.6 mmol/L (3.5-5.1) 05/27/20 03:40 Chloride 109 mmol/L (98-107) H 05/27/20 03:40 Carbon Dioxide 28 mmol/L (23-31) 05/27/20 03:40 Anion Gap 15 mmol/L (10-20) 05/27/20 03:40 BUN 82 mg/dL (8.4-25.7) H 05/27/20 03:40 Creatinine 3.33 mg/dL (0.7-1.3) H 05/27/20 03:40 Glucose 93 mg/dL (83-110) 05/27/20 03:40 Calcium 8.9 mg/dL (7.8-10.44) 05/27/20 03:40 Phosphorus 2.5 mg/dL (2.3-4.7) 05/24/20 04:48 Phosphorus Cancelled 05/24/20 04:48 Albumin 3.1 g/dL (3.4-4.8) L 05/27/20 03:40 Nephrology AP PN - Plan MATT: Due to hemodynamic factors related to hypotension, cardiac decompensation and diuretics/RAAS [place]. Creat continues to trend up. Cardiorenal syndrome remained a concern. CKD 3. Presumed Cardiogenic shock. Hyperkalemia: Resolved. Metabolic acidosis: Resolved with alkali therapy Metabolic alkalosis: Due to Volume contraction. Resolved with albumin. Hypoalbuminemia Acute respiratory failure requiring intubation Cardiomyopathy with EF of 15% Pulmonary infiltrates. ? Pulmonaray edema from CHF vs infective process. Has remained afebrile and Covid remained negative. Normal procalcitonin makes pulmonary congestion from CHF exacerbation more likely PLAN Give 50 grams of albumin. Discuussed ionotropic therapy with Cardiology. To be started on dobutamine and lasix. Monitor vitals. Follow electrolytes and renal function
[2020-05-27] MEDS: Atorvastatin Calcium 40 MG TAB PO SCH (20:26)
[2020-05-27] MEDS ORDERED: Fentanyl CADD 100 ML ONE (23:34)
[2020-05-27] MEDS: Fentanyl CADD 100 ML IV SCH (23:45)
[2020-05-28] MEDS: Albuterol 200 PUFF (6.7GM INHALER) INH SCH ×4 (00:16→18:56)
[2020-05-28] MEDS: Metoclopramide HCl 10 MG/2 ML VIAL IVP SCH ×4 (00:46→21:04)
[2020-05-28 03:58] LABS: Anion Gap 16 mmol/L (10-20); BUN (Urea Nitrogen) 80 mg/dL (8.4-25.7); Calc. Creatinine Clearance 23 mL/min (70-130); Calcium 8.8 mg/dL (7.8-10.44); Carbon Dioxide 27 mmol/L (23-31); Chloride 112 mmol/L (98-107); Glucose 79 mg/dL (83-110); Potassium 4.5 mmol/L (3.5-5.1); Sodium 150 mmol/L (136-145)
[2020-05-28 04:05] LABS: #Eosinphils 0.8 thou/uL (0.0-0.7); #Lymphocytes 1.3 thou/uL (1.20-3.40); #Monocytes 1.2 thou/uL (0.11-0.59); #Neutrophils 9.8 thou/uL (1.40-6.50); %Basophils 0.1 % (0.0-1.0); %Eosinophils 6.1 % (0.0-10.0); %Lymphocytes 9.9 % (21.0-51.0); %Neutrophils 74.9 % (42.0-75.0); Hemoglobin 8.7 g/dL (14.0-18.0); Mean Corpuscular HGB CONC 32.3 g/dL (32.0-36.0); Mean Corpuscular Hemoglobin 27.7 pg (27.0-31.0); Mean Corpuscular Volume 85.8 fL (78.0-98.0); Mean Platelet Volume 7.9 fL (7.4-10.4); Platelet Count 248 thou/uL (130-400); RBC Distribution Width 15.1 % (11.5-14.5); Red Blood Cell (RBC) Count 3.14 mill/uL (4.70-6.10); White Blood Cell (WBC) Count 13.1 thou/uL (4.8-10.8)
[2020-05-28] MEDS: Propofol 1,000 MG/100 ML VIAL IV PRN ×2 (05:50→22:43)
[2020-05-28] MEDS ORDERED: Furosemide 40 MG/4 ML VIAL SLOW IVP SCH (06:00)
[2020-05-28 06:50] LABS: Actual Bicarbonate (HCO3a) 27.2 mEq/L (22-28); Base Excess (BEa) 1.3 mEq/L (-2.0 to +3.0); CO2 Tension 50.1 mmHg (35.0-45.0); O2 Tension (PaO2), arterial 49.4 mmHg (> 70.0); pH, Arterial 7.35 (7.35-7.45)
[2020-05-28 06:51] LABS: Analyzer IN Cardio OR; Calcium, Ionized (arterial) 1.15 mmol/L (1.12-1.30); Hemoglobin (Hb) 9.2 g/dL (14.0-18.0); Puncture Site LRA
[2020-05-28 06:52] LABS: ALV-art Gradient 280.125 mmHg (0-20)
[2020-05-28] MEDS: DOBUTamine 500 mg/250 ml 500 MG in Premix Bag 1 BAG IVPB SCH (08:08)
[2020-05-28] MEDS: Cefepime 1 GM in Sodium Chloride 0.9% 100 ML IVPB SCH (08:08)
[2020-05-28] MEDS: Albumin 25% 25 GM/100 ML BOT IVPB SCH (08:08)
[2020-05-28] MEDS: Aspirin Chewable 81 MG TAB PO SCH (08:09)
[2020-05-28] MEDS: Apixaban 2.5 MG TAB PO SCH ×2 (08:09→21:17)
[2020-05-28] MEDS: Carvedilol 3.125 MG TAB PO SCH ×2 (08:09→17:48)
[2020-05-28] MEDS: Allopurinol 100 MG TAB PO SCH (08:09)
[2020-05-28] MEDS: GUAIFENESIN SF SOLN 200 MG/10 ML UDCUP PER TUBE SCH ×2 (08:09→21:17)
[2020-05-28] MEDS: Pantoprazole 40 MG VIAL IVP SCH (08:09)
--- NOTE | 2020-05-28 08:25 | RAD ---
Portable frontal chest radiograph: 05/28/2020 COMPARISON: 05/27/2020 HISTORY: Pneumonia FINDINGS: Stable endotracheal tube and nasogastric tube. Stable extensive interstitial and alveolar o pacity throughout both lungs. Stable heart and mediastinal contours. There supine imaging limits assessment for pneumothorax and pleural fluid. IMPRESSION: No significant interval change.
[2020-05-28] MEDS ORDERED: Metolazone 2.5 MG TAB PO SCH (11:00)
--- NOTE | 2020-05-28 11:34 | PDOC.NEPPN ---
- Subjective Encounter Date: 05/28/20 Subjective: Seen and evaluated. Still intubated. - Objective Vital Signs & Weight: Vital Signs (12 hours) Temp Pulse Resp BP Pulse Ox 05/28/20 10:18 72 115/60 05/28/20 09:54 17 05/28/20 08:00 93 L 05/28/20 07:47 14 05/28/20 07:00 98.8 F 05/28/20 06:37 70 106/55 L 05/28/20 06:00 28 H 05/28/20 04:00 98.8 F 28 H 05/28/20 02:35 72 125/62 05/28/20 02:00 18 05/28/20 00:17 75 124/58 L 05/28/20 00:00 99.2 F 17 Weight Admit Weight 195 lb 3.408 oz Weight 196 lb 0.32 oz Most Recent Monitor Data Heart Rate from ECG 72 NIBP 115/60 NIBP BP-Mean 78 Respiration from ECG 24 SpO2 92 I&O: 05/27/20 05/28/20 05/29/20 06:59 06:59 06:59 Intake Total 1454.5 823.80 116.0 Output Total 1007 1630 625 Balance 447.5 -806.20 -509.0 Result Diagrams: 05/28/20 02:43 05/28/20 02:43 Nephrology ROS - Medication Medications: Active Medications Generic Name Dose Route Start Last Admin Trade Name Freq PRN Reason Stop Dose Admin Albuterol Sulfate 2 puff 05/24/20 01:00 05/28/20 06:36 Albuterol 200 Puff (6.7gm Inhaler) INH 2 puff [id number] STEPH Administration Allopurinol 100 mg 05/24/20 09:00 05/28/20 08:09 Allopurinol 100 Mg Tab PO 100 mg DAILY STEPH Administration Apixaban 2.5 mg 05/26/20 21:00 05/28/20 08:09 Apixaban 2.5 Mg Tab PO 2.5 mg BID STEPH Administration Aspirin 81 mg 05/25/20 09:00 05/28/20 08:09 Aspirin Chewable 81 Mg Tab PO 81 mg DAILY STEPH Administration Atorvastatin Calcium 40 mg 05/20/20 21:00 05/27/20 20:26 Atorvastatin Calcium 40 Mg Tab PO 40 mg HS STEPH Administration Carvedilol 3.125 mg 05/25/20 17:00 05/28/20 08:09 Carvedilol 3.125 Mg Tab PO 3.125 mg BID-WM STEPH Administration Guaifenesin 600 mg 05/26/20 21:00 05/28/20 08:09 Guaifenesin Sf Soln 200 Mg/10 Ml Udcup PER TUBE 600 mg BID STEPH Administration Doxycycline Hyclate 100 mg/ 100 mls @ 100 mls/hr 05/24/20 08:00 05/28/20 08:0 9 Sodium Chloride IVPB 100 mls 0800,1999 STEPH Administration Fentanyl 100 mls @ 0 mls/hr 05/24/20 13:30 05/27/20 23:45 Fentanyl Cadd IV 06/23/20 13:30 100 mls INF STEPH Administration Protocol Per Protocol Cefepime HCl 1 gm/ Sodium 100 mls @ 200 mls/hr 05/27/20 09:00 05/28/20 08:08 Chloride IVPB 100 mls DAILY STEPH Administration Dobutamine HCl/Dextrose 500 mg 250 mls @ 0 mls/hr 05/27/20 13:45 05/28/20 08:08 / Device IVPB 250 mls INF STEPH Administration Protocol As Directed Lorazepam 2 mg 05/24/20 13:30 05/24/20 17:36 Lorazepam 2 Mg/Ml Vial SLOW IVP 06/23/20 13:30 2 mg Q1H PRN Administration Breakthrough agitation Metoclopramide HCl 10 mg 05/26/20 07:30 05/28/20 08:09 Metoclopramide Hcl 10 Mg/2 Ml Vial IVP 10 mg Q6H STEPH Administration Pantoprazole Sodium 40 mg 05/25/20 09:00 05/28/20 08:09 Pantoprazole 40 Mg Vial IVP 40 mg DAILY STEPH Administration Propofol 1,000 mg 05/24/20 13:30 05/28/20 05:50 Propofol 1,000 Mg/100 Ml Vial IV 06/23/20 13:30 1,000 mg INF PRN Administration TO ACHIEVE GOAL RASS Protocol Sodium Chloride 10 ml 05/20/20 09:00 05/28/20 08:10 Flush - Normal Saline 10 Ml Syringe IVF 10 ml Q12HR STEPH Administration Sodium Chloride 10 ml 05/20/20 02:30 05/20/20 17:44 Flush - Normal Saline 10 Ml Syringe IVF 10 ml PRN PRN Administration Saline Flush - Exam General - other findings: sedated Eye: anicteric sclera ENT: normocephalic atraumatic ENT - other findings: ET tube in place Neck: symmetric Respiratory - other findings: coarse ventilator transmitted sound noted Cardiovascular: RRR Gastrointestinal: soft, non-tender, non-distended Extremities - other findings: mild edema of upper limbs Neurological - other findings: sedated. Nephrology Results - Labs Result Diagrams: 05/28/20 02:43 05/28/20 02:43 Lab results: WBC 13.1 thou/uL (4.8-10.8) H 05/28/20 02:43 Hgb 8.7 g/dL (14.0-18.0) L 05/28/20 02:43 Hct 26.9 % (42.0-52.0) L 05/28/20 02:43 MCV 85.8 fL (78.0-98.0) 05/28/20 02:43 Plt Count 248 thou/uL (130-400) 05/28/20 02:43 Neutrophils % 74.9 % (42.0-75.0) 05/28/20 02:43 Band Neuts % (Manual) 1 % (5-11) L 05/20/20 05:33 ABG pH 7.35 (7.35-7.45) 05/28/20 06:30 ABG pCO2 50.1 mmHg (35.0-45.0) H 05/28/20 06:30 ABG pO2 49.4 mmHg (> 70.0) L* 05/28/20 06:30 VBG pH 7.42 (7.32-7.43) 05/24/20 06:30 VBG pCO2 30.9 mmHg (42.0-51.0) L 05/24/20 06:30 VBG pO2 65.3 mmHg (35.0-45.0) H 05/24/20 06:30 Sodium 150 mmol/L (136-145) H 05/28/20 02:43 Potassium 4.5 mmol/L (3.5-5.1) 05/28/20 02:43 Chloride 112 mmol/L (98-107) H 05/28/20 02:43 Carbon Dioxide 27 mmol/L (23-31) 05/28/20 02:43 BUN 80 mg/dL (8.4-25.7) H 05/28/20 02:43 Creatinine 3.42 mg/dL (0.7-1.3) H 05/28/20 02:43 Glucose 79 mg/dL (83-110) L 05/28/20 02:43 Lactic Acid 1.7 mmol/L (0.5-2.2) 05/20/20 01:52 Calcium 8.8 mg/dL (7.8-10.44) 05/28/20 02:43 Total Bilirubin 0.7 mg/dL (0.2-1.2) 05/27/20 03:40 AST 49 U/L (5-34) H 05/27/20 03:40 ALT 96 U/L (8-55) H 05/27/20 03:40 Alkaline Phosphatase 130 U/L (40-110) H 05/27/20 03:40 CK-MB (CK-2) 1.4 ng/mL (0-6.6) 05/19/20 20:40 Troponin I 0.245 ng/mL (< 0.028) H 05/20/20 02:37 C-Reactive Protein 12.35 mg/dL (= or < 0.5) H 05/24/20 04:48 B-Natriuretic Peptide 3710.8 pg/mL (0-100) H 05/23/20 16:22 Serum Total Protein 6.1 g/dL (5.8-8.1) 05/27/20 03:40 Albumin 3.1 g/dL (3.4-4.8) L 05/27/20 03:40 Lipase 4 U/L (8-78) L 05/24/20 04:48 Urine Ketones Negative mg/dL (Negative) 05/25/20 10:00 Urine Blood 1+ (Negative) A 05/25/20 10:00 Urine Nitrite Negative (Negative) 05/25/20 10:00 Ur Leukocyte Esterase 25 Arlene/uL (Negative) A 05/25/20 10:00 Urine RBC 11-20 HPF (0-3) A 05/25/20 10:00 Urine WBC 7-10 HPF (0-3) A 05/25/20 10:00 Ur Squamous Epith Cells None Seen HPF (0-3) 05/25/20 10:00 Urine Bacteria 1+ HPF (None Seen) A 05/25/20 10:00 Sodium 150 mmol/L (136-145) H 05/28/20 02:43 Potassium 4.5 mmol/L (3.5-5.1) 05/28/20 02:43 Chloride 112 mmol/L (98-107) H 05/28/20 02:43 Carbon Dioxide 27 mmol/L (23-31) 05/28/20 02:43 Anion Gap 16 mmol/L (10-20) 05/28/20 02:43 BUN 80 mg/dL (8.4-25.7) H 05/28/20 02:43 Creatinine 3.42 mg/dL (0.7-1.3) H 05/28/20 02:43 Glucose 79 mg/dL (83-110) L 05/28/20 02:43 Calcium 8.8 mg/dL (7.8-10.44) 05/28/20 02:43 Phosphorus 2.5 mg/dL (2.3-4.7) 05/24/20 04:48 Phosphorus Cancelled 05/24/20 04:48 Albumin 3.1 g/dL (3.4-4.8) L 05/27/20 03:40 Nephrology AP PN - Plan MATT: Due to hemodynamic factors related to hypotension, cardiac decompensation and diuretics/RAAS [place]. Creat continues to trend up. Cardiorenal syndrome remained a concern. CKD 3. Presumed Cardiogenic shock. Hypotension improved with dobutamine Hyperkalemia: Resolved. Metabolic acidosis: Resolved with alkali therapy Metabolic alkalosis: Due to Volume contraction. Resolved with albumin. Hypoalbuminemia Hypernatremia Acute respiratory failure requiring intubation Cardiomyopathy with EF of 15% Pulmonary infiltrates. ? Pulmonaray edema from CHF vs infective process. Has remained afebrile and Covid remained negative. Normal procalcitonin makes pulmonary congestion from CHF exacerbation more likely PLAN Start 5dw for hypernatremia. tube feeding was held due to high residuals. Increase lasix to 40 q8h Add metolazone. Continue dobutamine Monitor vitals. Follow I/O, electrolytes and renal function
[2020-05-28] MEDS: Dextrose 5% in Water 1,000 ML IV SCH ×2 (11:48→21:14)
[2020-05-28] MEDS: Furosemide 40 MG/4 ML VIAL SLOW IVP SCH ×2 (14:03→21:04)
--- NOTE | 2020-05-28 17:36 | PRG ---
DATE OF SERVICE: 05/28/2020 SUBJECTIVE: Mr. Lee remains mechanically ventilated. OBJECTIVE: VITAL SIGNS: Respiratory rates in the 20s, FiO2 is at 60, blood pressure 119/65, and heart rate is in the 70s. LUNGS: Clear anteriorly. HEART: Regular rhythm. ABDOMEN: Soft. EXTREMITIES: Without asymmetry. LABORATORY DATA: White count 13.1, hemoglobin 8.7, and platelets 248. Sodium 150, potassium 4.5, chloride 112, bicarb 27, BUN 80, and creatinine 3.42. IMPRESSION: 1. Status post cardiorespiratory arrest with severe decrease in left ventricular ejection fraction, complicated by mitral regurgitation and aortic stenosis. 2. [id number] kidney disease with progressive decline in renal function. 3. 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 4. Hyperosmolar state that is likely iatrogenic. The only caregiver with any type of input would be a niece who said that she would authorize the doctors to do whatever they need to do to take care of him and whatever the doctors felt would be okay with her. I do feel strongly that Mr. Lee should be do not resuscitate patient. He continues to not progress from a neurological standpoint, dialysis should not be offered and consideration towards withdrawal of care should be entertained. Neurology input would be helpful in my opinion. If we are into position when we are making these decisions for the niece. Critical care time 30 min. Job ID: [id number] MTDD
--- NOTE | 2020-05-28 17:43 | PDOC.HOSPP ---
- Subjective Encounter Date: 05/28/20 Encounter Time: 11:20 Subjective: pt intubated - Objective Vital Signs & Weight: Vital Signs (12 hours) Temp Pulse Pulse Pulse Resp BP BP 05/28/20 16:00 22 H 05/28/20 14:08 71 123/65 05/28/20 14:00 14 05/28/20 12:00 14 05/28/20 10:56 72 72 120/62 05/28/20 10:18 72 115/60 05/28/20 09:54 17 05/28/20 08:00 05/28/20 07:47 14 05/28/20 07:00 98.8 F 05/28/20 06:37 70 106/55 L 05/28/20 06:00 28 H BP Pulse Ox Pulse Ox Pulse Ox 05/28/20 16:00 05/28/20 14:08 05/28/20 14:00 05/28/20 12:00 05/28/20 10:56 111/62 92 L 91 L 05/28/20 10:18 05/28/20 09:54 05/28/20 08:00 93 L 05/28/20 07:47 05/28/20 07:00 05/28/20 06:37 05/28/20 06:00 Weight Admit Weight 195 lb 3.408 oz Weight 196 lb 0.32 oz Most Recent Monitor Data Heart Rate from ECG 70 NIBP 120/68 NIBP BP-Mean 85 Respiration from ECG 16 SpO2 94 I&O: 05/27/20 05/28/20 05/29/20 06:59 06:59 06:59 Intake Total 1454.5 823.80 663.8 Output Total 1007 1630 1475 Balance 447.5 -806.20 -811.2 Result Diagrams: 06/01/20 04:00 06/01/20 04:00 Hospitalist ROS - Review of Systems Other: intubated - Medication Medications: Active Medications Generic Name Dose Route Start Last Admin Trade Name Freq PRN Reason Stop Dose Admin Albuterol Sulfate 2 puff 05/24/20 01:00 05/28/20 14:08 Albuterol 200 Puff (6.7gm Inhaler) INH 2 puff [id number] STEPH Administration Allopurinol 100 mg 05/24/20 09:00 05/28/20 08:09 Allopurinol 100 Mg Tab PO 100 mg DAILY STEPH Administration Apixaban 2.5 mg 05/26/20 21:00 05/28/20 08:09 Apixaban 2.5 Mg Tab PO 2.5 mg BID STEPH Administration Aspirin 81 mg 05/25/20 09:00 05/28/20 08:09 Aspirin Chewable 81 Mg Tab PO 81 mg DAILY STEPH Administration Atorvastatin Calcium 40 mg 05/20/20 21:00 05/27/20 20:26 Atorvastatin Calcium 40 Mg Tab PO 40 mg HS STEPH Administration Carvedilol 3.125 mg 05/25/20 17:00 05/28/20 08:09 Carvedilol 3.125 Mg Tab PO 3.125 mg BID-WM STEPH Administration Furosemide 40 mg 05/28/20 14:00 05/28/20 14:03 Furosemide 40 Mg/4 Ml Vial SLOW IVP 40 mg Q8HR STEPH Administration Guaifenesin 600 mg 05/26/20 21:00 05/28/20 08:09 Guaifenesin Sf Soln 200 Mg/10 Ml Udcup PER TUBE 600 mg BID STEPH Administration Doxycycline Hyclate 100 mg/ 100 mls @ 100 mls/hr 05/24/20 08:00 05/28/20 08:09 Sodium Chloride IVPB 100 mls 0800,2000 STEPH Administration Fentanyl 100 mls @ 0 mls/hr 05/24/20 13:30 05/27/20 23:45 Fentanyl Cadd IV 06/23/20 13:30 100 mls INF STEPH Administration Protocol Per Protocol Cefepime HCl 1 gm/ Sodium 100 mls @ 200 mls/hr 05/27/20 09:00 05/28/20 08:08 Chloride IVPB 100 mls DAILY STEPH Administration Dobutamine HCl/Dextrose 500 mg 250 mls @ 0 mls/hr 05/27/20 13:45 05/28/20 08:08 / Device IVPB 250 mls INF STEPH Administration Protocol As Directed Dextrose/Water 1,000 mls @ 100 mls/hr 05/28/20 10:45 05/28/20 11:48 D5w IV 1,000 mls .Q10H STEPH Administration Lorazepam 2 mg 05/24/20 13:30 05/24/20 17:36 Lorazepam 2 Mg/Ml Vial SLOW IVP 06/23/20 13:30 2 mg Q1H PRN Administration Breakthrough agitation Metoclopramide HCl 10 mg 05/26/20 07:30 05/28/20 14:03 Metoclopramide Hcl 10 Mg/2 Ml Vial IVP 10 mg Q6H STEPH Administration Pantoprazole Sodium 40 mg 05/25/20 09:00 05/28/20 08:09 Pantoprazole 40 Mg Vial IVP 40 mg DAILY STEPH Administration Propofol 1,000 mg 05/24/20 13:30 05/28/20 05:50 Propofol 1,000 Mg/100 Ml Vial IV 06/23/20 13:30 1,000 mg INF PRN Administration TO ACHIEVE GOAL RASS Protocol Sodium Chloride 10 ml 05/20/20 09:00 05/28/20 08:10 Flush - Normal Saline 10 Ml Syringe IVF 10 ml Q12HR STEPH Administration Sodium Chloride 10 ml 05/20/20 02:30 05/20/20 17:44 Flush - Normal Saline 10 Ml Syringe IVF 10 ml PRN PRN Administration Saline Flush Hospitalist Exam Vitals: Vital Signs (12 hours) Temp Pulse Pulse Pulse Resp BP BP 05/28/20 16:00 22 H 05/28/20 14:08 71 123/65 05/28/20 14:00 14 05/28/20 12:00 14 05/28/20 10:56 72 72 120/62 05/28/20 10:18 72 115/60 05/28/20 09:54 17 05/28/20 08:00 05/28/20 07:47 14 05/28/20 07:00 98.8 F 05/28/20 06:37 70 106/55 L 05/28/20 06:00 28 H BP Pulse Ox Pulse Ox Pulse Ox 05/28/20 16:00 05/28/20 14:08 05/28/20 14:00 05/28/20 12:00 05/28/20 10:56 111/62 92 L 91 L 05/28/20 10:18 05/28/20 09:54 05/28/20 08:00 93 L 05/28/20 07:47 05/28/20 07:00 05/28/20 06:37 05/28/20 06:00 Weight Admit Weight 195 lb 3.408 oz Weight 196 lb 0.32 oz Most Recent Monitor Data Heart Rate from ECG 70 NIBP 120/68 NIBP BP-Mean 85 Respiration from ECG 16 SpO2 94 Neck: supple Heart: RRR, no murmur, no gallops Respiratory: no wheezes, no rales, no ronchi Gastrointestinal: soft, non-tender, normal bowel sounds Hosp A/P - Plan MATT: Due to hemodynamic factors related to hypotension, cardiac decompensation and diuretics/RAAS [place]. Creat continues to trend up. Cardiorenal syndrome remained a concern. CKD 3. Presumed Cardiogenic shock. Hypotension improved with dobutamine Hyperkalemia: Resolved. Metabolic acidosis: Resolved with alkali therapy Metabolic alkalosis: Due to Volume contraction. Resolved with albumin. Hypoalbuminemia Hypernatremia Acute respiratory failure requiring intubation Cardiomyopathy with EF of 15% Pulmonary infiltrates. ? Pulmonaray edema from CHF vs infective process. Has remained afebrile and Covid remained negative. Normal procalcitonin makes pulmonary congestion from CHF exacerbation more likely PLAN Start 5dw for hypernatremia. tube feeding was held due to high residuals. Increase lasix to 40 q8h Add metolazone. Continue dobutamine Monitor vitals. Follow I/O, electrolytes and renal function 2/ pt diuresing well on dobutamine drip.
[2020-05-28] MEDS: Atorvastatin Calcium 40 MG TAB PO SCH (21:04)
[2020-05-29] MEDS: Albuterol 200 PUFF (6.7GM INHALER) INH SCH ×4 (00:22→19:34)
[2020-05-29] MEDS: Metoclopramide HCl 10 MG/2 ML VIAL IVP SCH ×4 (01:25→20:26)
[2020-05-29] MEDS: DOBUTamine 500 mg/250 ml 500 MG in Premix Bag 1 BAG IVPB SCH (02:31)
[2020-05-29 03:51] LABS: #Eosinphils 0.7 thou/uL (0.0-0.7); #Lymphocytes 1.1 thou/uL (1.20-3.40); #Monocytes 1.3 thou/uL (0.11-0.59); #Neutrophils 13.3 thou/uL (1.40-6.50); %Basophils 0.1 % (0.0-1.0); %Lymphocytes 6.8 % (21.0-51.0); %Monocytes 7.7 % (0.0-10.0); %Neutrophils 81.4 % (42.0-75.0); Hemoglobin 8.5 g/dL (14.0-18.0); Mean Corpuscular HGB CONC 32.4 g/dL (32.0-36.0); Mean Corpuscular Hemoglobin 27.9 pg (27.0-31.0); Mean Corpuscular Volume 85.9 fL (78.0-98.0); Mean Platelet Volume 8.3 fL (7.4-10.4); Platelet Count 226 thou/uL (130-400); Red Blood Cell (RBC) Count 3.06 mill/uL (4.70-6.10); White Blood Cell (WBC) Count 16.4 thou/uL (4.8-10.8)
[2020-05-29 04:11] LABS: Anion Gap 16 mmol/L (10-20); BUN (Urea Nitrogen) 75 mg/dL (8.4-25.7); Calc. Creatinine Clearance 23 mL/min (70-130); Calcium 8.3 mg/dL (7.8-10.44); Carbon Dioxide 25 mmol/L (23-31); Chloride 106 mmol/L (98-107); Glucose 101 mg/dL (83-110); Sodium 143 mmol/L (136-145)
[2020-05-29] MEDS: Furosemide 40 MG/4 ML VIAL SLOW IVP SCH ×3 (05:13→17:15)
[2020-05-29] MEDS: Propofol 1,000 MG/100 ML VIAL IV PRN ×3 (05:47→16:44)
[2020-05-29] MEDS ORDERED: Metolazone 5 MG TAB PO SCH (06:00)
[2020-05-29 06:54] LABS: Actual Bicarbonate (HCO3a) 25.4 mEq/L (22-28); Base Excess (BEa) -0.3 mEq/L (-2.0 to +3.0); CO2 Tension 46.9 mmHg (35.0-45.0); Calcium, Ionized (arterial) 1.12 mmol/L (1.12-1.30); Carboxyhemoglobin (COHb) 0.8 gm% (0.0-3.0); Hemoglobin (Hb) 9.4 g/dL (14.0-18.0); Potassium - ABG Lab 3.91 mmol/L (3.70-5.30); pH, Arterial 7.35 (7.35-7.45)
[2020-05-29 07:37] LABS: ALV-art Gradient 246.675 mmHg (0-20); O2 Tension (PaO2), arterial 51.2 mmHg (> 70.0); Puncture Site LRA
--- NOTE | 2020-05-29 08:02 | RAD ---
XR Chest 1 View Portable HISTORY: Respiratory failure, pneumonia COMPARISON: Previous day FINDINGS: No significant interval change is seen since the previous day's exam. IMPRESSION: Stable exam.
[2020-05-29] MEDS ORDERED: DOBUTamine 500 mg/250 ml 500 MG in Premix Bag 1 BAG IVPB SCH (08:18)
--- NOTE | 2020-05-29 08:26 | PRG ---
DATE OF SERVICE: 05/29/2020 SUBJECTIVE: Mr. Lee remains sedated for ventilation. OBJECTIVE: VITAL SIGNS: Heart rates in the 70s, blood pressure 116/60, respiratory rates in the teens, FiO2 is at 60. Intake and output, negative 231. LUNGS: Remarkable for coarse equal breath sounds. HEART: Regular rhythm. ABDOMEN: Soft. EXTREMITIES: Without asymmetry. LABORATORY STUDIES: White count 16.4, hemoglobin 8.5, and platelets 226. Sodium 143, potassium 4, chloride 106, bicarb 25, BUN 75, and creatinine 3.47. IMPRESSION: 1. Congestive heart failure. 2. Aortic stenosis, mitral regurgitation. 3. Pulmonary edema. 4. Possible coexistent pneumonia. 5. Progressive renal dysfunction. 6. Elevated liver enzymes, most likely from hepatic congestion in my opinion. 7. Respiratory failure, currently not weanable, diffuse infiltrates, and impaired gas exchange. His prognosis for functional recovery is extremely poor. He should be a do not resuscitate status patient. Apparently, the niece has turned over these decisions to the physicians. I would appreciate it if Palliative Care can confirm this. Critical care time 30 min. Job ID: [id number] MTDD
[2020-05-29] MEDS: Apixaban 2.5 MG TAB PO SCH ×2 (08:45→20:27)
[2020-05-29] MEDS: Aspirin Chewable 81 MG TAB PO SCH (08:45)
[2020-05-29] MEDS: Allopurinol 100 MG TAB PO SCH (08:45)
[2020-05-29] MEDS: Carvedilol 3.125 MG TAB PO SCH ×2 (08:45→17:15)
[2020-05-29] MEDS: Cefepime 1 GM in Sodium Chloride 0.9% 100 ML IVPB SCH (08:46)
[2020-05-29] MEDS: Pantoprazole 40 MG VIAL IVP SCH (08:46)
[2020-05-29] MEDS: GUAIFENESIN SF SOLN 200 MG/10 ML UDCUP PER TUBE SCH ×2 (08:47→20:54)
--- NOTE | 2020-05-29 09:40 | PDOC.NEPPN ---
- Subjective Encounter Date: 05/29/20 Subjective: Still intubated and mechanically ventilated. - Objective Vital Signs & Weight: Vital Signs (12 hours) Temp Pulse Resp BP 05/29/20 07:53 15 05/29/20 06:30 76 116/60 05/29/20 06:00 15 05/29/20 04:00 98.9 F 25 H 05/29/20 02:56 74 05/29/20 02:00 23 H 05/29/20 01:00 98.9 F 05/29/20 00:00 25 H 05/28/20 23:05 74 124/62 05/28/20 22:00 28 H Weight Admit Weight 195 lb 3.408 oz Weight 196 lb 0.32 oz Most Recent Monitor Data Heart Rate from ECG 74 NIBP 103/61 NIBP BP-Mean 75 Respiration from ECG 23 SpO2 88 I&O: 05/28/20 05/29/20 05/30/20 06:59 06:59 06:59 Intake Total 823.80 2023.8 264.0 Output Total 1630 2255 300 Balance -806.20 -231.2 -36.0 Result Diagrams: 05/29/20 03:20 05/29/20 03:20 Nephrology ROS - Medication Medications: Active Medications Generic Name Dose Route Start Last Admin Trade Name Freq PRN Reason Stop Dose Admin Albuterol Sulfate 2 puff 05/24/20 01:00 05/29/20 06:30 Albuterol 200 Puff (6.7gm Inhaler) INH 2 puff [id number] STEPH Administration Allopurinol 100 mg 05/24/20 09:00 05/29/20 08:45 Allopurinol 100 Mg Tab PO 100 mg DAILY STEPH Administration Apixaban 2.5 mg 05/26/20 21:00 05/29/20 08:45 Apixaban 2.5 Mg Tab PO 2.5 mg BID STEPH Administration Aspirin 81 mg 05/25/20 09:00 05/29/20 08:45 Aspirin Chewable 81 Mg Tab PO 81 mg DAILY STEPH Administration Atorvastatin Calcium 40 mg 05/20/20 21:00 05/28/20 21:04 Atorvastatin Calcium 40 Mg Tab PO 40 mg HS STEPH Administration Carvedilol 3.125 mg 05/25/20 17:00 05/29/20 08:45 Carvedilol 3.125 Mg Tab PO 3.125 mg BID-WM STEPH Administration Guaifenesin 600 mg 05/26/20 21:00 05/29/20 08:47 Guaifenesin Sf Soln 200 Mg/10 Ml Udcup PER TUBE 600 mg BID STEPH Administration Doxycycline Hyclate 100 mg/ 100 mls @ 100 mls/hr 05/24/20 08:00 05/29/20 08:46 Sodium Chloride IVPB 100 mls 0800,2000 STEPH Administration Fentanyl 100 mls @ 0 mls/hr 05/24/20 13:30 05/27/20 23:45 Fentanyl Cadd IV 06/23/20 13:30 100 mls INF STEPH Administration Protocol Per Protocol Cefepime HCl 1 gm/ Sodium 100 mls @ 200 mls/hr 05/27/20 09:00 05/29/20 08:46 Chloride IVPB 100 mls DAILY STEPH Administration Dextrose/Water 1,000 mls @ 100 mls/hr 05/28/20 10:45 05/28/20 21:14 D5w IV 1,000 mls .Q10H STEPH Administration Lorazepam 2 mg 05/24/20 13:30 05/24/20 17:36 Lorazepam 2 Mg/Ml Vial SLOW IVP 06/23/20 13:30 2 mg Q1H PRN Administration Breakthrough agitation Metoclopramide HCl 10 mg 05/26/20 07:30 05/29/20 08:45 Metoclopramide Hcl 10 Mg/2 Ml Vial IVP 10 mg Q6H STEPH Administration Pantoprazole Sodium 40 mg 05/25/20 09:00 05/29/20 08:46 Pantoprazole 40 Mg Vial IVP 40 mg DAILY STEPH Administration Propofol 1,000 mg 05/24/20 13:30 05/29/20 05:47 Propofol 1,000 Mg/100 Ml Vial IV 06/23/20 13:30 1,000 mg INF PRN Administration TO ACHIEVE GOAL RASS Protocol Sodium Chloride 10 ml 05/20/20 09:00 05/29/20 08:45 Flush - Normal Saline 10 Ml Syringe IVF 10 ml Q12HR STEPH Administration Sodium Chloride 10 ml 05/20/20 02:30 05/20/20 17:44 Flush - Normal Saline 10 Ml Syringe IVF 10 ml PRN PRN Administration Saline Flush - Exam General - other findings: Sedated Eye: anicteric sclera ENT: normocephalic atraumatic ENT - other findings: ET tube in place Neck: symmetric Respiratory - other findings: ventilator transmitted sound noted Cardiovascular: RRR Extremities - other findings: mild bilateral elbow edema Neurological - other findings: sedated and unresponsive Nephrology Results - Labs Result Diagrams: 05/29/20 03:20 05/29/20 03:20 Lab results: WBC 16.4 thou/uL (4.8-10.8) H 05/29/20 03:20 Hgb 8.5 g/dL (14.0-18.0) L 05/29/20 03:20 Hct 26.3 % (42.0-52.0) L 05/29/20 03:20 MCV 85.9 fL (78.0-98.0) 05/29/20 03:20 Plt Count 226 thou/uL (130-400) 05/29/20 03:20 Neutrophils % 81.4 % (42.0-75.0) H 05/29/20 03:20 Band Neuts % (Manual) 1 % (5-11) L 05/20/20 05:33 ABG pH 7.35 (7.35-7.45) 05/29/20 06:30 ABG pCO2 46.9 mmHg (35.0-45.0) H 05/29/20 06:30 ABG pO2 51.2 mmHg (> 70.0) L* 05/29/20 06:30 VBG pH 7.42 (7.32-7.43) 05/24/20 06:30 VBG pCO2 30.9 mmHg (42.0-51.0) L 05/24/20 06:30 VBG pO2 65.3 mmHg (35.0-45.0) H 05/24/20 06:30 Sodium 143 mmol/L (136-145) 05/29/20 03:20 Potassium 4.0 mmol/L (3.5-5.1) 05/29/20 03:20 Chloride 106 mmol/L (98-107) 05/29/20 03:20 Carbon Dioxide 25 mmol/L (23-31) 05/29/20 03:20 BUN 75 mg/dL (8.4-25.7) H 05/29/20 03:20 Creatinine 3.47 mg/dL (0.7-1.3) H 05/29/20 03:20 Glucose 101 mg/dL (83-110) 05/29/20 03:20 Lactic Acid 1.7 mmol/L (0.5-2.2) 05/20/20 01:52 Calcium 8.3 mg/dL (7.8-10.44) 05/29/20 03:20 Total Bilirubin 0.7 mg/dL (0.2-1.2) 05/27/20 03:40 AST 49 U/L (5-34) H 05/27/20 03:40 ALT 96 U/L (8-55) H 05/27/20 03:40 Alkaline Phosphatase 130 U/L (40-110) H 05/27/20 03:40 CK-MB (CK-2) 1.4 ng/mL (0-6.6) 05/19/20 20:40 Troponin I 0.245 ng/mL (< 0.028) H 05/20/20 02:37 C-Reactive Protein 12.35 mg/dL (= or < 0.5) H 05/24/20 04:48 B-Natriuretic Peptide 3710.8 pg/mL (0-100) H 05/23/20 16:22 Serum Total Protein 6.1 g/dL (5.8-8.1) 05/27/20 03:40 Albumin 3.1 g/dL (3.4-4.8) L 05/27/20 03:40 Lipase 4 U/L (8-78) L 05/24/20 04:48 Urine Ketones Negative mg/dL (Negative) 05/25/20 10:00 Urine Blood 1+ (Negative) A 05/25/20 10:00 Urine Nitrite Negative (Negative) 05/25/20 10:00 Ur Leukocyte Esterase 25 Arlene/uL (Negative) A 05/25/20 10:00 Urine RBC 11-20 HPF (0-3) A 05/25/20 10:00 Urine WBC 7-10 HPF (0-3) A 05/25/20 10:00 Ur Squamous Epith Cells None Seen HPF (0-3) 05/25/20 10:00 Urine Bacteria 1+ HPF (None Seen) A 05/25/20 10:00 Sodium 143 mmol/L (136-145) 05/29/20 03:20 Potassium 4.0 mmol/L (3.5-5.1) 05/29/20 03:20 Chloride 106 mmol/L (98-107) 05/29/20 03:20 Carbon Dioxide 25 mmol/L (23-31) 05/29/20 03:20 Anion Gap 16 mmol/L (10-20) 05/29/20 03:20 BUN 75 mg/dL (8.4-25.7) H 05/29/20 03:20 Creatinine 3.47 mg/dL (0.7-1.3) H 05/29/20 03:20 Glucose 101 mg/dL (83-110) 05/29/20 03:20 Calcium 8.3 mg/dL (7.8-10.44) 05/29/20 03:20 Phosphorus 2.5 mg/dL (2.3-4.7) 05/24/20 04:48 Phosphorus Cancelled 05/24/20 04:48 Albumin 3.1 g/dL (3.4-4.8) L 05/27/20 03:40 Nephrology AP PN - Plan MATT: Due to hemodynamic factors related to hypotension, cardiac decompensation and diuretics/RAAS [place]. Creat continues to trend up. Cardiorenal syndrome remained a concern. Creat is still trending up with diuretic. CKD 3. Presumed Cardiogenic shock. Hypotension improved with dobutamine Hyperkalemia: Resolved. Metabolic acidosis: Resolved with alkali therapy Metabolic alkalosis: Due to Volume contraction. Resolved with albumin. Hypoalbuminemia Hypernatremia Acute respiratory failure requiring intubation Cardiomyopathy with EF of 15% Pulmonary infiltrates. ? Pulmonaray edema from CHF vs infective process. Has remained afebrile and Covid remained negative. Normal procalcitonin makes pulmonary congestion from CHF exacerbation more likely PLAN Increase lasix to 40 q6h Increase metolazone to 5 mg daily DC D5W as hypernatremia has resolved. Continue dobutamine Monitor vitals. Follow I/O, electrolytes and renal function
[2020-05-29] MEDS ORDERED: Fentanyl CADD 100 ML ONE (10:02)
[2020-05-29 11:17] LABS: Magnesium 1.9 mg/dL (1.6-2.6); Phosphorus 4.7 mg/dL (2.3-4.7)
--- NOTE | 2020-05-29 15:57 | RAD ---
Exam: 1 view abdomen HISTORY: High TF residual FINDINGS: Nonspecific bowel gas pattern. Nasogastric tube terminates in the distal stomach. No suspic ious densities in the abdomen or pelvis. Moderate fecal material in the right hemicolon There are degenerative changes of the lumbar spine with osteophyte formation Right-sided vascular catheter appears to terminate in the right common iliac arteries Bibasilar opacities are once again demonstrated IMPRESSION: Nonspecific bowel gas pattern.
[2020-05-29] MEDS: Norepinephrine 8 MG/0.9% NS 250 ML IVPB SCH (17:10)
[2020-05-29] MEDS: Dextrose 5% in Water 1,000 ML IV SCH (18:37)
[2020-05-29] MEDS ORDERED: Albumin 25% 25 GM/100 ML BOT IVPB SCH (19:18)
[2020-05-29] MEDS: Atorvastatin Calcium 40 MG TAB PO SCH (20:27)
[2020-05-29] MEDS ORDERED: Metoprolol Tartrate 5 MG/5 ML VIAL IVP PRN (21:55)
[2020-05-30] MEDS: Albuterol 200 PUFF (6.7GM INHALER) INH SCH ×5 (00:02→23:01)
--- NOTE | 2020-05-30 07:19 | CT ---
PRELIMINARY REPORT/[facility]/EMERGENCY AFTER HOURS PROCEDURE This report was discussed with Reji Blank RN by Blnache Acuna on May 30, 2020 01:59:00 CS T. Addendum electronically signed by Blanche Acuna on May 30, 2020 1:59:[address] brain without contrast: Comparison: 05/17/2020 Findings: No intracranial hemorrhage. No mass lesion. No midline shift or herniation. There is attenuation and streak artifact limiting detail at several levels. Raya-white differentiatio n is diffusely indistinct in both cerebral hemispheres but preserved in the cerebellum. There is some raya-white differentiation in the basal ganglia. No hydrocephalus. Chronic damage in the left temporal lobe. The bones, sinuses and soft tissues are otherwise unremarka ble. Impression: Indistinct raya-white differentiation in both cerebral hemispheres. This could be benign artifact. Ea rly edema related to diffuse infarct from hypoperfusion or an anoxic injury can have this appearance. No evidence of hemorrhage. Correlate with clinical symptoms. Consider MRI to further eval uate if indicated. ELECTRONICALLY SIGNED BY: Perry El MD May 30, 2020 1:48:19 AM [employer]OOF [employer]IN COL[employer]OR This report is intended for review by the ordering physician only, in accordance of law. If you recei ve this report in error, please call [facility] at [phone]. FINAL REPORT Exam: Head CT without contrast HISTORY: Deterioration of loss of consciousness COMPARISON: 05/17/2020 FINDINGS: Hemorrhage: No intraparenchymal hemorrhage or extra-axial hematoma. Brain parenchyma: Stable encephalomalacia and gliosis involving the left temporal lobe. Grossly raya- white matter differentiation appears be preserved but is limited due to motion degradation streak artifact. Ventricular system: Ventricles and sulci are patent and symmetric. Calvarium: Intact. Sinuses and mastoid air cells: Bilateral opacification of the mastoid air cells. Bilateral middle ear opacification. IMPRESSION: 1. This report is in agreement with initial report by [facility]. Limited evaluation due to alfredo m attenuation artifact and motion attenuation artifact. 2. Questionable loss of raya-white matter differentiation. Further evaluation with brain MRI is recom mended. 3. Bilateral otomastoiditis. Transcribed Date/Time: 05/30/2020 7:38 AM
[2020-05-30 07:22] LABS: #Eosinphils 0.4 thou/uL (0.0-0.7); #Lymphocytes 1.1 thou/uL (1.20-3.40); #Monocytes 1.1 thou/uL (0.11-0.59); #Neutrophils 16.8 thou/uL (1.40-6.50); %Basophils 0.1 % (0.0-1.0); %Eosinophils 2.1 % (0.0-10.0); %Lymphocytes 5.7 % (21.0-51.0); %Monocytes 5.9 % (0.0-10.0); %Neutrophils 86.2 % (42.0-75.0); Hemoglobin 9.3 g/dL (14.0-18.0); Mean Corpuscular HGB CONC 31.7 g/dL (32.0-36.0); Mean Corpuscular Hemoglobin 27.6 pg (27.0-31.0); Mean Corpuscular Volume 87.1 fL (78.0-98.0); Mean Platelet Volume 8.4 fL (7.4-10.4); Platelet Count 256 thou/uL (130-400); RBC Distribution Width 15.2 % (11.5-14.5); Red Blood Cell (RBC) Count 3.37 mill/uL (4.70-6.10); White Blood Cell (WBC) Count 19.5 thou/uL (4.8-10.8)
[2020-05-30 07:24] LABS: Anion Gap 20 mmol/L (10-20); BUN (Urea Nitrogen) 81 mg/dL (8.4-25.7); Calc. Creatinine Clearance 18 mL/min (70-130); Calcium 8.8 mg/dL (7.8-10.44); Carbon Dioxide 24 mmol/L (23-31); Chloride 102 mmol/L (98-107); Glucose 116 mg/dL (83-110); Potassium 4.5 mmol/L (3.5-5.1); Sodium 141 mmol/L (136-145)
--- NOTE | 2020-05-30 07:38 | RAD ---
Chest AP view INDICATION: History of pneumonia COMPARISON: May 29, 2020 FINDINGS: Lungs: Bilateral airspace disease persists. Patient remains intubated with gastric catheter placemen t. Cardiac silhouette: Mild cardiomegaly persists Pulmonary vasculature: Mild pulmonary vascular congestion persists Pleural spaces: No pleural effusion or pneumothorax is demonstrated. Upper abdomen: No abnormality seen. Osseous structures: No acute osseous abnormality. Additional findings: None. IMPRESSION: Stable exam. No pneumothorax.
[2020-05-30] MEDS ORDERED: Digoxin 0.5 MG/2 ML AMP SLOW IVP SCH (08:15)
[2020-05-30] MEDS: Furosemide 40 MG/4 ML VIAL SLOW IVP SCH ×4 (08:40→17:38)
[2020-05-30] MEDS: Metoclopramide HCl 10 MG/2 ML VIAL IVP SCH ×4 (08:41→21:43)
[2020-05-30] MEDS: Dextrose 5% in Water 1,000 ML IV SCH ×3 (09:49→17:45)
[2020-05-30] MEDS: Apixaban 2.5 MG TAB PO SCH ×2 (09:50→21:42)
[2020-05-30] MEDS: Carvedilol 3.125 MG TAB PO SCH ×2 (09:50→15:50)
[2020-05-30] MEDS: Aspirin Chewable 81 MG TAB PO SCH (09:50)
[2020-05-30] MEDS: Allopurinol 100 MG TAB PO SCH (09:50)
[2020-05-30] MEDS: Cefepime 1 GM in Sodium Chloride 0.9% 100 ML IVPB SCH (09:51)
[2020-05-30] MEDS: Pantoprazole 40 MG VIAL IVP SCH (09:51)
[2020-05-30] MEDS: GUAIFENESIN SF SOLN 200 MG/10 ML UDCUP PER TUBE SCH ×2 (09:59→22:38)
--- NOTE | 2020-05-30 14:47 | PRG ---
DATE OF SERVICE: 05/30/2020 SUBJECTIVE: Ashish Lee remains mechanically ventilated. OBJECTIVE: VITAL SIGNS: Heart rate is 111, oximetry is 100%, blood pressure 108/65. LUNGS: Remarkable for equal breath sounds. HEART: Regular rhythm. ABDOMEN: Soft. EXTREMITIES: Without asymmetry. DIAGNOSTIC STUDIES: Chest radiograph shows diffuse infiltrates. LABORATORY DATA: White count 19.5, hemoglobin 9.3, and platelets 256. Sodium 141, potassium 4.5, chloride 102, bicarb 24, BUN 81, and creatinine 4.42. IMPRESSION: 1. Respiratory failure associated with a code. 2. Progressive renal failure. 3. Diffuse infiltrates, most likely secondary to refractory congestive heart failure. 4. Aortic stenosis. 5. Mitral regurgitation. 6. Left ventricular systolic dysfunction. 7. Probable anoxic brain injury. PLAN: After multiple codes, leading to transfer to the critical care unit, we will continue to follow. Critical care time 30 min. Job ID: [id number] MTDD
[2020-05-30] MEDS: Norepinephrine 8 MG/0.9% NS 250 ML IVPB SCH (15:05)
[2020-05-30] MEDS ORDERED: Bisacodyl 10 MG SUPP PR PRN (15:31)
--- NOTE | 2020-05-30 15:37 | PDOC.NEPPN ---
- Subjective Encounter Date: 05/30/20 Subjective: Still intubated and mechanically ventilated. Developed hypotension and atrial fibrillation. Now on levophed. Urine output dropped significantly afterwards despite diuretics. - Objective Vital Signs & Weight: Vital Signs (12 hours) Temp Pulse Pulse Pulse Resp BP BP 05/30/20 14:38 103 H 05/30/20 14:00 14 05/30/20 12:00 14 05/30/20 10:45 111 H 05/30/20 10:11 104 H 109 H 119/68 104/66 05/30/20 10:00 17 05/30/20 09:50 121 H 05/30/20 08:00 98.7 F 120 H 16 Pulse Ox Pulse Ox Pulse Ox 05/30/20 14:38 05/30/20 14:00 05/30/20 12:00 05/30/20 10:45 05/30/20 10:11 98 97 05/30/20 10:00 05/30/20 09:50 05/30/20 08:00 91 L Weight Admit Weight 195 lb 3.408 oz Weight 208 lb 1.862 oz Most Recent Monitor Data Heart Rate from ECG 95 NIBP 105/65 NIBP BP-Mean 78 Respiration from ECG 12 SpO2 97 I&O: 05/29/20 05/30/20 05/31/20 06:59 06:59 06:59 Intake Total 2023.8 1584.0 246 Output Total 2255 1015 30 Balance -231.2 569.0 216 Result Diagrams: 05/30/20 04:15 05/30/20 04:15 Nephrology ROS - Medication Medications: Active Medications Generic Name Dose Route Start Last Admin Trade Name Freq PRN Reason Stop Dose Admin Albuterol Sulfate 2 puff 05/24/20 01:00 05/30/20 14:34 Albuterol 200 Puff (6.7gm Inhaler) INH 2 puff [id number] STEPH Administration Allopurinol 100 mg 05/24/20 09:00 05/30/20 09:50 Allopurinol 100 Mg Tab PO 100 mg DAILY STEPH Administration Apixaban 2.5 mg 05/26/20 21:00 05/30/20 09:50 Apixaban 2.5 Mg Tab PO 2.5 mg BID STEPH Administration Aspirin 81 mg 05/25/20 09:00 05/30/20 09:50 Aspirin Chewable 81 Mg Tab PO 81 mg DAILY STEPH Administration Atorvastatin Calcium 40 mg 05/20/20 21:00 05/29/20 20:27 Atorvastatin Calcium 40 Mg Tab PO 40 mg HS STEPH Administration Carvedilol 3.125 mg 05/25/20 17:00 05/30/20 09:50 Carvedilol 3.125 Mg Tab PO 3.125 mg BID-WM STEPH Administration Furosemide 40 mg 05/29/20 12:00 05/30/20 10:52 Furosemide 40 Mg/4 Ml Vial SLOW IVP Not Given Q6H STEPH Guaifenesin 600 mg 05/26/20 21:00 05/30/20 09:59 Guaifenesin Sf Soln 200 Mg/10 Ml Udcup PER TUBE 600 mg BID STEPH Administration Doxycycline Hyclate 100 mg/ 100 mls @ 100 mls/hr 05/24/20 08:00 05/30/20 09:50 Sodium Chloride IVPB 100 mls 0800,2000 STEPH Administration Fentanyl 100 mls @ 0 mls/hr 05/24/20 13:30 05/27/20 23:45 Fentanyl Cadd IV 06/23/20 13:30 100 mls INF STEPH Administration Protocol Per Protocol Cefepime HCl 1 gm/ Sodium 100 mls @ 200 mls/hr 05/27/20 09:00 05/30/20 09:51 Chloride IVPB 100 mls DAILY STEPH Administration Norepinephrine Bitartrate 250 mls @ 0 mls/hr 05/27/20 10:45 05/30/20 15:05 Levophed IVPB 250 mls INF STEPH Administration Protocol Titrate Dextrose/Water 1,000 mls @ 100 mls/hr 05/28/20 10:45 05/30/20 11:59 D5w IV 1,000 mls .Q10H STEPH Administration Lorazepam 2 mg 05/24/20 13:30 05/24/20 17:36 Lorazepam 2 Mg/Ml Vial SLOW IVP 06/23/20 13:30 2 mg Q1H PRN Administration Breakthrough agitation Metoclopramide HCl 10 mg 05/26/20 07:30 05/30/20 14:19 Metoclopramide Hcl 10 Mg/2 Ml Vial IVP 10 mg Q6H STEPH Administration Propofol 1,000 mg 05/24/20 13:30 05/29/20 16:44 Propofol 1,000 Mg/100 Ml Vial IV 06/23/20 13:30 1,000 mg INF PRN Administration TO ACHIEVE GOAL RASS Protocol Sodium Chloride 10 ml 05/20/20 09:00 05/30/20 09:56 Flush - Normal Saline 10 Ml Syringe IVF 10 ml Q12HR STEPH Administration Sodium Chloride 10 ml 05/20/20 02:30 05/20/20 17:44 Flush - Normal Saline 10 Ml Syringe IVF 10 ml PRN PRN Administration Saline Flush - Exam General - other findings: unresponsive ENT: normocephalic atraumatic Neck: symmetric Respiratory - other findings: ventilator transmitted sound noted Cardiovascular: irregular Gastrointestinal: soft Extremities - other findings: edema of the extremities noted Neurological - other findings: unresponsive. Nephrology Results - Labs Result Diagrams: 05/30/20 04:15 05/30/20 04:15 Lab results: WBC 19.5 thou/uL (4.8-10.8) H 05/30/20 04:15 Hgb 9.3 g/dL (14.0-18.0) L 05/30/20 04:15 Hct 29.3 % (42.0-52.0) L 05/30/20 04:15 MCV 87.1 fL (78.0-98.0) 05/30/20 04:15 Plt Count 256 thou/uL (130-400) 05/30/20 04:15 Neutrophils % 86.2 % (42.0-75.0) H 05/30/20 04:15 Band Neuts % (Manual) 1 % (5-11) L 05/20/20 05:33 ABG pH 7.35 (7.35-7.45) 05/29/20 06:30 ABG pCO2 46.9 mmHg (35.0-45.0) H 05/29/20 06:30 ABG pO2 51.2 mmHg (> 70.0) L* 05/29/20 06:30 VBG pH 7.42 (7.32-7.43) 05/24/20 06:30 VBG pCO2 30.9 mmHg (42.0-51.0) L 05/24/20 06:30 VBG pO2 65.3 mmHg (35.0-45.0) H 05/24/20 06:30 Sodium 141 mmol/L (136-145) 05/30/20 04:15 Potassium 4.5 mmol/L (3.5-5.1) 05/30/20 04:15 Chloride 102 mmol/L (98-107) 05/30/20 04:15 Carbon Dioxide 24 mmol/L (23-31) 05/30/20 04:15 BUN 81 mg/dL (8.4-25.7) H 05/30/20 04:15 Creatinine 4.42 mg/dL (0.7-1.3) H 05/30/20 04:15 Glucose 116 mg/dL (83-110) H 05/30/20 04:15 Lactic Acid 1.7 mmol/L (0.5-2.2) 05/20/20 01:52 Calcium 8.8 mg/dL (7.8-10.44) 05/30/20 04:15 Total Bilirubin 0.7 mg/dL (0.2-1.2) 05/27/20 03:40 AST 49 U/L (5-34) H 05/27/20 03:40 ALT 96 U/L (8-55) H 05/27/20 03:40 Alkaline Phosphatase 130 U/L (40-110) H 05/27/20 03:40 CK-MB (CK-2) 1.4 ng/mL (0-6.6) 05/19/20 20:40 Troponin I 0.245 ng/mL (< 0.028) H 05/20/20 02:37 C-Reactive Protein 12.35 mg/dL (= or < 0.5) H 05/24/20 04:48 B-Natriuretic Peptide 3710.8 pg/mL (0-100) H 05/23/20 16:22 Serum Total Protein 6.1 g/dL (5.8-8.1) 05/27/20 03:40 Albumin 3.1 g/dL (3.4-4.8) L 05/27/20 03:40 Lipase 4 U/L (8-78) L 05/24/20 04:48 Urine Ketones Negative mg/dL (Negative) 05/25/20 10:00 Urine Blood 1+ (Negative) A 05/25/20 10:00 Urine Nitrite Negative (Negative) 05/25/20 10:00 Ur Leukocyte Esterase 25 Arlene/uL (Negative) A 05/25/20 10:00 Urine RBC 11-20 HPF (0-3) A 05/25/20 10:00 Urine WBC 7-10 HPF (0-3) A 05/25/20 10:00 Ur Squamous Epith Cells None Seen HPF (0-3) 05/25/20 10:00 Urine Bacteria 1+ HPF (None Seen) A 05/25/20 10:00 Sodium 141 mmol/L (136-145) 05/30/20 04:15 Potassium 4.5 mmol/L (3.5-5.1) 05/30/20 04:15 Chloride 102 mmol/L (98-107) 05/30/20 04:15 Carbon Dioxide 24 mmol/L (23-31) 05/30/20 04:15 Anion Gap 20 mmol/L (10-20) 05/30/20 04:15 BUN 81 mg/dL (8.4-25.7) H 05/30/20 04:15 Creatinine 4.42 mg/dL (0.7-1.3) H 05/30/20 04:15 Glucose 116 mg/dL (83-110) H 05/30/20 04:15 Calcium 8.8 mg/dL (7.8-10.44) 05/30/20 04:15 Phosphorus 4.7 mg/dL (2.3-4.7) 05/29/20 03:20 Magnesium 1.9 mg/dL (1.6-2.6) 05/29/20 03:20 Albumin 3.1 g/dL (3.4-4.8) L 05/27/20 03:40 Nephrology AP PN - Plan MATT: Due to hemodynamic factors related to hypotension, cardiac decompensation and diuretics/RAAS [place]. Creat continues to trend up. Cardiorenal syndrome remained a concern. Had another hypotensive episode and now on levophed. Creat is still trending up. CKD 3. Presumed Cardiogenic shock. Hypotension improved with dobutamine. However developed atrial fib and hypotension hence now on levophed. Hyperkalemia: Resolved. Metabolic acidosis: Resolved with alkali therapy Metabolic alkalosis: Due to Volume contraction. Resolved Hypoalbuminemia Hypernatremia Acute respiratory failure requiring intubation Cardiomyopathy with EF of 15% Valvular heart disease: Moderate aortic stenosis/regurgitation as well as moderate mitral regurgitation Pulmonary infiltrates. From CHF most likely. Has normal procalcitonin,remained afebrile and Covid remained negative. PLAN Will give a dose of lasix 80 mg IV x 1 and monitor response. Lasix was held earlier on due to hypotension. Follow I/O, electrolytes and renal function Critically ill with guarded prognosis at best.
[2020-05-30] MEDS ORDERED: Furosemide 100 MG/10 ML VIAL SLOW IVP SCH (15:45)
[2020-05-30] MEDS ORDERED: Bisacodyl 5 MG TAB PO SCH (15:45)
[2020-05-30] MEDS: Atorvastatin Calcium 40 MG TAB PO SCH (21:42)
[2020-05-31] MEDS: Metoclopramide HCl 10 MG/2 ML VIAL IVP SCH ×4 (03:11→19:20)
[2020-05-31 04:34] LABS: #Eosinphils 0.4 thou/uL (0.0-0.7); #Lymphocytes 1.3 thou/uL (1.20-3.40); #Monocytes 1.1 thou/uL (0.11-0.59); #Neutrophils 13.8 thou/uL (1.40-6.50); %Eosinophils 2.3 % (0.0-10.0); %Monocytes 6.8 % (0.0-10.0); Mean Corpuscular HGB CONC 32.1 g/dL (32.0-36.0); Mean Corpuscular Hemoglobin 27.9 pg (27.0-31.0); Mean Corpuscular Volume 87.2 fL (78.0-98.0); Mean Platelet Volume 8.4 fL (7.4-10.4); Platelet Count 218 thou/uL (130-400); RBC Distribution Width 14.9 % (11.5-14.5); Red Blood Cell (RBC) Count 3.22 mill/uL (4.70-6.10); White Blood Cell (WBC) Count 16.7 thou/uL (4.8-10.8)
[2020-05-31 04:37] LABS: Anion Gap 19 mmol/L (10-20); BUN (Urea Nitrogen) 92 mg/dL (8.4-25.7); Calc. Creatinine Clearance 14 mL/min (70-130); Calcium 8.6 mg/dL (7.8-10.44); Carbon Dioxide 24 mmol/L (23-31); Chloride 100 mmol/L (98-107); Glucose 97 mg/dL (83-110); Potassium 4.7 mmol/L (3.5-5.1); Sodium 138 mmol/L (136-145)
[2020-05-31] MEDS: Albuterol 200 PUFF (6.7GM INHALER) INH SCH ×3 (07:13→18:15)
--- NOTE | 2020-05-31 08:10 | RAD ---
Portable frontal chest radiograph: 05/31/2020 COMPARISON: 05/30/2020 HISTORY: Reevaluate pneumonia FINDINGS: Stable endotracheal tube and nasogastric tube. There is diffuse coarse linear interstitial density with superimposed airspace disease throughout both lungs, left greater than right, with a perihilar/bibasilar predominance. These findings do not appear significantly changed. IMPRESSION: No significant interval change.
[2020-05-31] MEDS: Cefepime 1 GM in Sodium Chloride 0.9% 100 ML IVPB SCH (08:55)
--- NOTE | 2020-05-31 10:40 | PRG ---
DATE OF SERVICE: 05/31/2020 SUBJECTIVE: Ashish Lee opens his eyes, but does not follow commands. He does not make eye contact. OBJECTIVE: LUNGS: He has equal breath sounds. HEART: Regular rhythm. ABDOMEN: Soft. EXTREMITIES: Without asymmetry. LABORATORY DATA: White count 16.7, hemoglobin 9, and platelets 218. Sodium 130, potassium 4.7, chloride 100, bicarb 24, BUN 92, and creatinine 5.8. Intake and outputs, positive 2832. He has only had 70 mL of urine out. IMPRESSION AND PLAN: 1. Acute renal failure. 2. Systolic cardiomyopathy. 3. Aortic stenosis. 4. Mitral regurgitation. 5. Anoxic brain injury after a code. He should not be dialyzed in my opinion. He is off his pressors this morning. We will continue with supportive and comfort care. I do not expect him to survive this illness. Critical care time 30 min. Job ID: [id number] MTDD
--- NOTE | 2020-05-31 10:43 | PDOC.NEPPN ---
- Subjective Encounter Date: 05/31/20 Subjective: Still intubated and mechanically ventilated. Made only about 100 cc of urine after lasix 80 mg. - Objective Vital Signs & Weight: Vital Signs (12 hours) Temp Pulse Resp 05/31/20 09:58 17 05/31/20 08:00 97.2 F L 24 H 05/31/20 07:14 71 05/31/20 05:54 14 05/31/20 04:00 98.6 F 05/31/20 03:40 14 05/31/20 02:18 71 05/31/20 02:00 14 05/31/20 00:00 98.6 F 14 05/30/20 22:59 71 Weight Admit Weight 195 lb 3.408 oz Weight 208 lb 12.444 oz Most Recent Monitor Data Heart Rate from ECG 74 NIBP 119/57 NIBP BP-Mean 77 Respiration from ECG 15 SpO2 94 I&O: 05/30/20 05/31/20 06/01/20 06:59 06:59 06:59 Intake Total 1584.0 2902.1 Output Total 1015 70 1200 Balance 569.0 2832.1 -1200 Result Diagrams: 05/31/20 03:40 05/31/20 03:40 Nephrology ROS - Medication Medications: Active Medications Generic Name Dose Route Start Last Admin Trade Name Freq PRN Reason Stop Dose Admin Albuterol Sulfate 2 puff 05/24/20 01:00 05/31/20 07:13 Albuterol 200 Puff (6.7gm Inhaler) INH 2 puff [id number] STEPH Administration Allopurinol 100 mg 05/24/20 09:00 05/30/20 09:50 Allopurinol 100 Mg Tab PO 100 mg DAILY STEPH Administration Aspirin 81 mg 05/25/20 09:00 05/30/20 09:50 Aspirin Chewable 81 Mg Tab PO 81 mg DAILY STEPH Administration Atorvastatin Calcium 40 mg 05/20/20 21:00 05/30/20 21:42 Atorvastatin Calcium 40 Mg Tab PO 40 mg HS STEPH Administration Carvedilol 3.125 mg 05/25/20 17:00 05/30/20 15:50 Carvedilol 3.125 Mg Tab PO 3.125 mg BID-WM STEPH Administration Guaifenesin 600 mg 05/26/20 21:00 05/30/20 22:38 Guaifenesin Sf Soln 200 Mg/10 Ml Udcup PER TUBE 600 mg BID STEPH Administration Doxycycline Hyclate 100 mg/ 100 mls @ 100 mls/hr 05/24/20 08:00 05/31/20 08:55 Sodium Chloride IVPB 100 mls 0800,2000 STEPH Administration Fentanyl 100 mls @ 0 mls/hr 05/24/20 13:30 05/27/20 23:45 Fentanyl Cadd IV 06/23/20 13:30 100 mls INF STEPH Administration Protocol Per Protocol Cefepime HCl 1 gm/ Sodium 100 mls @ 200 mls/hr 05/27/20 09:00 05/31/20 08:55 Chloride IVPB 100 mls DAILY STEPH Administration Norepinephrine Bitartrate 250 mls @ 0 mls/hr 05/27/20 10:45 05/30/20 15:05 Levophed IVPB 250 mls INF STEPH Administration Protocol Titrate Dextrose/Water 1,000 mls @ 50 mls/hr 05/30/20 17:50 05/30/20 17:45 D5w IV 1,000 mls .Q20H STEPH Administration Lorazepam 2 mg 05/24/20 13:30 05/24/20 17:36 Lorazepam 2 Mg/Ml Vial SLOW IVP 06/23/20 13:30 2 mg Q1H PRN Administration Breakthrough agitation Metoclopramide HCl 10 mg 05/26/20 07:30 05/31/20 08:55 Metoclopramide Hcl 10 Mg/2 Ml Vial IVP 10 mg Q6H STEPH Administration Propofol 1,000 mg 05/24/20 13:30 05/29/20 16:44 Propofol 1,000 Mg/100 Ml Vial IV 06/23/20 13:30 1,000 mg INF PRN Administration TO ACHIEVE GOAL RASS Protocol Sodium Chloride 10 ml 05/20/20 09:00 05/31/20 09:02 Flush - Normal Saline 10 Ml Syringe IVF 10 ml Q12HR STEPH Administration Sodium Chloride 10 ml 05/20/20 02:30 05/20/20 17:44 Flush - Normal Saline 10 Ml Syringe IVF 10 ml PRN PRN Administration Saline Flush - Exam General - other findings: unresponsive Eye: anicteric sclera ENT: normocephalic atraumatic ENT - other findings: ET tube is in place Neck: symmetric Respiratory - other findings: ventilator transmitted sound noted Gastrointestinal: soft, non-distended, diminished bowl sounds Extremities - other findings: edema of the upper extremities noted Neurological - other findings: unresponsive Nephrology Results - Labs Result Diagrams: 05/31/20 03:40 05/31/20 03:40 Lab results: WBC 16.7 thou/uL (4.8-10.8) H 05/31/20 03:40 Hgb 9.0 g/dL (14.0-18.0) L 05/31/20 03:40 Hct 28.1 % (42.0-52.0) L 05/31/20 03:40 MCV 87.2 fL (78.0-98.0) 05/31/20 03:40 Plt Count 218 thou/uL (130-400) 05/31/20 03:40 Neutrophils % 83.0 % (42.0-75.0) H 05/31/20 03:40 Band Neuts % (Manual) 1 % (5-11) L 05/20/20 05:33 ABG pH 7.35 (7.35-7.45) 05/29/20 06:30 ABG pCO2 46.9 mmHg (35.0-45.0) H 05/29/20 06:30 ABG pO2 51.2 mmHg (> 70.0) L* 05/29/20 06:30 VBG pH 7.42 (7.32-7.43) 05/24/20 06:30 VBG pCO2 30.9 mmHg (42.0-51.0) L 05/24/20 06:30 VBG pO2 65.3 mmHg (35.0-45.0) H 05/24/20 06:30 Sodium 138 mmol/L (136-145) 05/31/20 03:40 Potassium 4.7 mmol/L (3.5-5.1) 05/31/20 03:40 Chloride 100 mmol/L (98-107) 05/31/20 03:40 Carbon Dioxide 24 mmol/L (23-31) 05/31/20 03:40 BUN 92 mg/dL (8.4-25.7) H 05/31/20 03:40 Creatinine 5.80 mg/dL (0.7-1.3) H 05/31/20 03:40 Glucose 97 mg/dL (83-110) 05/31/20 03:40 Lactic Acid 1.7 mmol/L (0.5-2.2) 05/20/20 01:52 Calcium 8.6 mg/dL (7.8-10.44) 05/31/20 03:40 Total Bilirubin 0.7 mg/dL (0.2-1.2) 05/27/20 03:40 AST 49 U/L (5-34) H 05/27/20 03:40 ALT 96 U/L (8-55) H 05/27/20 03:40 Alkaline Phosphatase 130 U/L (40-110) H 05/27/20 03:40 CK-MB (CK-2) 1.4 ng/mL (0-6.6) 05/19/20 20:40 Troponin I 0.245 ng/mL (< 0.028) H 05/20/20 02:37 C-Reactive Protein 12.35 mg/dL (= or < 0.5) H 05/24/20 04:48 B-Natriuretic Peptide 3710.8 pg/mL (0-100) H 05/23/20 16:22 Serum Total Protein 6.1 g/dL (5.8-8.1) 05/27/20 03:40 Albumin 3.1 g/dL (3.4-4.8) L 05/27/20 03:40 Lipase 4 U/L (8-78) L 05/24/20 04:48 Urine Ketones Negative mg/dL (Negative) 05/25/20 10:00 Urine Blood 1+ (Negative) A 05/25/20 10:00 Urine Nitrite Negative (Negative) 05/25/20 10:00 Ur Leukocyte Esterase 25 Arlene/uL (Negative) A 05/25/20 10:00 Urine RBC 11-20 HPF (0-3) A 05/25/20 10:00 Urine WBC 7-10 HPF (0-3) A 05/25/20 10:00 Ur Squamous Epith Cells None Seen HPF (0-3) 05/25/20 10:00 Urine Bacteria 1+ HPF (None Seen) A 05/25/20 10:00 Sodium 138 mmol/L (136-145) 05/31/20 03:40 Potassium 4.7 mmol/L (3.5-5.1) 05/31/20 03:40 Chloride 100 mmol/L (98-107) 05/31/20 03:40 Carbon Dioxide 24 mmol/L (23-31) 05/31/20 03:40 Anion Gap 19 mmol/L (10-20) 05/31/20 03:40 BUN 92 mg/dL (8.4-25.7) H 05/31/20 03:40 Creatinine 5.80 mg/dL (0.7-1.3) H 05/31/20 03:40 Glucose 97 mg/dL (83-110) 05/31/20 03:40 Calcium 8.6 mg/dL (7.8-10.44) 05/31/20 03:40 Phosphorus 4.7 mg/dL (2.3-4.7) 05/29/20 03:20 Magnesium 1.9 mg/dL (1.6-2.6) 05/29/20 03:20 Albumin 3.1 g/dL (3.4-4.8) L 05/27/20 03:40 Nephrology AP PN - Plan Acute renal failure: Due to hemodynamic factors related to hypotension, cardiac decompensation and diuretics/RAAS [place] with superimposed ATN. Creat continues to trend up. Creat is still trending up. Now anuric. CKD 3. Presumed Cardiogenic shock. S/p Dobutamin and later Levophed. Off Levophed Hyperkalemia: Resolved. Metabolic acidosis: Resolved with alkali therapy Metabolic alkalosis: Due to Volume contraction. Resolved Hypoalbuminemia Hypernatremia Acute respiratory failure requiring intubation Cardiomyopathy with EF of 15% Valvular heart disease: Moderate aortic stenosis/regurgitation as well as moderate mitral regurgitation Pulmonary infiltrates. From CHF most likely. Had normal procalcitonin,remained afebrile and Covid remained negative. PLAN No nindication for emergent dialysis today as electrolytes are acceptable. Discussed acute renal filure in relation to advance CHF and other medical conditions with patient Surrogate decision maker. She is inclinded to continuation of aggressive treatment including HD. Family meeting with surrogate decision maker is planned today. Continue supportive care. Further direction to be obtained after family meeting. Follow I/O, electrolytes and renal function Critically ill with guarded prognosis at best.
[2020-05-31] MEDS: Carvedilol 3.125 MG TAB PO SCH ×2 (11:12→18:24)
[2020-05-31] MEDS: GUAIFENESIN SF SOLN 200 MG/10 ML UDCUP PER TUBE SCH ×2 (11:13→21:24)
[2020-05-31] MEDS: Aspirin Chewable 81 MG TAB PO SCH (11:13)
[2020-05-31] MEDS: Pantoprazole 40 MG GRANULES PACKET PER TUBE SCH (11:13)
[2020-05-31] MEDS: Allopurinol 100 MG TAB PO SCH (11:13)
[2020-05-31] MEDS ORDERED: Fentanyl CADD 100 ML ONE (12:06)
[2020-05-31] MEDS: Fentanyl CADD 100 ML IV SCH (12:07)
--- NOTE | 2020-05-31 12:54 | PDOC.PALCO ---
Palliative Care Consult - Consult Details Requesting Physician: Dr Dale/Hospitalist Reason for Consult: goals of care, complex decision-making - Pertinent HPI 75 year old male who has a significant medical history including cardiomyopathy, ER 10-15%, DM, CKD show initially presented to [place] emergency room for increase in altered mental status and unresolving pneumonia. Negative for nausea, vomiting. Prior admission for heart failure/covid pneumonia. After evaluation at the [place] ER he was identified to have worsening pneumonia with sepsis. Transferred to [facility] for higher level of care. Despite aggressive measures patient required intubation to sustain airway and optimal lung perfusion. - Pertinent PMH DM, Schizophrenia, Atrial Fib, Dementia, cardiomyopathy, CKD - Social History Smoking: no tobacco exposure Alcohol Use: none Drug Use History: none Living Situation: other (LIves with neice) - Medications MAR Reviewed: Yes - Allergies Allergies/Adverse Reactions: Allergies Allergy/AdvReac Type Severity Reaction Status Date / Time No Known Allergies Allergy Verified 02/13/20 12:31 - Subjective Intubated, mechanical ventilation. Opens eyes, however no purposeful engagement - ROS Non Response: due to endotracheal tube, due to mental status - Objective Vital Signs: Vital Signs - Most Recent Temp Pulse Resp BP Pulse Ox 96.4 F L 76 17 119/68 95 05/31/20 11:00 05/31/20 10:57 05/31/20 12:00 05/30/20 10:11 05/31/20 08:00 Palliative Performance Scale: 10 - Physical Exam Constitutional: encephalitic, ill appearing HEENT: moist MMs, sclera anicteric Respiratory: no wheezing Deviation from normal: Mechanical ventilation Cardiovascular: no significant murmur, RRR Gastrointestinal: soft, non-tender Genitourinary: vance catheter Musculoskeletal: no cyanosis, no clubbing, diffuse muscle atrophy Deviation from normal: Facial symmetry Skin: cap refill <2 seconds, no lesions Deviation from normal: encephalopathic - Problem List (1) Palliative care encounter Code(s): Z51.5 - ENCOUNTER FOR PALLIATIVE CARE Current Visit: Yes Status: Acute (2) Acute respiratory failure with hypoxia and hypercarbia Code(s): J96.01 - ACUTE RESPIRATORY FAILURE WITH HYPOXIA; J96.02 - ACUTE RESPIRATORY FAILURE WITH HYPERCAPNIA Current Visit: Yes Status: Acute (3) Altered mental status Code(s): R41.82 - ALTERED MENTAL STATUS, UNSPECIFIED Current Visit: Yes Status: Acute (4) Pneumonia Code(s): J18.9 - PNEUMONIA, UNSPECIFIED ORGANISM Current Visit: Yes Status: Acute Qualifiers: Pneumonia type: due to unspecified organism (5) Sepsis Code(s): A41.9 - SEPSIS, UNSPECIFIED ORGANISM Current Visit: Yes Status: Acute (6) Acute on chronic systolic (congestive) heart failure Code(s): I50.23 - ACUTE ON CHRONIC SYSTOLIC (CONGESTIVE) HEART FAILURE Current Visit: No Status: Acute (7) Type 2 diabetes mellitus Current Visit: No Status: Chronic Qualifiers: Diabetes mellitus custodial insulin use: without vermin exterminator use - Plan/Recommendations Plan: Met with patient helen at bedside. Discussed poor prognosis paired with "what w ould Mr Lee want". She relayed her father/patient brother is coming late Thursday to help "get affairs in order". Niece and family do not desire for further aggressive measures, including dialysis. They understand that Mr Lee may pass and are accepting of this. She and her father plan to come visit Thursday and discuss transition of care to comfort measures, consideration of compassionate extubation. Initially was overwhelmed with topic of Hospice, but accepting to revisit 2 and have available for transition to comfort measures. Please also refer to Palliative care notes in note section. Palliative care will follow up 06/01/2020 GOALS: No further aggressive interventions Niece and patient brother to come Thursday with consideration of transition to comfort measures after patient brother arrives from [place] [50] minutes spent on this encounter with >50% of the time in counseling and coordination of care. Thank you for this very appropriate consult.
[2020-05-31] MEDS: Dextrose 5% in Water 1,000 ML IV SCH (13:02)
--- NOTE | 2020-05-31 13:23 | EKG ---
Test Reason : STAT Blood Pressure : / mmHG Vent. Rate : 113 BPM Atrial Rate : 086 BPM P-R Int : 000 ms QRS Dur : 114 ms QT Int : 346 ms P-R-T Axes : 000 003 157 degrees QTc Int : 474 ms Atrial fibrillation with rapid ventricular response Incomplete left bundle branch block Abnormal ECG When compared with ECG of 24-MAY-2020 13:16, Atrial fibrillation has replaced Junctional rhythm Vent. rate has increased BY 54 BPM Incomplete left bundle branch block is now Present Confirmed by DR. Suresh ANGEL ([id number]) on 05/31/2020 1:23:40 PM Referred By: TIESHA Confirmed By:DR. Suresh ANGEL
[2020-05-31] MEDS: Atorvastatin Calcium 40 MG TAB PO SCH (21:24)
[2020-06-01] MEDS: Albuterol 200 PUFF (6.7GM INHALER) INH SCH ×4 (01:20→18:18)
[2020-06-01] MEDS: Metoclopramide HCl 10 MG/2 ML VIAL IVP SCH ×4 (02:16→20:00)
[2020-06-01 05:05] LABS: Anion Gap 21 mmol/L (10-20); BUN (Urea Nitrogen) 103 mg/dL (8.4-25.7); Calc. Creatinine Clearance 12 mL/min (70-130); Calcium 8.3 mg/dL (7.8-10.44); Carbon Dioxide 22 mmol/L (23-31); Chloride 98 mmol/L (98-107); Glucose 90 mg/dL (83-110); Potassium 4.8 mmol/L (3.5-5.1); Sodium 136 mmol/L (136-145)
[2020-06-01 05:16] LABS: #Eosinphils 0.3 thou/uL (0.0-0.7); #Lymphocytes 1.2 thou/uL (1.20-3.40); #Monocytes 1.7 thou/uL (0.11-0.59); #Neutrophils 13.3 thou/uL (1.40-6.50); %Lymphocytes 7.3 % (21.0-51.0); %Monocytes 10.1 % (0.0-10.0); %Neutrophils 80.6 % (42.0-75.0); Mean Corpuscular HGB CONC 32.6 g/dL (32.0-36.0); Mean Corpuscular Hemoglobin 27.7 pg (27.0-31.0); Mean Corpuscular Volume 85.1 fL (78.0-98.0); Mean Platelet Volume 8.7 fL (7.4-10.4); Platelet Count 251 thou/uL (130-400); RBC Distribution Width 14.9 % (11.5-14.5); Red Blood Cell (RBC) Count 3.25 mill/uL (4.70-6.10); White Blood Cell (WBC) Count 16.4 thou/uL (4.8-10.8)
[2020-06-01] MEDS: Cefepime 1 GM in Sodium Chloride 0.9% 100 ML IVPB SCH (09:02)
--- NOTE | 2020-06-01 09:38 | RAD ---
AP CHEST: Date: 06/01/2020 INDICATION: Pneumonia follow-up. COMPARISON: 05/31/2020. FINDINGS/IMPRESSION: ET tube and NG tube again noted. Hazy bilateral diffuse infiltrates. Probable small effusions and bib asilar atelectasis. No acute interval change. POS: AGW
--- NOTE | 2020-06-01 10:23 | PDOC.EVN ---
Event Note - Event Note Event Note: spoke with Lisa about pt's overall medical issues. she states that she will be there tomorrow with her uncle and will make the final decision.
[2020-06-01] MEDS: Aspirin Chewable 81 MG TAB PO SCH (10:38)
[2020-06-01] MEDS: Dextrose 5% in Water 1,000 ML IV SCH (10:38)
[2020-06-01] MEDS: Allopurinol 100 MG TAB PO SCH (10:38)
[2020-06-01] MEDS: GUAIFENESIN SF SOLN 200 MG/10 ML UDCUP PER TUBE SCH ×2 (10:38→20:43)
[2020-06-01] MEDS: Carvedilol 3.125 MG TAB PO SCH ×2 (10:38→15:16)
[2020-06-01] MEDS: Pantoprazole 40 MG GRANULES PACKET PER TUBE SCH (10:38)
--- NOTE | 2020-06-01 11:18 | PDOC.NEPPN ---
- Subjective Encounter Date: 06/01/20 Subjective: Seen and examined. Still on unresponsives though still on fentanyl. - Objective Vital Signs & Weight: Vital Signs (12 hours) Temp Pulse Resp Pulse Ox 06/01/20 10:35 83 06/01/20 10:00 14 06/01/20 09:00 98.2 F 06/01/20 08:00 18 96 06/01/20 07:05 83 06/01/20 06:00 16 06/01/20 04:00 98.7 F 16 06/01/20 02:12 81 06/01/20 02:00 16 06/01/20 00:00 98.6 F 05/31/20 23:42 14 Weight Admit Weight 195 lb 3.408 oz Weight 208 lb 15.971 oz Most Recent Monitor Data Heart Rate from ECG 83 NIBP 117/63 NIBP BP-Mean 81 Respiration from ECG 14 SpO2 92 I&O: 05/31/20 06/01/20 06/02/20 06:59 06:59 06:59 Intake Total 2902.1 1756 102 Output Total 70 1937 100 Balance 2832.1 -181 2 Result Diagrams: 06/01/20 04:00 06/01/20 04:00 Nephrology ROS - Medication Medications: Active Medications Generic Name Dose Route Start Last Admin Trade Name Freq PRN Reason Stop Dose Admin Albuterol Sulfate 2 puff 05/24/20 01:00 06/01/20 07:05 Albuterol 200 Puff (6.7gm Inhaler) INH 2 puff [id number] STEPH Administration Allopurinol 100 mg 05/24/20 09:00 06/01/20 10:38 Allopurinol 100 Mg Tab PO Not Given DAILY STEPH Aspirin 81 mg 05/25/20 09:00 06/01/20 10:38 Aspirin Chewable 81 Mg Tab PO Not Given DAILY STEPH Atorvastatin Calcium 40 mg 05/20/20 21:00 05/31/20 21:24 Atorvastatin Calcium 40 Mg Tab PO 40 mg HS STEPH Administration Carvedilol 3.125 mg 05/25/20 17:00 06/01/20 10:38 Carvedilol 3.125 Mg Tab PO Not Given BID- STEPH Guaifenesin 600 mg 05/26/20 21:00 06/01/20 10:38 Guaifenesin Sf Soln 200 Mg/10 Ml Udcup PER TUBE Not Given BID STEPH Doxycycline Hyclate 100 mg/ 100 mls @ 100 mls/hr 05/24/20 08:00 06/01/20 09:03 Sodium Chloride IVPB 100 mls 0800,2000 STEPH Administration Fentanyl 100 mls @ 0 mls/hr 05/24/20 13:30 05/31/20 12:07 Fentanyl Cadd IV 06/23/20 13:30 100 mls INF STEPH Administration Protocol Per Protocol Cefepime HCl 1 gm/ Sodium 100 mls @ 200 mls/hr 05/27/20 09:00 06/01/20 09:02 Chloride IVPB 100 mls DAILY STEPH Administration Norepinephrine Bitartrate 250 mls @ 0 mls/hr 05/27/20 10:45 05/30/20 15:05 Levophed IVPB 250 mls INF STEPH Administration Protocol Titrate Dextrose/Water 1,000 mls @ 50 mls/hr 05/30/20 17:50 06/01/20 10:38 D5w IV 1,000 mls .Q20H STEPH Administration Lorazepam 2 mg 05/24/20 13:30 05/24/20 17:36 Lorazepam 2 Mg/Ml Vial SLOW IVP 06/23/20 13:30 2 mg Q1H PRN Administration Breakthrough agitation Metoclopramide HCl 10 mg 05/26/20 07:30 06/01/20 09:02 Metoclopramide Hcl 10 Mg/2 Ml Vial IVP 10 mg Q6H STEPH Administration Pantoprazole Sodium 40 mg 05/31/20 09:00 06/01/20 10:38 Pantoprazole 40 Mg Granules Packet PER TUBE Not Given DAILY STEPH Propofol 1,000 mg 05/24/20 13:30 05/29/20 16:44 Propofol 1,000 Mg/100 Ml Vial IV 06/23/20 13:30 1,000 mg INF PRN Administration TO ACHIEVE GOAL RASS Protocol Sodium Chloride 10 ml 05/20/20 09:00 06/01/20 09:04 Flush - Normal Saline 10 Ml Syringe IVF 10 ml Q12HR STEPH Administration Sodium Chloride 10 ml 05/20/20 02:30 06/01/20 09:04 Flush - Normal Saline 10 Ml Syringe IVF 10 ml PRN PRN Administration Saline Flush - Exam General - other findings: unresponsive Eye: anicteric sclera ENT: normocephalic atraumatic ENT - other findings: ET tube in place Neck: symmetric Respiratory - other findings: ventilator transmitted sound Cardiovascular: RRR Gastrointestinal: soft, non-tender, non-distended Extremities - other findings: edema of the extremities Neurological - other findings: unresponsive. Still on fentanyl. opens eye and flinches with stimulation Nephrology Results - Labs Result Diagrams: 06/01/20 04:00 06/01/20 04:00 Lab results: WBC 16.4 thou/uL (4.8-10.8) H 06/01/20 04:00 Hgb 9.0 g/dL (14.0-18.0) L 06/01/20 04:00 Hct 27.6 % (42.0-52.0) L 06/01/20 04:00 MCV 85.1 fL (78.0-98.0) 06/01/20 04:00 Plt Count 251 thou/uL (130-400) 06/01/20 04:00 Neutrophils % 80.6 % (42.0-75.0) H 06/01/20 04:00 Band Neuts % (Manual) 1 % (5-11) L 05/20/20 05:33 ABG pH 7.35 (7.35-7.45) 05/29/20 06:30 ABG pCO2 46.9 mmHg (35.0-45.0) H 05/29/20 06:30 ABG pO2 51.2 mmHg (> 70.0) L* 05/29/20 06:30 VBG pH 7.42 (7.32-7.43) 05/24/20 06:30 VBG pCO2 30.9 mmHg (42.0-51.0) L 05/24/20 06:30 VBG pO2 65.3 mmHg (35.0-45.0) H 05/24/20 06:30 Sodium 136 mmol/L (136-145) 06/01/20 04:00 Potassium 4.8 mmol/L (3.5-5.1) 06/01/20 04:00 Chloride 98 mmol/L (98-107) 06/01/20 04:00 Carbon Dioxide 22 mmol/L (23-31) L 06/01/20 04:00 BUN 103 mg/dL (8.4-25.7) H 06/01/20 04:00 Creatinine 6.87 mg/dL (0.7-1.3) H 06/01/20 04:00 Glucose 90 mg/dL (83-110) 06/01/20 04:00 Lactic Acid 1.7 mmol/L (0.5-2.2) 05/20/20 01:52 Calcium 8.3 mg/dL (7.8-10.44) 06/01/20 04:00 Total Bilirubin 0.7 mg/dL (0.2-1.2) 05/27/20 03:40 AST 49 U/L (5-34) H 05/27/20 03:40 ALT 96 U/L (8-55) H 05/27/20 03:40 Alkaline Phosphatase 130 U/L (40-110) H 05/27/20 03:40 CK-MB (CK-2) 1.4 ng/mL (0-6.6) 05/19/20 20:40 Troponin I 0.245 ng/mL (< 0.028) H 05/20/20 02:37 C-Reactive Protein 12.35 mg/dL (= or < 0.5) H 05/24/20 04:48 B-Natriuretic Peptide 3710.8 pg/mL (0-100) H 05/23/20 16:22 Serum Total Protein 6.1 g/dL (5.8-8.1) 05/27/20 03:40 Albumin 3.1 g/dL (3.4-4.8) L 05/27/20 03:40 Lipase 4 U/L (8-78) L 05/24/20 04:48 Urine Ketones Negative mg/dL (Negative) 05/25/20 10:00 Urine Blood 1+ (Negative) A 05/25/20 10:00 Urine Nitrite Negative (Negative) 05/25/20 10:00 Ur Leukocyte Esterase 25 Arlene/uL (Negative) A 05/25/20 10:00 Urine RBC 11-20 HPF (0-3) A 05/25/20 10:00 Urine WBC 7-10 HPF (0-3) A 05/25/20 10:00 Ur Squamous Epith Cells None Seen HPF (0-3) 05/25/20 10:00 Urine Bacteria 1+ HPF (None Seen) A 05/25/20 10:00 Sodium 136 mmol/L (136-145) 06/01/20 04:00 Potassium 4.8 mmol/L (3.5-5.1) 06/01/20 04:00 Chloride 98 mmol/L (98-107) 06/01/20 04:00 Carbon Dioxide 22 mmol/L (23-31) L 06/01/20 04:00 Anion Gap 21 mmol/L (10-20) H 06/01/20 04:00 BUN 103 mg/dL (8.4-25.7) H 06/01/20 04:00 Creatinine 6.87 mg/dL (0.7-1.3) H 06/01/20 04:00 Glucose 90 mg/dL (83-110) 06/01/20 04:00 Calcium 8.3 mg/dL (7.8-10.44) 06/01/20 04:00 Phosphorus 4.7 mg/dL (2.3-4.7) 05/29/20 03:20 Magnesium 1.9 mg/dL (1.6-2.6) 05/29/20 03:20 Albumin 3.1 g/dL (3.4-4.8) L 05/27/20 03:40 Nephrology AP PN - Plan Acute renal failure: Due to hemodynamic factors related to hypotension, cardiac decompensation and diuretics/RAAS [place] with superimposed ATN. Creat continues to trend up. Creat is still trending up. Now Oliguric CKD 3. Presumed Cardiogenic shock. S/p Dobutamin and later Levophed. Off Levophed Hyperkalemia: Resolved. Metabolic acidosis: Resolved with alkali therapy Metabolic alkalosis: Due to Volume contraction. Resolved Hypoalbuminemia Hypernatremia Acute respiratory failure requiring intubation Cardiomyopathy with EF of 15% Valvular heart disease: Moderate aortic stenosis/regurgitation as well as moderate mitral regurgitation Pulmonary infiltrates. From CHF most likely. Had normal procalcitonin,remained afebrile and Covid remained negative. DISCUSSION/RECOMMENDATION/PLAN Patient has remained hemodynanically stable in the last [address] brain of 05/29/20 showed indistinct katz white matter differentiation which could be artefact or early edema from diffuse infacrt or anoxic injury. Patient also has acute renal failure with marked azotemia. Encephalopathy could be from several possibilities. Patient's initial problem was pulmonary congestion which most likely is due to CHF exacerbation With acute renal failure and fluid overload, patient can benefit from Hemodilayis with UF. I cannot in all honesty diagnose anoxic brain injury as the cause of his encephalopathy at this. I there recommend repeat CT brain since MRI cannot be obtained. Also neurology consult and trial of hemodialysis is recommended. With marked azotemia and likely uremia HD sooner than later is recommended Continue supportive care. Follow I/O, electrolytes and renal function Critically ill with guarded prognosis at best.
--- NOTE | 2020-06-01 11:47 | PRG ---
DATE OF SERVICE: 06/01/2020 SUBJECTIVE: Ashish Lee opens his eyes, but does not follow commands or make eye contact. He only opens his eyes to physical stimuli. OBJECTIVE: VITAL SIGNS: Heart rate is 80, respiratory rate is in the low 20s, FiO2 is at 50%. LUNGS: Remarkable for coarse equal breath sounds. HEART: Regular rhythm. ABDOMEN: Soft. EXTREMITIES: Without clubbing, cyanosis, or edema. LABORATORY DATA: White count 16.4, hemoglobin 9, and platelets 251. Creatinine 6.87 and BUN 103. Urine output is 130 mL over 24 hours. He had 1800 mL out of his gastric tube. IMPRESSION: 1. Respiratory failure after codes, associated with severe anoxic brain injury. 2. Aortic stenosis, mitral regurgitation, and a systolic cardiomyopathy. 3. Acute renal failure, not a candidate for dialysis given his heart disease and his anoxic brain injury. Withdrawal of care would be appropriate in my opinion. Critical care time 30 min. Job ID: [id number] MTDD
--- NOTE | 2020-06-01 15:58 | PDOC.HOSPP ---
- Subjective Encounter Date: 05/29/20 Encounter Time: 10:30 Subjective: pt intubated - Objective Vital Signs & Weight: Vital Signs (12 hours) Temp Pulse Resp Pulse Ox 06/01/20 14:16 83 06/01/20 14:00 16 06/01/20 13:00 98.0 F 06/01/20 12:00 14 06/01/20 10:35 83 06/01/20 10:00 14 06/01/20 09:00 98.2 F 06/01/20 08:00 18 96 06/01/20 07:05 83 06/01/20 06:00 16 06/01/20 04:00 98.7 F 16 Weight Admit Weight 195 lb 3.408 oz Weight 208 lb 15.971 oz Most Recent Monitor Data Heart Rate from ECG 83 NIBP 122/66 NIBP BP-Mean 84 Respiration from ECG 14 SpO2 93 I&O: 05/31/20 06/01/20 06/02/20 06:59 06:59 06:59 Intake Total 2902.1 1756 234 Output Total 70 1937 220 Balance 2832.1 -181 14 Result Diagrams: 06/01/20 04:00 06/01/20 04:00 Hospitalist ROS - Review of Systems Other: intubated - Medication Medications: Active Medications Generic Name Dose Route Start Last Admin Trade Name Freq PRN Reason Stop Dose Admin Albuterol Sulfate 2 puff 05/24/20 01:00 06/01/20 14:16 Albuterol 200 Puff (6.7gm Inhaler) INH 2 puff [id number] STEPH Administration Allopurinol 100 mg 05/24/20 09:00 06/01/20 10:38 Allopurinol 100 Mg Tab PO Not Given DAILY STEPH Aspirin 81 mg 05/25/20 09:00 06/01/20 10:38 Aspirin Chewable 81 Mg Tab PO Not Given DAILY STEPH Atorvastatin Calcium 40 mg 05/20/20 21:00 05/31/20 21:24 Atorvastatin Calcium 40 Mg Tab PO 40 mg HS STEPH Administration Carvedilol 3.125 mg 05/25/20 17:00 06/01/20 15:16 Carvedilol 3.125 Mg Tab PO Not Given BID-[facility] Guaifenesin 600 mg 05/26/20 21:00 06/01/20 10:38 Guaifenesin Sf Soln 200 Mg/10 Ml Udcup PER TUBE Not Given BID STEPH Doxycycline Hyclate 100 mg/ 100 mls @ 100 mls/hr 05/24/20 08:00 06/01/20 09:03 Sodium Chloride IVPB 100 mls 0800,2000 STEPH Administration Fentanyl 100 mls @ 0 mls/hr 05/24/20 13:30 05/31/20 12:07 Fentanyl Cadd IV 06/23/20 13:30 100 mls INF STEPH Administration Protocol Per Protocol Cefepime HCl 1 gm/ Sodium 100 mls @ 200 mls/hr 05/27/20 09:00 06/01/20 09:02 Chloride IVPB 100 mls DAILY STEPH Administration Norepinephrine Bitartrate 250 mls @ 0 mls/hr 05/27/20 10:45 05/30/20 15:05 Levophed IVPB 250 mls INF STEPH Administration Protocol Titrate Dextrose/Water 1,000 mls @ 50 mls/hr 05/30/20 17:50 06/01/20 10:38 D5w IV 1,000 mls .Q20H STEPH Administration Lorazepam 2 mg 05/24/20 13:30 05/24/20 17:36 Lorazepam 2 Mg/Ml Vial SLOW IVP 06/23/20 13:30 2 mg Q1H PRN Administration Breakthrough agitation Metoclopramide HCl 10 mg 05/26/20 07:30 06/01/20 13:25 Metoclopramide Hcl 10 Mg/2 Ml Vial IVP 10 mg Q6H STEPH Administration Pantoprazole Sodium 40 mg 05/31/20 09:00 06/01/20 10:38 Pantoprazole 40 Mg Granules Packet PER TUBE Not Given DAILY STEPH Propofol 1,000 mg 05/24/20 13:30 05/29/20 16:44 Propofol 1,000 Mg/100 Ml Vial IV 06/23/20 13:30 1,000 mg INF PRN Administration TO ACHIEVE GOAL RASS Protocol Sodium Chloride 10 ml 05/20/20 09:00 06/01/20 09:04 Flush - Normal Saline 10 Ml Syringe IVF 10 ml Q12HR STEPH Administration Sodium Chloride 10 ml 05/20/20 02:30 06/01/20 09:04 Flush - Normal Saline 10 Ml Syringe IVF 10 ml PRN PRN Administration Saline Flush Hospitalist Exam Vitals: Vital Signs (12 hours) Temp Pulse Resp Pulse Ox 06/01/20 14:16 83 06/01/20 14:00 16 06/01/20 13:00 98.0 F 06/01/20 12:00 14 06/01/20 10:35 83 06/01/20 10:00 14 06/01/20 09:00 98.2 F 06/01/20 08:00 18 96 06/01/20 07:05 83 06/01/20 06:00 16 06/01/20 04:00 98.7 F 16 Weight Admit Weight 195 lb 3.408 oz Weight 208 lb 15.971 oz Most Recent Monitor Data Heart Rate from ECG 83 NIBP 122/66 NIBP BP-Mean 84 Respiration from ECG 14 SpO2 93 Neck: supple Heart: no murmur Respiratory: no wheezes, no rales Gastrointestinal: soft, non-tender, normal bowel sounds Extremities: 2+ LE edema Hosp A/P - Plan MATT: Due to hemodynamic factors related to hypotension, cardiac decompensation and diuretics/RAAS [place]. Creat continues to trend up. Cardiorenal syndrome remained a concern. CKD 3. Presumed Cardiogenic shock. Hypotension improved with dobutamine Hyperkalemia: Resolved. Metabolic acidosis: Resolved with alkali therapy Metabolic alkalosis: Due to Volume contraction. Resolved with albumin. Hypoalbuminemia Hypernatremia Acute respiratory failure requiring intubation Cardiomyopathy with EF of 15% Pulmonary infiltrates. ? Pulmonaray edema from CHF vs infective process. Has remained afebrile and Covid remained negative. Normal procalcitonin makes pulmonary congestion from CHF exacerbation more likely PLAN Start 5dw for hypernatremia. tube feeding was held due to high residuals. Increase lasix to 40 q8h Add metolazone. Continue dobutamine Monitor vitals. Follow I/O, electrolytes and renal function 2/1 pt diuresing well on dobutamine drip. 2/2 pt off doubutamine. will monitor. will continue iv diuretics.
--- NOTE | 2020-06-01 16:00 | PDOC.HOSPP ---
- Subjective Encounter Date: 05/30/20 Encounter Time: 11:45 Subjective: intubated - Objective Vital Signs & Weight: Vital Signs (12 hours) Temp Pulse Resp Pulse Ox 06/01/20 14:16 83 06/01/20 14:00 16 06/01/20 13:00 98.0 F 06/01/20 12:00 14 06/01/20 10:35 83 06/01/20 10:00 14 06/01/20 09:00 98.2 F 06/01/20 08:00 18 96 06/01/20 07:05 83 06/01/20 06:00 16 06/01/20 04:00 98.7 F 16 Weight Admit Weight 195 lb 3.408 oz Weight 208 lb 15.971 oz Most Recent Monitor Data Heart Rate from ECG 83 NIBP 122/66 NIBP BP-Mean 84 Respiration from ECG 14 SpO2 93 I&O: 05/31/20 06/01/20 06/02/20 06:59 06:59 06:59 Intake Total 2902.1 1756 234 Output Total 70 1937 220 Balance 2832.1 -181 14 Result Diagrams: 06/01/20 04:00 06/01/20 04:00 Hospitalist ROS - Review of Systems Other: intubated - Medication Medications: Active Medications Generic Name Dose Route Start Last Admin Trade Name Freq PRN Reason Stop Dose Admin Albuterol Sulfate 2 puff 05/24/20 01:00 06/01/20 14:16 Albuterol 200 Puff (6.7gm Inhaler) INH 2 puff [id number] [id number] Administration Allopurinol 100 mg 05/24/20 09:00 06/01/20 10:38 Allopurinol 100 Mg Tab PO Not Given DAILY STEPH Aspirin 81 mg 05/25/20 09:00 06/01/20 10:38 Aspirin Chewable 81 Mg Tab PO Not Given DAILY STEPH Atorvastatin Calcium 40 mg 05/20/20 21:00 05/31/20 21:24 Atorvastatin Calcium 40 Mg Tab PO 40 mg HS STEPH Administration Carvedilol 3.125 mg 05/25/20 17:00 06/01/20 15:16 Carvedilol 3.125 Mg Tab PO Not Given BID- STEPH Guaifenesin 600 mg 05/26/20 21:00 06/01/20 10:38 Guaifenesin Sf Soln 200 Mg/10 Ml Udcup PER TUBE Not Given BID STPEH Doxycycline Hyclate 100 mg/ 100 mls @ 100 mls/hr 05/24/20 08:00 06/01/20 09:03 Sodium Chloride IVPB 100 mls 0800,2000 STEPH Administration Fentanyl 100 mls @ 0 mls/hr 05/24/20 13:30 05/31/20 12:07 Fentanyl Cadd IV 06/23/20 13:30 100 mls INF STEPH Administration Protocol Per Protocol Cefepime HCl 1 gm/ Sodium 100 mls @ 200 mls/hr 05/27/20 09:00 06/01/20 09:02 Chloride IVPB 100 mls DAILY STEPH Administration Norepinephrine Bitartrate 250 mls @ 0 mls/hr 05/27/20 10:45 05/30/20 15:05 Levophed IVPB 250 mls INF STEPH Administration Protocol Titrate Dextrose/Water 1,000 mls @ 50 mls/hr 05/30/20 17:50 06/01/20 10:38 D5w IV 1,000 mls .Q20H STEPH Administration Lorazepam 2 mg 05/24/20 13:30 05/24/20 17:36 Lorazepam 2 Mg/Ml Vial SLOW IVP 06/23/20 13:30 2 mg Q1H PRN Administration Breakthrough agitation Metoclopramide HCl 10 mg 05/26/20 07:30 06/01/20 13:25 Metoclopramide Hcl 10 Mg/2 Ml Vial IVP 10 mg Q6H STEPH Administration Pantoprazole Sodium 40 mg 05/31/20 09:00 06/01/20 10:38 Pantoprazole 40 Mg Granules Packet PER TUBE Not Given DAILY STEPH Propofol 1,000 mg 05/24/20 13:30 05/29/20 16:44 Propofol 1,000 Mg/100 Ml Vial IV 06/23/20 13:30 1,000 mg INF PRN Administration TO ACHIEVE GOAL RASS Protocol Sodium Chloride 10 ml 05/20/20 09:00 06/01/20 09:04 Flush - Normal Saline 10 Ml Syringe IVF 10 ml Q12HR STEPH Administration Sodium Chloride 10 ml 05/20/20 02:30 06/01/20 09:04 Flush - Normal Saline 10 Ml Syringe IVF 10 ml PRN PRN Administration Saline Flush Hospitalist Exam Vitals: Vital Signs (12 hours) Temp Pulse Resp Pulse Ox 06/01/20 14:16 83 06/01/20 14:00 16 06/01/20 13:00 98.0 F 06/01/20 12:00 14 06/01/20 10:35 83 06/01/20 10:00 14 06/01/20 09:00 98.2 F 06/01/20 08:00 18 96 06/01/20 07:05 83 06/01/20 06:00 16 06/01/20 04:00 98.7 F 16 Weight Admit Weight 195 lb 3.408 oz Weight 208 lb 15.971 oz Most Recent Monitor Data Heart Rate from ECG 83 NIBP 122/66 NIBP BP-Mean 84 Respiration from ECG 14 SpO2 93 Neck: supple Heart: no murmur Respiratory: no wheezes, no rales Gastrointestinal: soft, non-tender, normal bowel sounds Extremities: 2+ LE edema Hosp A/P - Plan MATT: Due to hemodynamic factors related to hypotension, cardiac decompensation and diuretics/RAAS [place]. Creat continues to trend up. Cardiorenal syndrome remained a concern. CKD 3. Presumed Cardiogenic shock. Hypotension improved with dobutamine Hyperkalemia: Resolved. Metabolic acidosis: Resolved with alkali therapy Metabolic alkalosis: Due to Volume contraction. Resolved with albumin. Hypoalbuminemia Hypernatremia Acute respiratory failure requiring intubation Cardiomyopathy with EF of 15% Pulmonary infiltrates. ? Pulmonaray edema from CHF vs infective process. Has remained afebrile and Covid remained negative. Normal procalcitonin makes pulmonary congestion from CHF exacerbation more likely PLAN Start 5dw for hypernatremia. tube feeding was held due to high residuals. Increase lasix to 40 q8h Add metolazone. Continue dobutamine Monitor vitals. Follow I/O, electrolytes and renal function 2/1 pt diuresing well on dobutamine drip. 2/2 pt off doubutamine. will monitor. will continue iv diuretics. 2/3 pt having high residuals, will get abd xray. pt on reglan.
--- NOTE | 2020-06-01 16:06 | PDOC.HOSPP ---
- Subjective Encounter Date: 05/31/20 Encounter Time: 12:30 Subjective: pt intubated - Objective Vital Signs & Weight: Vital Signs (12 hours) Temp Pulse Resp Pulse Ox 06/01/20 14:16 83 06/01/20 14:00 16 06/01/20 13:00 98.0 F 06/01/20 12:00 14 06/01/20 10:35 83 06/01/20 10:00 14 06/01/20 09:00 98.2 F 06/01/20 08:00 18 96 06/01/20 07:05 83 06/01/20 06:00 16 Weight Admit Weight 195 lb 3.408 oz Weight 208 lb 15.971 oz Most Recent Monitor Data Heart Rate from ECG 83 NIBP 122/66 NIBP BP-Mean 84 Respiration from ECG 14 SpO2 93 I&O: 05/31/20 06/01/20 06/02/20 06:59 06:59 06:59 Intake Total 2902.1 1756 234 Output Total 70 1937 220 Balance 2832.1 -181 14 Result Diagrams: 06/01/20 04:00 06/01/20 04:00 Hospitalist ROS - Review of Systems Other: intubated - Medication Medications: Active Medications Generic Name Dose Route Start Last Admin Trade Name Freq PRN Reason Stop Dose Admin Albuterol Sulfate 2 puff 05/24/20 01:00 06/01/20 14:16 Albuterol 200 Puff (6.7gm Inhaler) INH 2 puff [id number] STEPH Administration Allopurinol 100 mg 05/24/20 09:00 06/01/20 10:38 Allopurinol 100 Mg Tab PO Not Given DAILY STEPH Aspirin 81 mg 05/25/20 09:00 06/01/20 10:38 Aspirin Chewable 81 Mg Tab PO Not Given DAILY STEPH Atorvastatin Calcium 40 mg 05/20/20 21:00 05/31/20 21:24 Atorvastatin Calcium 40 Mg Tab PO 40 mg HS STEPH Administration Carvedilol 3.125 mg 05/25/20 17:00 06/01/20 15:16 Carvedilol 3.125 Mg Tab PO Not Given BID- STEPH Guaifenesin 600 mg 05/26/20 21:00 06/01/20 10:38 Guaifenesin Sf Soln 200 Mg/10 Ml Udcup PER TUBE Not Given BID STEPH Doxycycline Hyclate 100 mg/ 100 mls @ 100 mls/hr 05/24/20 08:00 06/01/20 09:03 Sodium Chloride IVPB 100 mls 0800,2000 STEPH Administration Fentanyl 100 mls @ 0 mls/hr 05/24/20 13:30 05/31/20 12:07 Fentanyl Cadd IV 06/23/20 13:30 100 mls INF STEPH Administration Protocol Per Protocol Cefepime HCl 1 gm/ Sodium 100 mls @ 200 mls/hr 05/27/20 09:00 06/01/20 09:02 Chloride IVPB 100 mls DAILY STEPH Administration Norepinephrine Bitartrate 250 mls @ 0 mls/hr 05/27/20 10:45 05/30/20 15:05 Levophed IVPB 250 mls INF STEPH Administration Protocol Titrate Dextrose/Water 1,000 mls @ 50 mls/hr 05/30/20 17:50 06/01/20 10:38 D5w IV 1,000 mls .Q20H STEPH Administration Lorazepam 2 mg 05/24/20 13:30 05/24/20 17:36 Lorazepam 2 Mg/Ml Vial SLOW IVP 06/23/20 13:30 2 mg Q1H PRN Administration Breakthrough agitation Metoclopramide HCl 10 mg 05/26/20 07:30 06/01/20 13:25 Metoclopramide Hcl 10 Mg/2 Ml Vial IVP 10 mg Q6H STEPH Administration Pantoprazole Sodium 40 mg 05/31/20 09:00 06/01/20 10:38 Pantoprazole 40 Mg Granules Packet PER TUBE Not Given DAILY STEPH Propofol 1,000 mg 05/24/20 13:30 05/29/20 16:44 Propofol 1,000 Mg/100 Ml Vial IV 06/23/20 13:30 1,000 mg INF PRN Administration TO ACHIEVE GOAL RASS Protocol Sodium Chloride 10 ml 05/20/20 09:00 06/01/20 09:04 Flush - Normal Saline 10 Ml Syringe IVF 10 ml Q12HR STEPH Administration Sodium Chloride 10 ml 05/20/20 02:30 06/01/20 09:04 Flush - Normal Saline 10 Ml Syringe IVF 10 ml PRN PRN Administration Saline Flush Hospitalist Exam Vitals: Vital Signs (12 hours) Temp Pulse Resp Pulse Ox 06/01/20 14:16 83 06/01/20 14:00 16 06/01/20 13:00 98.0 F 06/01/20 12:00 14 06/01/20 10:35 83 06/01/20 10:00 14 06/01/20 09:00 98.2 F 06/01/20 08:00 18 96 06/01/20 07:05 83 06/01/20 06:00 16 Weight Admit Weight 195 lb 3.408 oz Weight 208 lb 15.971 oz Most Recent Monitor Data Heart Rate from ECG 83 NIBP 122/66 NIBP BP-Mean 84 Respiration from ECG 14 SpO2 93 Neck: supple Heart: RRR Respiratory: CTAB, no wheezes, no rales Hosp A/P - Plan MATT: Due to hemodynamic factors related to hypotension, cardiac decompensation and diuretics/RAAS [place]. Creat continues to trend up. Cardiorenal syndrome remained a concern. CKD 3. Presumed Cardiogenic shock. Hypotension improved with dobutamine Hyperkalemia: Resolved. Metabolic acidosis: Resolved with alkali therapy Metabolic alkalosis: Due to Volume contraction. Resolved with albumin. Hypoalbuminemia Hypernatremia Acute respiratory failure requiring intubation Cardiomyopathy with EF of 15% Pulmonary infiltrates. ? Pulmonaray edema from CHF vs infective process. Has remained afebrile and Covid remained negative. Normal procalcitonin makes pulmonary congestion from CHF exacerbation more likely PLAN Start 5dw for hypernatremia. tube feeding was held due to high residuals. Increase lasix to 40 q8h Add metolazone. Continue dobutamine Monitor vitals. Follow I/O, electrolytes and renal function 2/1 pt diuresing well on dobutamine drip. 2/2 pt off doubutamine. will monitor. will continue iv diuretics. 2/3 pt having high residuals, will get abd xray. pt on reglan. 2/4 Family meeting unable to attend will call JANES Gonzalez. pt's residual are still high. he has not had a bm. will add prn meds. will stop all sedation today. will get MRi brain. ct brain non conclusive. will get neurology to see pt. Lisa called and updated.
[2020-06-01] MEDS ORDERED: Vecuronium 10 MG VIAL ONE (16:37)
[2020-06-01] MEDS ORDERED: Vecuronium 10 MG VIAL IV SCH (16:40)
--- NOTE | 2020-06-01 17:29 | PRG ---
DATE OF SERVICE: 06/01/2020 An order was placed to discontinue sedation until the morning. His sedation was held. Mr. Lee cannot be ventilated, off sedation unfortunately. He still only opens his eyes, stares at the ceiling, does not respond to pain other than to open his eyes, does not make eye contact and does not follow commands. I have chemically paralyzed him and turned up his ventilatory rate. I have EEG here, doing an EEG off sedation while he is paralyzed to see what we have about background rhythm. There may be a misunderstanding about his clinical condition when he arrived in the ICU, but he was pulseless when he got to the ICU after being transferred from the floor, after being intubated and being noted to be bradycardic. He required multiple amps of epinephrine to get a pulse on him when he arrived here. It was anticipated that he would pass away within that first hour, but he stabilized. I truly believe he has a hypoperfusion injury and at this point, he is unlikely to recover functionally. His other multiple comorbidities make his mortality extremely high. Critical care time 30 min. Job ID: [id number] MTDD
--- NOTE | 2020-06-01 18:30 | PDOC.EEG ---
Neurology EEG Report - Report Report: This EEG was performed using 24 channel [employer] video EEG machine with 24 disc electrodes. Digital analysis of the EEG was done for spike and seizure detection which revealed no abnormalities. Background: The posterior background rhythm is not observed. Hyperventilation: Not performed. Photic Stimulation: No significant response. Sleep: No stage change is observed. Spells: None EEG Diagnosis: Low amplitude EEG with generalized irregular delta activity with rare theta seen throughout the recording. Absence of posterior background rhythm. Clinical Interpretation: This EEG is consistent with severe generalized nonspecific cerebral dysfunction.
[2020-06-01 19:36] VITALS: BP 129/62
[2020-06-01] MEDS: Atorvastatin Calcium 40 MG TAB PO SCH (20:43)
[2020-06-02] MEDS: Albuterol 200 PUFF (6.7GM INHALER) INH SCH ×4 (02:18→17:56)
[2020-06-02] MEDS: Lorazepam 2 MG/ML VIAL SLOW IVP PRN (03:32)
[2020-06-02] MEDS: Metoclopramide HCl 10 MG/2 ML VIAL IVP SCH ×3 (03:48→14:44)
[2020-06-02] MEDS ORDERED: Fentanyl CADD 100 ML ONE (03:48)
[2020-06-02] MEDS: Fentanyl CADD 100 ML IV SCH (03:49)
[2020-06-02 04:16] LABS: #Basophils 0.1 thou/uL (0.0-0.2); #Eosinphils 0.2 thou/uL (0.0-0.7); #Lymphocytes 1.2 thou/uL (1.20-3.40); #Monocytes 1.4 thou/uL (0.11-0.59); #Neutrophils 11.1 thou/uL (1.40-6.50); %Basophils 0.4 % (0.0-1.0); %Eosinophils 1.5 % (0.0-10.0); %Lymphocytes 8.7 % (21.0-51.0); %Monocytes 10.3 % (0.0-10.0); %Neutrophils 79.1 % (42.0-75.0); Hemoglobin 9.4 g/dL (14.0-18.0); Mean Corpuscular HGB CONC 32.7 g/dL (32.0-36.0); Mean Corpuscular Hemoglobin 27.3 pg (27.0-31.0); Mean Corpuscular Volume 83.7 fL (78.0-98.0); Mean Platelet Volume 8.5 fL (7.4-10.4); Platelet Count 256 thou/uL (130-400); RBC Distribution Width 14.9 % (11.5-14.5); Red Blood Cell (RBC) Count 3.43 mill/uL (4.70-6.10)
[2020-06-02 04:30] LABS: Anion Gap 23 mmol/L (10-20); BUN (Urea Nitrogen) 124 mg/dL (8.4-25.7); Calc. Creatinine Clearance 11 mL/min (70-130); Calcium 8.8 mg/dL (7.8-10.44); Carbon Dioxide 21 mmol/L (23-31); Chloride 95 mmol/L (98-107); Glucose 99 mg/dL (83-110); Potassium 4.8 mmol/L (3.5-5.1); Sodium 134 mmol/L (136-145)
[2020-06-02 05:34] VITALS: BMI 32.1
[2020-06-02 08:06] VITALS: TEMP 98.9
[2020-06-02] MEDS: Cefepime 1 GM in Sodium Chloride 0.9% 100 ML IVPB SCH (08:31)
[2020-06-02] MEDS: GUAIFENESIN SF SOLN 200 MG/10 ML UDCUP PER TUBE SCH (08:32)
[2020-06-02] MEDS: Aspirin Chewable 81 MG TAB PO SCH ×2 (08:32→08:38)
[2020-06-02] MEDS: Pantoprazole 40 MG GRANULES PACKET PER TUBE SCH (08:32)
[2020-06-02] MEDS: Carvedilol 3.125 MG TAB PO SCH ×3 (08:32→16:32)
[2020-06-02] MEDS: Allopurinol 100 MG TAB PO SCH (08:32)
--- NOTE | 2020-06-02 09:05 | RAD ---
CHEST 1 VIEW: Date: 06/02/2020 INDICATION: 75-year-old male with pneumonia. COMPARISON: Prior exam dated 06/01/2020. IMPRESSION: Patient remains intubated with gastric catheter placement. Bilateral pneumonia is stable. Small pleur al effusions persist. No pneumothorax evident. POS: BH
--- NOTE | 2020-06-02 11:00 | PDOC.NEPPN ---
- Subjective Encounter Date: 06/02/20 Subjective: Seen and examined. Still intubated and mechanically ventilated. - Objective Vital Signs & Weight: Vital Signs (12 hours) Temp Pulse Resp Pulse Ox 06/02/20 10:00 20 06/02/20 08:00 98.9 F 06/02/20 07:47 20 94 L 06/02/20 06:29 110 H 06/02/20 06:00 20 06/02/20 04:00 98.5 F 20 06/02/20 02:16 79 06/02/20 02:00 20 06/02/20 00:00 98.8 F 06/01/20 23:44 20 Weight Admit Weight 195 lb 3.408 oz Weight 200 lb 2.876 oz Most Recent Monitor Data Heart Rate from ECG 115 NIBP 83/52 NIBP BP-Mean 62 Respiration from ECG 20 SpO2 100 I&O: 06/01/20 06/02/20 06/03/20 06:59 06:59 06:59 Intake Total 1756 1724.8 202 Output Total 1937 1105 45 Balance -181 619.8 157 Result Diagrams: 06/02/20 03:25 06/02/20 03:25 Nephrology ROS - Medication Medications: Active Medications Generic Name Dose Route Start Last Admin Trade Name Freq PRN Reason Stop Dose Admin Albuterol Sulfate 2 puff 05/24/20 01:00 06/02/20 06:29 Albuterol 200 Puff (6.7gm Inhaler) INH 2 puff [id number] STEPH Administration Allopurinol 100 mg 05/24/20 09:00 06/02/20 08:32 Allopurinol 100 Mg Tab PO 100 mg DAILY STEPH Administration Aspirin 81 mg 05/25/20 09:00 06/02/20 08:38 Aspirin Chewable 81 Mg Tab PO Not Given DAILY STEPH Atorvastatin Calcium 40 mg 05/20/20 21:00 06/01/20 20:43 Atorvastatin Calcium 40 Mg Tab PO 40 mg HS STEPH Administration Carvedilol 3.125 mg 05/25/20 17:00 06/02/20 08:37 Carvedilol 3.125 Mg Tab PO Not Given BID-WM STEPH Guaifenesin 600 mg 05/26/20 21:00 06/02/20 08:32 Guaifenesin Sf Soln 200 Mg/10 Ml Udcup PER TUBE 600 mg BID STEPH Administration Doxycycline Hyclate 100 mg/ 100 mls @ 100 mls/hr 05/24/20 08:00 06/02/20 08:31 Sodium Chloride IVPB 100 mls 0800,2000 STEPH Administration Fentanyl 100 mls @ 0 mls/hr 05/24/20 13:30 06/02/20 03:49 Fentanyl Cadd IV 06/23/20 13:30 100 mls INF STEPH Administration Protocol Per Protocol Cefepime HCl 1 gm/ Sodium 100 mls @ 200 mls/hr 05/27/20 09:00 06/02/20 08:31 Chloride IVPB 100 mls DAILY STEPH Administration Norepinephrine Bitartrate 250 mls @ 0 mls/hr 05/27/20 10:45 05/30/20 15:05 Levophed IVPB 250 mls INF STEPH Administration Protocol Titrate Dextrose/Water 1,000 mls @ 50 mls/hr 05/30/20 17:50 06/01/20 10:38 D5w IV 1,000 mls .Q20H STEPH Administration Lorazepam 2 mg 05/24/20 13:30 06/02/20 03:32 Lorazepam 2 Mg/Ml Vial SLOW IVP 06/23/20 13:30 2 mg Q1H PRN Administration Breakthrough agitation Metoclopramide HCl 10 mg 05/26/20 07:30 06/02/20 08:36 Metoclopramide Hcl 10 Mg/2 Ml Vial IVP 10 mg Q6H STEPH Administration Pantoprazole Sodium 40 mg 05/31/20 09:00 06/02/20 08:32 Pantoprazole 40 Mg Granules Packet PER TUBE 40 mg DAILY STEPH Administration Propofol 1,000 mg 05/24/20 13:30 05/29/20 16:44 Propofol 1,000 Mg/100 Ml Vial IV 06/23/20 13:30 1,000 mg INF PRN Administration TO ACHIEVE GOAL RASS Protocol Sodium Chloride 10 ml 05/20/20 09:00 06/02/20 08:32 Flush - Normal Saline 10 Ml Syringe IVF 10 ml Q12HR STEPH Administration Sodium Chloride 10 ml 05/20/20 02:30 06/01/20 09:04 Flush - Normal Saline 10 Ml Syringe IVF 10 ml PRN PRN Administration Saline Flush - Exam General - other findings: unresponsive. ENT: normocephalic atraumatic ENT - other findings: ET tube in place Neck: symmetric Respiratory - other findings: ventilator transmitted sounf noted Cardiovascular: RRR Gastrointestinal: diminished bowl sounds Extremities - other findings: bilateral leg fullness. mild to moderate bilateral UE edema Neurological - other findings: unresponsive. On fentanyl infusion. Nephrology Results - Labs Result Diagrams: 06/02/20 03:25 06/02/20 03:25 Lab results: WBC 14.0 thou/uL (4.8-10.8) H 06/02/20 03:25 Hgb 9.4 g/dL (14.0-18.0) L 06/02/20 03:25 Hct 28.7 % (42.0-52.0) L 06/02/20 03:25 MCV 83.7 fL (78.0-98.0) 06/02/20 03:25 Plt Count 256 thou/uL (130-400) 06/02/20 03:25 Neutrophils % 79.1 % (42.0-75.0) H 06/02/20 03:25 Band Neuts % (Manual) 1 % (5-11) L 05/20/20 05:33 ABG pH 7.35 (7.35-7.45) 05/29/20 06:30 ABG pCO2 46.9 mmHg (35.0-45.0) H 05/29/20 06:30 ABG pO2 51.2 mmHg (> 70.0) L* 05/29/20 06:30 VBG pH 7.42 (7.32-7.43) 05/24/20 06:30 VBG pCO2 30.9 mmHg (42.0-51.0) L 05/24/20 06:30 VBG pO2 65.3 mmHg (35.0-45.0) H 05/24/20 06:30 Sodium 134 mmol/L (136-145) L 06/02/20 03:25 Potassium 4.8 mmol/L (3.5-5.1) 06/02/20 03:25 Chloride 95 mmol/L (98-107) L 06/02/20 03:25 Carbon Dioxide 21 mmol/L (23-31) L 06/02/20 03:25 BUN 124 mg/dL (8.4-25.7) H 06/02/20 03:25 Creatinine 7.91 mg/dL (0.7-1.3) H 06/02/20 03:25 Glucose 99 mg/dL (83-110) 06/02/20 03:25 Lactic Acid 1.7 mmol/L (0.5-2.2) 05/20/20 01:52 Calcium 8.8 mg/dL (7.8-10.44) 06/02/20 03:25 Total Bilirubin 0.7 mg/dL (0.2-1.2) 05/27/20 03:40 AST 49 U/L (5-34) H 05/27/20 03:40 ALT 96 U/L (8-55) H 05/27/20 03:40 Alkaline Phosphatase 130 U/L (40-110) H 05/27/20 03:40 CK-MB (CK-2) 1.4 ng/mL (0-6.6) 05/19/20 20:40 Troponin I 0.245 ng/mL (< 0.028) H 05/20/20 02:37 C-Reactive Protein 12.35 mg/dL (= or < 0.5) H 05/24/20 04:48 B-Natriuretic Peptide 3710.8 pg/mL (0-100) H 05/23/20 16:22 Serum Total Protein 6.1 g/dL (5.8-8.1) 05/27/20 03:40 Albumin 3.1 g/dL (3.4-4.8) L 05/27/20 03:40 Lipase 4 U/L (8-78) L 05/24/20 04:48 Urine Ketones Negative mg/dL (Negative) 05/25/20 10:00 Urine Blood 1+ (Negative) A 05/25/20 10:00 Urine Nitrite Negative (Negative) 05/25/20 10:00 Ur Leukocyte Esterase 25 Arlene/uL (Negative) A 05/25/20 10:00 Urine RBC 11-20 HPF (0-3) A 05/25/20 10:00 Urine WBC 7-10 HPF (0-3) A 05/25/20 10:00 Ur Squamous Epith Cells None Seen HPF (0-3) 05/25/20 10:00 Urine Bacteria 1+ HPF (None Seen) A 05/25/20 10:00 Sodium 134 mmol/L (136-145) L 06/02/20 03:25 Potassium 4.8 mmol/L (3.5-5.1) 06/02/20 03:25 Chloride 95 mmol/L (98-107) L 06/02/20 03:25 Carbon Dioxide 21 mmol/L (23-31) L 06/02/20 03:25 Anion Gap 23 mmol/L (10-20) H 06/02/20 03:25 BUN 124 mg/dL (8.4-25.7) H 06/02/20 03:25 Creatinine 7.91 mg/dL (0.7-1.3) H 06/02/20 03:25 Glucose 99 mg/dL (83-110) 06/02/20 03:25 Calcium 8.8 mg/dL (7.8-10.44) 06/02/20 03:25 Phosphorus 4.7 mg/dL (2.3-4.7) 05/29/20 03:20 Magnesium 1.9 mg/dL (1.6-2.6) 05/29/20 03:20 Albumin 3.1 g/dL (3.4-4.8) L 05/27/20 03:40 Nephrology AP PN - Plan Acute renal failure: Due to hemodynamic factors related to hypotension, cardiac decompensation and diuretics/RAAS [place] with superimposed ATN. Creat and BUN continues to trend up. Creat is still trending up. Now Oliguric CKD 3. Presumed Cardiogenic shock. S/p Dobutamin and later Levophed. Off Levophed Hyperkalemia: Resolved. Metabolic acidosis: Metabolic alkalosis: Due to Volume contraction. Resolved Hypoalbuminemia Hypernatremia. Resolved. Acute respiratory failure requiring intubation Cardiomyopathy with EF of 15% Valvular heart disease: Moderate aortic stenosis/regurgitation as well as m oderate mitral regurgitation Pulmonary infiltrates. From CHF most likely. Had normal procalcitonin,remained afebrile and Covid remained negative. Acute encephalopathy. EEG showed severe diffuse cerebral dysnfuction. Patient has multiple possible etiology including Uremic encephalopathy, Sedatives as well as ischemic/anoxic brain injury. RECOMMENDATION/PLAN Trial of dialysis will be prudent if relatives wants continuation of aggressive therapy. Await Neurology input. Relatives will be around to make decision of goal of care later today. Continue supportive care. Follow I/O, electrolytes and renal function Critically ill with guarded prognosis at best.
--- NOTE | 2020-06-02 14:44 | PRG ---
DATE OF SERVICE: 06/02/2020 SUBJECTIVE: Ashish Lee remains unresponsive. With sternal rub, he opens his eyes, stares and ceiling with an upward gaze, but does not make eye contact. This is same as he has been for several days. OBJECTIVE: VITAL SIGNS: Blood pressure 105/89, heart rate is 102, respiratory rate 20 per mechanical ventilation. LUNGS: Remarkably equal breath sounds. HEART: Regular rhythm. ABDOMEN: Soft. LABORATORY DATA: Intake and outputs, positive 619. White count 14, hemoglobin 9.4, platelets 256. Sodium 134, potassium 4.8, chloride 95, bicarb 21, BUN 124, creatinine . IMPRESSION: 1. Respiratory failure after multiple codes in one day. 2. Severe cardiomyopathy. 3. Valvular heart disease. 4. Severe anoxic brain injury. 5. Progressive renal failure. 6. Schizophrenia. 7. Do not resuscitate status. I was told that family may arrive today to withdrawal support. I feel that this would be appropriate. Critical care time 30 min. Job ID: [id number] MTDD
--- NOTE | 2020-06-02 15:27 | CON ---
NEUROLOGY CONSULTATION DATE OF CONSULTATION: 06/02/2020 REASON FOR CONSULTATION: Altered mental status/anoxic brain injury. HISTORY OF PRESENT ILLNESS: Mr. Ashish Lee is a 75-year-old male with history significant for atrial fibrillation, dementia, nonischemic cardiomyopathy with ejection fraction of 10% to 15%, diabetes, hyperlipidemia, and chronic kidney disease, presented to the emergency department as a transfer from [place], because of multifocal pneumonia and altered mental status. The patient is unable to provide the history. No family at bedside, so history is obtained from review of the medical records. The patient is currently intubated and sedated and there is a question about prognosis since there is no improvement in the last several days. There is no improvement and he continues to have persistent confusion. As part of workup, head CT was done, which shows signs of anoxic brain injury. An EEG showed severe generalized nonspecific cerebral dysfunction. REVIEW OF SYSTEMS: Unable to obtain secondary to patient's mental status. PAST MEDICAL HISTORY: Schizophrenia, gout, diabetes. PAST SURGICAL HISTORY: Appendectomy. FAMILY HISTORY: No significant family history. SOCIAL HISTORY: No documented history of alcohol or illegal drug abuse. Allergies: No known drug allergies Vital Signs & Weight: Vital Signs (12 hours) Temp Pulse Resp Pulse Ox 06/02/20 10:00 20 06/02/20 08:00 98.9 F 06/02/20 07:47 20 94 L 06/02/20 06:29 110 H 06/02/20 06:00 20 06/02/20 04:00 98.5 F 20 06/02/20 02:16 79 06/02/20 02:00 20 06/02/20 00:00 98.8 F 06/01/20 23:44 20 Weight Admit Weight 195 lb 3.408 oz Weight 200 lb 2.876 oz Most Recent Monitor Data Heart Rate from ECG 115 NIBP 83/52 NIBP BP-Mean 62 Respiration from ECG 20 SpO2 100 I&O: 06/01/20 06/02/20 06/03/20 06:59 06:59 06:59 Intake Total 1756 1724.8 202 Output Total 1937 1105 45 Balance -181 619.8 157 Active Medications Generic Name Dose Route Start Last Admin Trade Name Freq PRN Reason Stop Dose Admin Albuterol Sulfate 2 puff 05/24/20 01:00 06/02/20 06:29 Albuterol 200 Puff (6.7gm Inhaler) INH 2 puff [id number] STEPH Administration Allopurinol 100 mg 05/24/20 09:00 06/02/20 08:32 Allopurinol 100 Mg Tab PO 100 mg DAILY STEPH Administration Aspirin 81 mg 05/25/20 09:00 06/02/20 08:38 Aspirin Chewable 81 Mg Tab PO Not Given DAILY STEPH Atorvastatin Calcium 40 mg 05/20/20 21:00 06/01/20 20:43 Atorvastatin Calcium 40 Mg Tab PO 40 mg HS STEPH Administration Carvedilol 3.125 mg 05/25/20 17:00 06/02/20 08:37 Carvedilol 3.125 Mg Tab PO Not Given BID-WM STEPH Guaifenesin 600 mg 05/26/20 21:00 06/02/20 08:32 Guaifenesin Sf Soln 200 Mg/10 Ml Udcup PER TUBE 600 mg BID STEPH Administration Doxycycline Hyclate 100 mg/ 100 mls @ 100 mls/hr 05/24/20 08:00 06/02/20 08:31 Sodium Chloride IVPB 100 mls 0800,1999 STEPH Administration Fentanyl 100 mls @ 0 mls/hr 05/24/20 13:30 06/02/20 03:49 Fentanyl Cadd IV 06/23/20 13:30 100 mls INF STEPH Administration Protocol Per Protocol Cefepime HCl 1 gm/ Sodium 100 mls @ 200 mls/hr 05/27/20 09:00 06/02/20 08:31 Chloride IVPB 100 mls DAILY STEPH Administration Norepinephrine Bitartrate 250 mls @ 0 mls/hr 05/27/20 10:45 05/30/20 15:05 Levophed IVPB 250 mls INF STEPH Administration Protocol Titrate Dextrose/Water 1,000 mls @ 50 mls/hr 05/30/20 17:50 06/01/20 10:38 D5w IV 1,000 mls .Q20H STEPH Administration Lorazepam 2 mg 05/24/20 13:30 06/02/20 03:32 Lorazepam 2 Mg/Ml Vial SLOW IVP 06/23/20 13:30 2 mg Q1H PRN Administration Breakthrough agitation Metoclopramide HCl 10 mg 05/26/20 07:30 06/02/20 08:36 Metoclopramide Hcl 10 Mg/2 Ml Vial IVP 10 mg Q6H STEPH Administration Pantoprazole Sodium 40 mg 05/31/20 09:00 06/02/20 08:32 Pantoprazole 40 Mg Granules Packet PER TUBE 40 mg DAILY STEPH Administration Propofol 1,000 mg 05/24/20 13:30 05/29/20 16:44 Propofol 1,000 Mg/100 Ml Vial IV 06/23/20 13:30 1,000 mg INF PRN Administration TO ACHIEVE GOAL RASS Protocol Sodium Chloride 10 ml 05/20/20 09:00 06/02/20 08:32 Flush - Normal Saline 10 Ml Syringe IVF 10 ml Q12HR STEPH Administration Sodium Chloride 10 ml 05/20/20 02:30 06/01/20 09:04 Flush - Normal Saline 10 Ml Syringe IVF 10 ml PRN PRN Administration Saline Flush PHYSICAL EXAMINATION: General - other findings: unresponsive. ENT - other findings: ET tube in place Neck: symmetric Cardiovascular: RRR Gastrointestinal: diminished bowl sounds Extremities - other findings: bilateral leg fullness. mild to moderate bilateral UE edema Neurological The patient is sedated and intubated. He does not follow commands. Does not maintain eye contact. Opens eyes spontaneously, but does not track. No roving eye movements or gaze preference seen. Cranial nerves, pupils 3 mm round, minimally responsive to light. Face symmetric. Tongue midline. Corneals positive. Motor; muscle, tone, and bulk are normal. No spontaneous movement of all 4 extremities seen. Sensory, no withdrawal of all 4 extremities to nailbed pressure. Gait deferred due to patient's mental status. Cerebellar could not be performed secondary to patient's mental status. Data reviewed: EEG reviewed which was negative for seizure activity but showed severe generalized nonspecific cerebral dysfunction. Lab results: WBC 14.0 thou/uL (4.8-10.8) H 06/02/20 03:25 Hgb 9.4 g/dL (14.0-18.0) L 06/02/20 03:25 Hct 28.7 % (42.0-52.0) L 06/02/20 03:25 MCV 83.7 fL (78.0-98.0) 06/02/20 03:25 Plt Count 256 thou/uL (130-400) 06/02/20 03:25 Neutrophils % 79.1 % (42.0-75.0) H 06/02/20 03:25 Band Neuts % (Manual) 1 % (5-11) L 05/20/20 05:33 ABG pH 7.35 (7.35-7.45) 05/29/20 06:30 ABG pCO2 46.9 mmHg (35.0-45.0) H 05/29/20 06:30 ABG pO2 51.2 mmHg (> 70.0) L* 05/29/20 06:30 VBG pH 7.42 (7.32-7.43) 05/24/20 06:30 VBG pCO2 30.9 mmHg (42.0-51.0) L 05/24/20 06:30 VBG pO2 65.3 mmHg (35.0-45.0) H 05/24/20 06:30 Sodium 134 mmol/L (136-145) L 06/02/20 03:25 Potassium 4.8 mmol/L (3.5-5.1) 06/02/20 03:25 Chloride 95 mmol/L (98-107) L 06/02/20 03:25 Carbon Dioxide 21 mmol/L (23-31) L 06/02/20 03:25 BUN 124 mg/dL (8.4-25.7) H 06/02/20 03:25 Creatinine 7.91 mg/dL (0.7-1.3) H 06/02/20 03:25 Glucose 99 mg/dL (83-110) 06/02/20 03:25 Lactic Acid 1.7 mmol/L (0.5-2.2) 05/20/20 01:52 Calcium 8.8 mg/dL (7.8-10.44) 06/02/20 03:25 Total Bilirubin 0.7 mg/dL (0.2-1.2) 05/27/20 03:40 AST 49 U/L (5-34) H 05/27/20 03:40 ALT 96 U/L (8-55) H 05/27/20 03:40 Alkaline Phosphatase 130 U/L (40-110) H 05/27/20 03:40 CK-MB (CK-2) 1.4 ng/mL (0-6.6) 05/19/20 20:40 Troponin I 0.245 ng/mL (< 0.028) H 05/20/20 02:37 C-Reactive Protein 12.35 mg/dL (= or < 0.5) H 05/24/20 04:48 B-Natriuretic Peptide 3710.8 pg/mL (0-100) H 05/23/20 16:22 Serum Total Protein 6.1 g/dL (5.8-8.1) 05/27/20 03:40 Albumin 3.1 g/dL (3.4-4.8) L 05/27/20 03:40 Lipase 4 U/L (8-78) L 05/24/20 04:48 Urine Ketones Negative mg/dL (Negative) 05/25/20 10:00 Urine Blood 1+ (Negative) A 05/25/20 10:00 Urine Nitrite Negative (Negative) 05/25/20 10:00 Ur Leukocyte Esterase 25 Arlene/uL (Negative) A 05/25/20 10:00 Urine RBC 11-20 HPF (0-3) A 05/25/20 10:00 Urine WBC 7-10 HPF (0-3) A 05/25/20 10:00 Ur Squamous Epith Cells None Seen HPF (0-3) 05/25/20 10:00 Urine Bacteria 1+ HPF (None Seen) A 05/25/20 10:00 Sodium 134 mmol/L (136-145) L 06/02/20 03:25 Potassium 4.8 mmol/L (3.5-5.1) 06/02/20 03:25 Chloride 95 mmol/L (98-107) L 06/02/20 03:25 Carbon Dioxide 21 mmol/L (23-31) L 06/02/20 03:25 Anion Gap 23 mmol/L (10-20) H 06/02/20 03:25 BUN 124 mg/dL (8.4-25.7) H 06/02/20 03:25 Creatinine 7.91 mg/dL (0.7-1.3) H 06/02/20 03:25 Glucose 99 mg/dL (83-110) 06/02/20 03:25 Calcium 8.8 mg/dL (7.8-10.44) 06/02/20 03:25 Phosphorus 4.7 mg/dL (2.3-4.7) 05/29/20 03:20 Magnesium 1.9 mg/dL (1.6-2.6) 05/29/20 03:20 Albumin 3.1 g/dL (3.4-4.8) L 05/27/20 03:40 ASSESSMENT AND PLAN: Mr. Ashish Lee is a 75-year-old male with multiple comorbidities consulted for altered mental status/anoxic brain injury. The neurological exam is however limited secondary to sedation, but seems like there is no improvement in neurological status for more than [address] was reviewed which showed signs of anoxic brain injury which has a poor prognosis. Also, the EEG showed severe generalized cerebral dysfunction, which also leads to poor prognosis. The patient currently seems to be in a persistent vegetative state, so chances of functional meaningful recovery seems grave at this time. Continue medical management per primary team. Palliative care consult. No further testing from Neurology perspective. Plan discussed this with the nursing staff Thank you for the consult. Job ID: [id number] MTDD
--- NOTE | 2020-06-02 16:51 | PDOC.HOSPP ---
- Subjective Encounter Date: 06/02/20 Encounter Time: 08:30 Subjective: awakens with eye opening to deep stimuli, not in distress, is on vent with fentanyl of 20mcg - Objective Vital Signs & Weight: Vital Signs (12 hours) Temp Pulse Resp Pulse Ox 06/02/20 16:00 20 06/02/20 15:31 98 06/02/20 14:00 20 06/02/20 12:00 20 06/02/20 11:06 89 06/02/20 10:00 20 06/02/20 08:00 98.9 F 06/02/20 07:47 20 94 L 06/02/20 06:29 110 H 06/02/20 06:00 20 Weight Admit Weight 195 lb 3.408 oz Weight 200 lb 2.876 oz Most Recent Monitor Data Heart Rate from ECG 112 NIBP 120/70 NIBP BP-Mean 86 Respiration from ECG 15 SpO2 96 I&O: 06/01/20 06/02/20 06/03/20 06:59 06:59 06:59 Intake Total 1756 1724.8 202 Output Total 1937 1105 95 Balance -181 619.8 107 Result Diagrams: 06/02/20 03:25 06/02/20 03:25 Hospitalist ROS - Medication Medications: Active Medications Generic Name Dose Route Start Last Admin Trade Name Freq PRN Reason Stop Dose Admin Albuterol Sulfate 2 puff 05/24/20 01:00 06/02/20 13:44 Albuterol 200 Puff (6.7gm Inhaler) INH 2 puff [id number] STEPH Administration Allopurinol 100 mg 05/24/20 09:00 06/02/20 08:32 Allopurinol 100 Mg Tab PO 100 mg DAILY STEPH Administration Aspirin 81 mg 05/25/20 09:00 06/02/20 08:38 Aspirin Chewable 81 Mg Tab PO Not Given DAILY STEPH Atorvastatin Calcium 40 mg 05/20/20 21:00 06/01/20 20:43 Atorvastatin Calcium 40 Mg Tab PO 40 mg HS STEPH Administration Carvedilol 3.125 mg 05/25/20 17:00 06/02/20 16:32 Carvedilol 3.125 Mg Tab PO Not Given BID-WM STEPH Guaifenesin 600 mg 05/26/20 21:00 06/02/20 08:32 Guaifenesin Sf Soln 200 Mg/10 Ml Udcup PER TUBE 600 mg BID STEPH Administration Doxycycline Hyclate 100 mg/ 100 mls @ 100 mls/hr 05/24/20 08:00 06/02/20 08:31 Sodium Chloride IVPB 100 mls 0800,2000 STEPH Administration Fentanyl 100 mls @ 0 mls/hr 05/24/20 13:30 06/02/20 03:49 Fentanyl Cadd IV 06/23/20 13:30 100 mls INF STEPH Administration Protocol Per Protocol Cefepime HCl 1 gm/ Sodium 100 mls @ 200 mls/hr 05/27/20 09:00 06/02/20 08:31 Chloride IVPB 100 mls DAILY STEPH Administration Norepinephrine Bitartrate 250 mls @ 0 mls/hr 05/27/20 10:45 05/30/20 15:05 Levophed IVPB 250 mls INF STEPH Administration Protocol Titrate Dextrose/Water 1,000 mls @ 50 mls/hr 05/30/20 17:50 06/01/20 10:38 D5w IV 1,000 mls .Q20H STEPH Administration Lorazepam 2 mg 05/24/20 13:30 06/02/20 03:32 Lorazepam 2 Mg/Ml Vial SLOW IVP 06/23/20 13:30 2 mg Q1H PRN Administration Breakthrough agitation Metoclopramide HCl 10 mg 05/26/20 07:30 06/02/20 14:44 Metoclopramide Hcl 10 Mg/2 Ml Vial IVP Not Given Q6H STEPH Pantoprazole Sodium 40 mg 05/31/20 09:00 06/02/20 08:32 Pantoprazole 40 Mg Granules Packet PER TUBE 40 mg DAILY STEPH Administration Propofol 1,000 mg 05/24/20 13:30 05/29/20 16:44 Propofol 1,000 Mg/100 Ml Vial IV 06/23/20 13:30 1,000 mg INF PRN Administration TO ACHIEVE GOAL RASS Protocol Sodium Chloride 10 ml 05/20/20 09:00 06/02/20 08:32 Flush - Normal Saline 10 Ml Syringe IVF 10 ml Q12HR STEPH Administration Sodium Chloride 10 ml 05/20/20 02:30 06/01/20 09:04 Flush - Normal Saline 10 Ml Syringe IVF 10 ml PRN PRN Administration Saline Flush Hospitalist Exam Vitals: Vital Signs (12 hours) Temp Pulse Resp Pulse Ox 06/02/20 16:00 20 06/02/20 15:31 98 06/02/20 14:00 20 06/02/20 12:00 20 06/02/20 11:06 89 06/02/20 10:00 20 06/02/20 08:00 98.9 F 06/02/20 07:47 20 94 L 06/02/20 06:29 110 H 06/02/20 06:00 20 Weight Admit Weight 195 lb 3.408 oz Weight 200 lb 2.876 oz Most Recent Monitor Data Heart Rate from ECG 112 NIBP 120/70 NIBP BP-Mean 86 Respiration from ECG 15 SpO2 96 General Appearance: ill appearing Eye: PERRL, anicteric sclera ENT: no oropharyngeal lesions, moist mucosa Neck: supple, no JVD Heart: RRR, no murmur Respiratory: no wheezes, rales, rhonchi Gastrointestinal: soft, non-tender, non-distended, normal bowel sounds Extremities: no cyanosis, no edema Neurological: no focal deficits Hosp A/P (1) Acute respiratory failure with hypoxia and hypercarbia Code(s): J96.01 - ACUTE RESPIRATORY FAILURE WITH HYPOXIA; J96.02 - ACUTE RESPIRATORY FAILURE WITH HYPERCAPNIA Status: Acute (2) Acute on chronic systolic (congestive) heart failure Code(s): I50.23 - ACUTE ON CHRONIC SYSTOLIC (CONGESTIVE) HEART FAILURE Status: Acute (3) Pneumonia Code(s): J18.9 - PNEUMONIA, UNSPECIFIED ORGANISM Status: Acute Qualifiers: Pneumonia type: due to unspecified organism Laterality: bilateral (4) Nonischemic cardiomyopathy Code(s): I42.8 - OTHER CARDIOMYOPATHIES Status: Chronic (5) Atrial fibrillation Code(s): I48.91 - UNSPECIFIED ATRIAL FIBRILLATION Status: Chronic Qualifiers: Atrial fibrillation type: paroxysmal Qualified Code(s): I48.0 - Paroxysmal atrial fibrillation (6) GERD (gastroesophageal reflux disease) Code(s): K21.9 - GASTRO-ESOPHAGEAL REFLUX DISEASE WITHOUT ESOPHAGITIS Status: Chronic Qualifiers: Esophagitis presence: without esophagitis Qualified Code(s): K21.9 - Gastro-esophageal reflux disease without esophagitis (7) Hyperlipidemia Code(s): E78.5 - HYPERLIPIDEMIA, UNSPECIFIED Status: Chronic Qualifiers: (8) Hypertension Code(s): I10 - ESSENTIAL (PRIMARY) HYPERTENSION Status: Chronic Qualifiers: (9) Type 2 diabetes mellitus Status: Chronic Qualifiers: Diabetes mellitus halfway insulin use: without halfway use (10) Hypocalcemia Code(s): E83.51 - HYPOCALCEMIA Status: Resolved (11) Hypokalemia Code(s): E87.6 - HYPOKALEMIA Status: Resolved (12) Acute renal failure Status: Acute (13) Brain anoxic injury Status: Suspected - Plan poor prognosis, has multiple organ failures including resp, cardiac, renal and now suspected anoxic brain injury (although witnessed and prompt resuscitative measures were done on the day he coded) d/w nati and brother at bedside this afternoon, they want him to have comfort care with hospice and will go for withdrawal of care this evening once home arrangements are made. prior ef of 15%, likely is noncomplaint? has nearly 6 covid pcr testing done all of which have been -ve continue eliquis, asp, lipitor. Family have opted for [facility] and has arranged the same. d/w and is in agreement with above plan, may go for withdrawal of care anytime the family is ready for it.
--- NOTE | 2020-06-03 18:27 | DIS ---
DATE OF ADMISSION: 05/19/2020 DATE OF DISCHARGE: 06/02/2020 DISCHARGE DISPOSITION: [facility]. PRIMARY DISCHARGE DIAGNOSES: Acute respiratory failure with hypoxia, acute on chronic congestive heart failure exacerbation with systolic dysfunction, bilateral pneumonia, possible anoxic brain injury, acute renal failure. SECONDARY DISCHARGE DIAGNOSES: Nonischemic cardiomyopathy, chronic atrial fibrillation, gastroesophageal reflux disease, dyslipidemia, hypertension, diabetes mellitus type 2. PROCEDURES DONE DURING HOSPITALIZATION: Chest x-ray done showed bilateral airspace disease. No pneumothorax. CT angio chest done on the day of admission showed no evidence of pulmonary embolus. There are severe CAT scan abnormalities of multifocal pneumonia suspicious for COVID. MRI brain done on 05/20/2020, showed no acute infarct or intracranial hemorrhage, but this was limited due to motion artifact. Echo with 2D Doppler done on 05/28/2020, showed an EF of 15% to 20%, moderate aortic stenosis, moderate aortic regurgitation, moderate mitral regurgitation. CT brain done on 05/29/2020, showed indistinct zamora-white differentiation in both cerebral hemispheres. This could be benign artifact versus early edema related to diffuse infarct from hypoperfusion or an anoxic injury. No evidence of hemorrhage was seen. EEG done on 06/01/2020, showed findings consistent with severe generalized nonspecific cerebral dysfunction. LABORATORY DATA: Urine culture, no growth. H and H of 9 and 28, platelet count 256. Discharge BUN and creatinine of 124 and 7.9, serum bicarb 21 on the day of discharge. BNP was 3710. COVID-19 PCR was not detected on 05/19/2020. DISCHARGE MEDICATIONS: Morphine, Ativan p.r.n. for comfort. INPATIENT CONSULT: Dr. Raymond for Pulmonology, Dr. Mcgee for Neurology, Dr. Duong for Nephrology, Dr. Lockwood for Cardiology. BRIEF COURSE DURING HOSPITALIZATION: The patient initially got admitted on the with complaints of shortness of breath and altered mental state. He was also found to have had CHF exacerbation with prior systolic dysfunction and ejection fraction of around 15%. The patient had bilateral infiltrates on the x-ray. He has had nearly 6 COVID-19 PCRs done, all of which were negative. The patient was placed on broad-spectrum antibiotics and was gently diuresed. During the course of his stay, the patient became more obtunded and a code was called on 05/24/2020. He was intubated. Post-intubation, the patient was in junctional rhythm and bradycardia. He was given multiple doses of epinephrine and was resuscitated in ICU. He was briefly on epinephrine drip, which was soon discontinued. The patient did not improve from then on, and his cognitive status was declining. He has had an EEG done, which showed severe nonspecific cerebral dysfunction. A CT brain done on the showed findings of indistinct zamora-white differentiation suggesting cerebral edema from likely anoxic injury. In view of multiple organ failures and possible anoxic brain injury, multiple conversations were held with the patient's niece, Ms. Gonzalez and her brother Mr. Brian Lee. They are the known two living family members of the patient as he apparently has had no children or was not . The niece and brother did not want him to suffer anymore and went for withdrawal of care with [facility]. He has been transitioned over to inpatient hospice on the . His overall prognosis is very poor. Job ID: [id number]
--- NOTE | 2020-06-06 12:33 | EKG ---
Test Reason : Blood Pressure : / mmHG Vent. Rate : 090 BPM Atrial Rate : 090 BPM P-R Int : 172 ms QRS Dur : 100 ms QT Int : 410 ms P-R-T Axes : 039 -11 094 degrees QTc Int : 501 ms Normal sinus rhythm Possible Left atrial enlargement Anterior infarct , age undetermined Abnormal ECG Confirmed by ALFA ECKERT M.D. ([id number]), graphic editor NIDIA PHILIPPE ([id number]) on 06/06/2020 12:32:50 PM Referred By: Confirmed By:ALFA ECKERT M.D.
== END 2020-06-02 18:15 | disposition hospice, inpatient (51) | DRG 870 ==
LOC: ERS 19:53 → 2SW 21:26 → CCU 05-24 13:02
PROVIDERS: ADMIT Internal Medicine; ATTEND Internal Medicine
PROC: 8E0ZXY6 Isolation (ICD-10-PCS; 2020-05-19)
PROC: 5A1955Z Respiratory Ventilation, Greater than 96 Consecutive Hours (ICD-10-PCS; principal; 2020-05-24)
PROC: 0BH17EZ Insertion of Endotracheal Airway into Trachea, Via Natural or Artificial Opening (ICD-10-PCS; 2020-05-24)
PROC: 06HY33Z Insertion of Infusion Device into Lower Vein, Percutaneous Approach (ICD-10-PCS; 2020-05-24)
PROC: 3E033XZ Introduction of Vasopressor into Peripheral Vein, Percutaneous Approach (ICD-10-PCS; 2020-05-24)
DX: A41.9 Sepsis, unspecified organism (principal); I50.23 Acute on chronic systolic (congestive) heart failure; J96.01 Acute respiratory failure with hypoxia; J96.02 Acute respiratory failure with hypercapnia; Z51.5 Encounter for palliative care; Z66 Do not resuscitate; J18.9 Pneumonia, unspecified organism; R57.0 Cardiogenic shock; N17.0 Acute kidney failure with tubular necrosis; G93.6 Cerebral edema; I42.8 Other cardiomyopathies; N39.0 Urinary tract infection, site not specified; I13.0 Hypertensive heart and chronic kidney disease with heart failure and stage 1 through stage 4 chronic kidney disease, or unspecified chronic kidney disease; E87.2 Acidosis; E87.3 Alkalosis; E87.0 Hyperosmolality and hypernatremia; G93.1 Anoxic brain damage, not elsewhere classified; G93.49 Other encephalopathy; I48.20 Chronic atrial fibrillation, unspecified; F03.90 Unspecified dementia, unspecified severity, without behavioral disturbance, psychotic disturbance, mood disturbance, and anxiety; E11.22 Type 2 diabetes mellitus with diabetic chronic kidney disease; E78.5 Hyperlipidemia, unspecified; F20.9 Schizophrenia, unspecified; N18.30 Chronic kidney disease, stage 3 unspecified; I35.0 Nonrheumatic aortic (valve) stenosis; I34.0 Nonrheumatic mitral (valve) insufficiency; E55.9 Vitamin D deficiency, unspecified; I25.10 Atherosclerotic heart disease of native coronary artery without angina pectoris; K21.9 Gastro-esophageal reflux disease without esophagitis; Z20.822 Contact with and (suspected) exposure to COVID-19; M10.9 Gout, unspecified; E83.51 Hypocalcemia; E87.5 Hyperkalemia; E88.09 Other disorders of plasma-protein metabolism, not elsewhere classified; Z53.8 Procedure and treatment not carried out for other reasons; Z90.49 Acquired absence of other specified parts of digestive tract; Z91.19 Patient's noncompliance with other medical treatment and regimen; R00.1 Bradycardia, unspecified
CPT/HCPCS: 0240U; 36415; 36416; 36600; 70450; 70551; 71045; 71275; 74018; 80048; 80053; 80076; 81001; 82040; 82306; 82553; 82570; 82805; 83605; 83690; 83735; 83880; 84100; 84145; 84156; 84300; 84484; 84540; 85007; 85025; 85027; 85610; 85730; 86140; 86769; 87086; 92950; 93005; 93010; 93306; 94002; 94003; 95816; 95819; 95957; 96374; 96375; C9113; J0171; J0692; J1100; J1160; J1250; J1940; J2001; J2060; J2704; J2765; J3010; J3370; J3475; J3480; J3490; J7030; J7070; P9047

== ENCOUNTER 2020-06-02 18:27 | Inpatient (IN) | payer MEDICARE, OTHER ==
[2020-06-02] MEDS ORDERED: Morphine 4 MG/ML VIAL SLOW IVP PRN (19:08)
[2020-06-02] MEDS ORDERED: Haloperidol Lactate 5 MG/ML VIAL SLOW IVP PRN (19:15)
[2020-06-02] MEDS ORDERED: Scopolamine 1.5 mg/72 hour Patch TOP PRN ×2 (19:15)
[2020-06-02] MEDS ORDERED: diphenhydrAMINE 25 MG CAP PO PRN (19:15)
[2020-06-02] MEDS ORDERED: Zolpidem Tartrate 5 MG TAB PO PRN (19:15)
[2020-06-02] MEDS ORDERED: diphenhydrAMINE 50 MG/ML VIAL IVP PRN (19:15)
[2020-06-02] MEDS ORDERED: Ondansetron PF 4 MG/2 ML Vial IVP PRN (19:15)
[2020-06-02] MEDS ORDERED: Hyoscyamine Sulfate SL 0.125 mg Tablet SL PRN (19:15)
[2020-06-02] MEDS ORDERED: Morphine IR Tab 15 MG TAB PO PRN (19:15)
[2020-06-02] MEDS ORDERED: Senokot 8.6 MG TAB PO PRN (19:15)
[2020-06-02] MEDS ORDERED: Ondansetron ODT 4 MG TAB PO PRN (19:15)
[2020-06-02] MEDS ORDERED: Lorazepam 2 MG/ML VIAL SLOW IVP PRN ×2 (19:15)
[2020-06-02] MEDS ORDERED: ALPRAZolam 0.25 MG TAB PO PRN (19:15)
[2020-06-02] MEDS ORDERED: chlorproMAZINE HCl 25 MG in Sodium Chloride 0.9% 50 ML IVPB PRN (19:15)
[2020-06-02] MEDS ORDERED: Lorazepam 1 MG TAB PO PRN ×2 (19:15)
[2020-06-02] MEDS ORDERED: Milk Of Magnesia 30 ML UDCUP PO PRN (19:15)
[2020-06-02] MEDS ORDERED: Acetaminophen 650 MG Suppository PR PRN (19:15)
[2020-06-02] MEDS ORDERED: Loperamide HCl 2 MG CAP PO PRN (19:15)
[2020-06-02] MEDS ORDERED: chlorproMAZINE HCl 50 MG/2 ML AMP IM PRN ×2 (19:15)
[2020-06-02] MEDS ORDERED: Promethazine HCl 25 MG SUPP PR PRN (19:15)
[2020-06-02] MEDS ORDERED: Acetaminophen 325 MG TAB PO PRN (19:15)
[2020-06-02] MEDS ORDERED: Morphine 10 MG/0.5 ML ORAL SYRINGE SL PRN (19:15)
== END 2020-06-02 21:34 | disposition expired | DRG 951 ==
LOC: CCU 18:27
PROVIDERS: ADMIT Family Medicine; ATTEND Family Medicine
DX: Z51.5 Encounter for palliative care (principal); A41.9 Sepsis, unspecified organism; J18.9 Pneumonia, unspecified organism; I42.8 Other cardiomyopathies; I48.91 Unspecified atrial fibrillation; F03.90 Unspecified dementia, unspecified severity, without behavioral disturbance, psychotic disturbance, mood disturbance, and anxiety; E11.22 Type 2 diabetes mellitus with diabetic chronic kidney disease; I12.9 Hypertensive chronic kidney disease with stage 1 through stage 4 chronic kidney disease, or unspecified chronic kidney disease; E78.5 Hyperlipidemia, unspecified; M10.9 Gout, unspecified; F20.9 Schizophrenia, unspecified; Z90.49 Acquired absence of other specified parts of digestive tract
CPT/HCPCS: J2270